=== PATIENT | male | born 1990 | race Caucasian/White ===

== ENCOUNTER 2023-08-04 21:58 | Emergency (ER) | payer OTHER, SELFPAY ==
[2023-08-04 22:06] VITALS: BP 179/126; PULSE 95; RESP 22; TEMP 36.6; O2SAT 95; BMI 40.7
--- NOTE | 2023-08-04 22:38 | ED_ITS ---
HPI - Back Pain/Injury General Chief Complaint: Back Pain/Injury Stated Complaint: BACK PAIN Time Seen by Provider: 08/04/23 22:31 History of Present Illness HPI Narrative: back pain. states past history of back pain. States he has a slipped disc . states he has treated in the past with exercise and Chiropractor. Developed pain 4 days ago. Hard to get out of bed. States once in his truck with ice on his back the pain eases up and feels better. He can step out of the truck and actual ly feel ok. Works as a welder apprentice gas. No weakness of his lower extremities. Pain right lower back . no recent injury Related Data Home Medications Medication Instructions Recorded Confirmed niacin 500 mg tablet 500 mg PO DAILY 08/04/23 08/04/23 Allergies Allergy/AdvReac Type Severity Reaction Status Date / Time No Known Drug Allergies Allergy Verified 08/04/23 22:12 Review of Systems ROS Status of ROS 10 or more systems reviewed and unremarkable except as noted in history and below [facility] Social History Smoking status: Current every day smoker Exam Constitutional Vital Signs, click to edit/add: Last Vital Signs Temp 98 F 08/04/23 22:06 Pulse 95 H 08/04/23 22:06 Resp 22 08/04/23 22:06 BP 180/100 H 08/04/23 22:55 Pulse Ox 95 08/04/23 22:06 O2 Del Method Room Air 08/04/23 22:06 Common normals: no apparent distress, average body habitus, oriented x3, no limitations, healthy appearing, alert and well nourished Other: no discomfort lying flat on his back. When he rolls onto his side he experiences spasmodic pain of his lower back Eye Common normals: EOMs intact bilaterally and conjunctivae normal Respiratory Common normals: normal respiratory effort, no retractions, no use of accessory muscles and clear to auscultation bilaterally Cardio Common normals: regular rate, regular rhythm, S1 normal heart sound and S2 normal heart sound GI Common normals: Normal to inspection, nondistended, normoactive bowel sounds present, soft to palpation and non-tender Back & Pelvis Other: right lumbar paravertebral muscle tenderness Extremity Common normals: normal to inspection and full ROM Neuro Common normals: oriented x3, CN's II-XII intact bilaterally, moves all extremities, no focal motor deficits and no sensory deficits noted Psych Appearance: grossly normal Course Vital Signs Vital signs: Vital Signs Temperature 98 F 08/04/23 22:06 Pulse Rate 95 H 08/04/23 22:06 Respiratory Rate 22 08/04/23 22:06 Blood Pressure 179/126 H 08/04/23 22:06 Pulse Oximetry 95 08/04/23 22:06 Oxygen Delivery Method Room Air 08/04/23 22:06 Temperature 98 F 08/04/23 22:06 Pulse Rate 95 H 08/04/23 22:06 Respiratory Rate 22 08/04/23 22:06 Blood Pressure 180/100 H 08/04/23 22:55 Pulse Oximetry 95 08/04/23 22:06 Oxygen Delivery Method Room Air 08/04/23 22:06 MDM - Back Pain/Injury MDM Narrative Medical decision making narrative: patient presents with lower back pain. similar pain in the past. Pain right lower lumbar musculature. Treated in the department with significant improvement in his pain. BP elevated. he is aware of this and doesn't want to treat it. States he will exercise. His RBS is also elevated and will need follow up. He does not have a PCP and he was provided with a name of the back tender insulation board PCP. He is discharged with a prescription for Norflex and also work note for today and tomorrow Lab Data Labs: Lab Results 08/04/23 Range/Units 22:50 WBC 7.3 (4.0-11.0) 10^3/uL RBC 5.01 (4.70-6.10) 10^6/uL Hgb 15.5 (14.0-18.0) g/dL Hct 44.7 (42.0-54.0) % MCV 89.2 (80.0-94.0) fL MCH 30.9 (25.9-34.0) pg MCHC 34.7 (29.9-35.2) g/dL RDW 12.0 (11.0-15.0) % Plt Count 203 (150-450) 10^3/uL MPV 10.6 (9.5-13.5) fL Neut % (Auto) 58.1 (43.0-75.0) % Lymph % (Auto) 26.9 (20.5-60.0) % [place] % (Auto) 10.3 (1.7-12.0) % Eos % (Auto) 3.6 (0.9-7.0) % Baso % (Auto) 0.7 (0.2-2.0) % Neut # (Auto) 4.2 (1.4-6.5) 10^3/uL Lymph # (Auto) 2.0 (1.2-3.8) 10^3/uL [place] # (Auto) 0.8 (0.3-0.8) 10^3/uL Eos # (Auto) 0.3 (0.0-0.7) 10^3/uL Baso # (Auto) 0.1 (0.0-0.1) 10^3/uL Abs Immat Gran (auto) 0.03 (0.00-0.03) 10^3/uL Imm/Tot Granulo (auto) 0.4 (0.0-0.5) % ESR 13 (<=15) mm/hr Sodium 138 (136-145) mmol/L Potassium 3.6 (3.5-5.1) mmol/L Chloride 102 (98-107) mmol/L Carbon Dioxide 28.2 (21.0-32.0) mmol/L Anion Gap 11.4 BUN 18.0 (7.0-18.0) mg/dL Creatinine 1.13 (0.70-1.30) mg/dL Est GFR ( Amer) >60 (>=60) Est GFR (Non-Af Amer) >60 (>=60) BUN/Creatinine Ratio 15.9 Glucose 175 H (74-106) mg/dL Calcium 8.7 (8.5-10.1) mg/dL C-Reactive Protein <1.0 (<=1.0) mg/dL Discharge Plan Discharge Chief Complaint: Back Pain/Injury Clinical Impression: Strain of lumbar region, Hyperglycemia, Hypertension Patient Disposition: Home, Self-Care Prescriptions / Home Meds: No Action niacin 500 mg tablet 500 mg PO DAILY Instructions: Hypertension (ED), Back Pain (ED), Diabetic Hyperglycemia (ED) Additional Instructions: follow up with your family doctor or with Dr Cardenas. Take Norflex twice daily as needed for back pain. Stand Alone Forms: Portal Instructions Referrals: Physician,Non-Staff, MD [Primary Care Provider] - 1 week
[2023-08-04 22:55] VITALS: BP 180/100
[2023-08-04 22:57] LABS: Basophils Absolute Auto 0.1 10^3/uL (0.0-0.1); Basophils Percent Auto 0.7 % (0.2-2.0); Eosinophils Absolute Auto 0.3 10^3/uL (0.0-0.7); Eosinophils Percent Auto 3.6 % (0.9-7.0); Hematocrit 44.7 % (42.0-54.0); Hemoglobin 15.5 g/dL (14.0-18.0); Immature Granulocytes Abs Auto 0.03 10^3/uL (0.00-0.03); Immature Granulocytes Pct Auto 0.4 % (0.0-0.5); Lymphocytes Percent Auto 26.9 % (20.5-60.0); Mean Corpuscular HGB Conc 34.7 g/dL (29.9-35.2); Mean Corpuscular Hemoglobin 30.9 pg (25.9-34.0); Mean Corpuscular Volume 89.2 fL (80.0-94.0); Mean Platelet Volume 10.6 fL (9.5-13.5); Monocytes Absolute Auto 0.8 10^3/uL (0.3-0.8); Monocytes Percent Auto 10.3 % (1.7-12.0); Neutrophils Absolute Auto 4.2 10^3/uL (1.4-6.5); Neutrophils Percent Auto 58.1 % (43.0-75.0); Platelet Count 203 10^3/uL (150-450); Red Blood Count 5.01 10^6/uL (4.70-6.10); White Blood Count 7.3 10^3/uL (4.0-11.0)
[2023-08-04 23:01] LABS: Erythrocyte Sedimentation Rate 13 mm/hr (<=15)
[2023-08-04 23:06] LABS: Anion Gap 11.4; BUN Creatinine Ratio 15.9; Calcium 8.7 mg/dL (8.5-10.1); Carbon Dioxide 28.2 mmol/L (21.0-32.0); Chloride 102 mmol/L (98-107); Estimated GFR (African America >60 (>=60); Estimated GFR (Non-African Ame >60 (>=60); Glucose 175 mg/dL (74-106); Potassium 3.6 mmol/L (3.5-5.1); Sodium 138 mmol/L (136-145)
[2023-08-04] MEDS: MAGNESIUM SULFATE IN WATER 2 GM/50 ML PREMIX IV (23:06)
[2023-08-04 23:07] LABS: C Reactive Protein <1.0 mg/dL (<=1.0)
[2023-08-04] MEDS: METHYLPREDNISOLONE SOD SUCC PF 125 MG/2 ML VIAL IVP (23:09)
[2023-08-04] MEDS: ORPHENADRINE 60 MG/ 2 ML VIAL IV (23:09)
== END 2023-08-05 00:25 | disposition home or self-care (01) ==
PROVIDERS: Emergency Provider Internal Medicine
DX: S39.012A Strain of muscle, fascia and tendon of lower back, initial encounter (principal); I10 Essential (primary) hypertension; X58.XXXA Exposure to other specified factors, initial encounter; R73.9 Hyperglycemia, unspecified; F17.210 Nicotine dependence, cigarettes, uncomplicated; Z79.899 Other long term (current) drug therapy
CPT/HCPCS: 36415; 80048; 85025; 85652; 86140; 96365; 96375; 99284; J2930

== ENCOUNTER 2023-08-07 15:23 | Outpatient (OUT) | payer SELFPAY ==
--- NOTE | 2023-08-07 15:58 | XR_ITS ---
[facility] [id number] Patient Name: JAMAL NICOLE MRN: [id number] date: 1990 Sex: M Assigned Patient Location: RAD Current Patient Location: RAD Accession/Order Number: [id number] Exam Date: 08/07/2023 15:45 Report Date: 08/07/2023 16:16 At the request of: MARIA DOLORES BROWN Procedure: XR thoracic spine 2V XR thoracic spine 2V, XR lumbar spine min 4V, 08/07/2023 3:45 PM EDT INDICATION: Low Back Pain COMPARISON: Prior x-ray dated 03/07/2020 There is a normal physiologic lumbar lordosis and thoracic kyphosis. Mild mid thoracic degenerative changes are noted. Mild degenerative changes at the level of L4-L5 and L5-S1 are noted. There is no acute fracture or dislocation. SI joints are unremarkable. There is nonspecific bowel gas. XR/XR thoracic spine 2V IMPRESSION: Degenerative changes. Electronically authenticated by: VICTORINO ARENAS Date: 08/07/2023 16:16
--- NOTE | 2023-08-07 15:58 | XR_ITS ---
[facility] [id number] Patient Name: JAMAL NICOLE MRN: [id number] date: 1990 Sex: M Assigned Patient Location: RAD Current Patient Location: [facility] Accession/Order Number: [id number] Exam Date: 08/07/2023 15:45 Report Date: 08/07/2023 16:16 At the request of: MARIA DOLORES BROWN Procedure: XR lumbar spine min 4V XR thoracic spine 2V, XR lumbar spine min 4V, 08/07/2023 3:45 PM EDT INDICATION: Low Back Pain COMPARISON: Prior x-ray dated 03/07/2020 There is a normal physiologic lumbar lordosis and thoracic kyphosis. Mild mid thoracic degenerative changes are noted. Mild degenerative changes at the level of L4-L5 and L5-S1 are noted. There is no acute fracture or dislocation. SI joints are unremarkable. There is nonspecific bowel gas. XR/XR lumbar spine min 4V IMPRESSION: Degenerative changes. Electronically authenticated by: VICTORINO ARENAS Date: 08/07/2023 16:16
== END 2023-08-07 15:24 | disposition home or self-care (01) ==
LOC: RAD 15:25
PROVIDERS: PCP Nurse Practitioner; Visit Provider Nurse Practitioner
DX: M54.50 Low back pain, unspecified (principal); M51.36 Other intervertebral disc degeneration, lumbar region; M51.34 Other intervertebral disc degeneration, thoracic region
CPT/HCPCS: 72070; 72110

== ENCOUNTER 2023-08-14 14:12 | Outpatient (RCR) | payer SELFPAY | END 2023-08-30 16:41 | disposition home or self-care (01) | LOC: PT 14:12 | PROVIDERS: PCP Nurse Practitioner; Visit Provider Nurse Practitioner | DX: M54.50 Low back pain, unspecified (principal); M54.9 Dorsalgia, unspecified | CPT/HCPCS: 97012; 97110; 97162 ==

== ENCOUNTER 2024-09-21 18:36 | Emergency (ER) | payer OTHER, SELFPAY ==
[2024-09-21 18:45] VITALS: BP 180/100; PULSE 86; TEMP 36.9; O2SAT 97; BMI 48.4
--- OUTSIDE RECORDS SUMMARY | 2024-09-21 18:53 | XMS_ITS | CCD ---
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 advised. Normal [facility] Chlam/GC/Trich,NAAon 023 C. trachomatis rRNA GRISELDA+probe Ql (Unsp spec) Negative Invalid Interpretation Code Negative [facility] Comment on above: Performed By: #### 1 [id number], [id number] ####[facility] [id number] [facility] [place] [place] [address] N. gonorrhoeae rRNA GRISELDA+probe Ql (Unsp spec) Negative Invalid Interpretation Code Negative [facility] Comment on above: Performed By: #### 1 [id number], [id number] ####[facility] [id number] [facility] [place] [address] T. vaginalis rRNA GRISELDA+probe Ql (Unsp spec) Negative Invalid Interpretation Code Negative [facility] Comment on above: Result Comment: Perf ormed at: =G [facility] [place] [address] [facility] [place], [place] [id number] MD Catherine Deshpande Performed By: #### 1 [id number], [id number] ####[facility] [id number] [facility] [place] [place] [address] Family Medicine Office/Clini c Noteon 06-06-2023 Family Medicine Office/Clinic Note HPI Staff Emanuel is a 33 year old male presenting with Blood in Semen Pt was under the influence of Alcohol and drank Febreeze 2 weeks ago states went down smooth and did have diarrhea. pt noticed blood in semen yesterday, denies pain with ejaculation but does have blood, intermittent burning with urination. Pt was testing in 02/2023 for STD's no concerns for STD hasn't had any sexual contact since last time was checked. History of Present Illness pt presents today with c/o blood in semen Review of Systems PHQ Score Initial Depression Screen Score: 0 ROS - Provider Constitutional: no fever, no chills, no sweats, no fatigue Respiratory: no shortness of breath, no cough, no orthopnea, no wheezing. Cardiovascular: no chest pain, no palpitations, no edema. Neurologic: no headache, no dizziness, no numbness, no weakness. Physical Exam Vitals & Measurements HR: 118(Peripheral) RR: 18 BP: 172/110 SpO2: 98% HT: 67 in HT: 170.2 cm WT: 115.4 kg WT: 253.88 lb BMI: 39.84 General: alert, no acute distress ENMT: oral mucosa moist, no pharyngeal erythema or exudate Cardiovascular: regular rate and rhythm, normal peripheral perfusion Respiratory: Lungs CTA, respirations non labored Extremities: no deformity, no trauma Neurological: oriented x 4, LOC appropriate for age, CN II-XII intact, motor strength equal & normal bilaterally, speech normal Assessment/Plan 1. Abnormal penile discharge, with blood (R36.9: Urethral discharge, unspecified) pt presents today c/o having blood in semen when ejaculating. pt denies pain with ejaculation, but does have some burning when he urinates. will collect urine in office and do U/A and will also test for std's. encouraged pt to stay well hydrated and decrease alcohol intake. will notify pt of results when they are in. pt denies having intercourse since November. So he does not think it is a STD. pt admits to drinking febreeze 2 weeks ago and he is concerned that is why he has blood in his semen. reassured pt that the two are probably not related. he did have some diarrhea. but otherwise no other ill effects from drinking febreeze. pt unable to provide urine sample after drink several cups of water. specimen cup was provided. he will drop urine off later Ordered: Chlam/GC/Trich,GRISELDA UA With Cult Reflex 2. Hypertension (I10: Essential (primary) hypertension) BP is elevated in office again today. pt states I am not taking BP meds. I don't like how they make me feel. educated pt on the importance of controlling BP. Discussed risks of heart attack and stroke. pt states he appreciates my concern but he will not take BP meds. Pt is currently a heavy smoker and drinker and understands his risks of cardiac event or blood clot. Ordered: Chlam/GC/Trich,GRISELDA UA With Cult Reflex 3. Refuses treatment (Z53.20: Procedure and treatment not carried out because of patient's decision for unspecified reasons) pt refuses to start BP medication. Ordered: Chlam/GC/Trich,GRISELDA UA With Cult Reflex 4. BMI 39.0-39.9,adult (Z68.39: Body mass index [BMI] 39.0-39.9, adult) BMI education complete Ordered: Chlam/GC/Trich,GRISELDA UA With Cult Reflex 5. Smoker (F17.200: Nicotine dependence, unspecified, uncomplicated) consider not smoking. not willing to try today Ordered: Chlam/GC/Trich,GRISELDA UA With Cult Reflex Follow-up No qualifying data available Problem List/Past Medical History Ongoing Abnormal penile discharge, with blood H/O: HTN (hypertension) Hypertension Refuses treatment Historical No qualifying data Procedure/Surgical History Arthroscopy of knee, Loss of teeth due to extraction. Medications niacin 500 mg oral tablet, 500 mg= 1 tab(s), Oral, Daily Allergies Suprax (Unknown) Social History Tobacco Current vaping or e-cigarette use Smokeless Tobacco Use:. Vaping, Ready to change: No. Household tobacco concerns: No., 06/06/2023 Family History Diabetes mellitus type 1: Father. Hypertension: Mother. Immunizations Vaccine Date Status Comments SARS-CoV-2 mRNA (tozinameran 5y-11y) vac - Not Given Postpone due to refusal Normal [facility] Comment on above: Result Comment: Elec tronically Signed By: Nancy Blevins\.clayton\Date and Time Signed: 06/06/23 12:37 EDT UA With Cult Reflexon 2022 Bacteria LM Ql (Urine sed) TRACE Normal Trace [facility] Comment on above: Performed By: #### 1 [id number], [id number] ####[facility] [id number] [place] [address] Bilirubin Ql (U) Negative Normal Negative [facility] Comment on above: Performed By: #### 1 [id number], [id number] ####[facility] [address] [place] [address] Clarity (U) CLEAR Normal Clear [facility] Comment on above: Performed By: #### 1 [id number], [id number] ####[facility] [address] [place] [address] Color (U) YELLOW Normal Yellow [facility] Comment on above: Performed By: #### 1 [id number], [id number] ####[address] [place] [address] Epithelial cells.squamous LM.HPF (Urine sed) [#/Area] 0-2 Normal 0-2 [facility] Comment on above: Performed By: #### 1 [id number], [id number] ####[address] [place] [address] Glucose Test strip (U) [Mass/Vol] Negative Normal Negative [facility] Comment on above: Performed By: #### 1 [id number], [id number] ####[address] [address] Hemoglobin Ql (U) Negative Normal Negative [facility] Comment on above: Performed By: #### 1 [id number], [id number] ####[address] [address] Ketones (U) [Mass/Vol] Negative Normal Negative [facility] Comment on above: Performed By: #### 1 [id number], [id number] ####[address] [address] [place].plasma/Lithi um.RBC (Bld) [Mass ratio] 0-3 Normal 0-3 [facility] Comment on above: Performed By: #### 1 [id number], [id number] ####[address] [place] [address] Nitrite Ql (U) Negative Normal Negative [facility] Comment on above: Performed By: #### 1 [id number], [id number] ####[address] [place] [address] pH (U) 6.0 [pH] Invalid Interpretation Code 5.0-9.0 [facility] Comment on above: Performed By: #### 1 [id number], [id number] ####[address] [place] [address] Protein (U) [Mass/Vol] Negative Normal Negative [facility] Comment on above: Performed By: #### 1 [id number], [id number] ####[address] [address] Specific gravity (U) [Rel density] <=1.005 Invalid Interpretation Code 1.005-1.030 [facility] Comment on above: Performed By: #### 1 [id number], [id number] ####[address] [address] Type of Urine collection method Random Urine Normal [facility] Comment on above: Performed By: #### 1 [id number], [id number] ####[address] [address] Urobilinogen Qn (U) 0.2 {Dariusz'U}/dL Normal 0.0-1.0 [facility] Comment on above: Performed By: #### 1 [id number], [id number] ####[address] [address] WBC Auto Ql (U) Negative Normal Negative [facility] Comment on above: Performed By: #### 1 [id number], [id number] ####[facility] [address] [place] [address] WBC LM.HPF (Urine sed) [#/Area] 0-5 Normal 0-5 [facility] Comment on above: Performed By: #### 1 [id number], [id number] ####[facility] [address] [place] [address] URINALYSISOrdered By: Lawrence crocker on 06-06-2023 Bacteria LM Ql (Urine sed) Trace /HPF Normal Trace/HPF [facility] UA Auto SS Bilirubin Ql (U) Negative (06/06/23 12:40 PM) Normal Negative [facility] UA Auto SS Clarity (U) Clear (06/06/23 12:40 PM) Normal Clear [facility] UA Auto SS Color (U) Yellow (8/18/23 12:40 PM) Normal Yellow [facility] UA Auto SS Epithelial cells.squamous LM.HPF (Urine sed) [#/Area] 0-2 /HPF Normal 0-2/HPF [facility] UA Auto SS Glucose Test strip (U) [Mass/Vol] Negative (06/06/23 12:40 PM) Normal Negative [facility] UA Auto SS Hemoglobin Ql (U) Negative (06/06/23 12:40 PM) Normal Negative [facility] UA Auto SS Ketones (U) [Mass/Vol] Negative (06/06/23 12:40 PM) Normal Negative [facility] UA Auto SS [place].plasma/Lithi um.RBC (Bld) [Mass ratio] 0-3 /HPF Normal 0-3/HPF [facility] UA Auto SS Nitrite Ql (U) Negative (06/06/23 12:40 PM) Normal Negative [facility] UA Auto SS pH (U) 6.0 *NA* (06/06/23 12:40 PM) Invalid Interpretation Code 5.0 - 9.0 [facility] UA Auto SS Protein (U) [Mass/Vol] Negative (06/06/23 12:40 PM) Normal Negative [facility] UA Auto SS Specific gravity (U) [Rel density] <=1.005 *NA* (06/06/23 12:40 PM) Invalid Interpretation Code 1.005 - 1.030 [facility] UA Auto SS UA Spec Desc Random Urine (06/06/23 12:40 PM) Normal [facility] UA Auto SS Urobilinogen Qn (U) 0.0102922 {Dariusz'U}/dL Normal 0.0 - 1.0 EU/dL [facility] UA Auto SS WBC Auto Ql (U) Negative (06/06/23 12:40 PM) Normal Negative [facility] UA Auto SS WBC LM.HPF (Urine sed) [#/Area] 0-5 /HPF Normal 0-5/HPF [facility] UA Auto SS COVID Quick Testingon 2020 Result Negative [facility] Other Operative Reporton 0 Operative Report MR#: [id number] [facility] Pt. Name: Emanuel Patel Room #: 0C Discharge Date: Birthdate: 1990 OPERATIVE REPORT DATE OF SURGERY: 04/04/2020 SURGEON: Cedrick Mendoza M.D. ASSISTANTS: 1. Fidencio Painting MD. 2. Ana Lainez MD. 3. Aiden Ardon MD. PREOPERATIVE DIAGNOSIS: Left medial meniscus tear. POSTOPERATIVE DIAGNOSES: 1. Left medial meniscus tear. 2. Left medial femoral condyle chondromalacia. PROCEDURE PERFORMED: 1. Left medial meniscus debridement. 2. Medial femoral condyle chondroplasty. 3. Fat pad debridement. ANESTHESIA: General. FLUIDS: Per anesthesia record. BLOOD LOSS: Minimal complications none. SPECIMENS: None. IMPLANTS: None. INDICATION: THE patient is a 30-year-old male who presented to our clinic with significant mechanical symptoms in his left knee. MRI demonstrated a likely meniscal tear in the aforementioned procedure to offer the patient after he failed extensive nonoperative management. Risks, benefits, and alternatives were discussed the patient elected to proceed. Informed consent was obtained. DESCRIPTION OF PROCEDURE: The patient was in the preoperative holding area. The operative site was marked by the attending physician. Anesthesia met the patient and brought him back to the operating room, positioned supine on the operating table. Anesthesia was induced. He was intubated. The nonsterile tourniquet was applied, but not used during the case. The extremity was prepped and draped in normal sterile fashion. Surgical time-out was performed to verify correct patient, procedure, site of surgery, and antibiotics had been given. We began by marking out our bony landmarks. We then established our lateral portal and introduced our scope. We first entered the suprapatellar compartment and noted there was no significant patellar wear and we then moved to the lateral recess. There were no free bodies visualized in the lateral recess. We then moved to the medial recess and once again found no significant bleeding. We then fell into the medial compartment and established our medial portal under direct visualization, first using a spinal needle guidance and then using an inverted scalpel under direct visualization to avoid meniscal injury. At this point, we introduced a probe and then began to finish the rest of our diagnostic arthroscopy. We visualized the medial meniscus, saw some irregularity along the body in the posterior horn. We probed the body, found the horizontal cleavage tear in this area. We also probed the posterior horn. There was some irregularity, but the horn was stable. We then moved to the intercondylar notch. The ACL was intact. We then moved to the lateral compartment, found the lateral meniscus was pristine with no cartilage injury. Again on the medial side, there was some cartilaginous wear of the medial femoral condyle, but only grade 1 chondromalacia. We then began by first performing our medial femoral condyle chondroplasty, which I slightly debrided the loose cartilage flaps back to stable borders. After this was performed, we then turned our attention to the meniscus. We first went to the posterior horn. We used our shaver and elected to debride the complex posterior root tear, but noted that the tear was stable. The meniscus could not be drawn into the joint after full debridement of the loose pieces. We then turned to the body. We debrided the horizontal cleavage piece and then used a meniscal biter to reshape the meniscus into a smooth similar shape. We then cleaned this up with the ArthroCare as well and then took our final pictures on the medial side, noted excellent improvement of the meniscal tears, back to stable borders with good meniscal contour. We then moved to the intercondylar notch. Some of the fat layer was debrided, but the ACL was intact and then we moved last into the suprapatellar compartment and debrided some of the fat pad to avoid any potential impingement in this area. Once this was debrided, we then used ArthroCare to control bleeding and concluded our arthroscopy. After taking a full round of pictures, the instruments were withdrawn. The knee fluid was extracted and then some local anesthetic was used on the skin incisions. We then sutured the wound with 3-0 Novafil, dressed it with Xeroform gauze, Webril, and a double Francis wrap. The patient was awakened from anesthesia, extubated, moved back to [facility], and taken to PACU in stable condition. PLAN: 1. The patient will be weightbearing as tolerated of the operative extremity. 2. DVT prophylaxis will be instituted. 3. He will go home today and return to Dr. Mendoza's clinic in 2 weeks' time for a recheck. Dr. Mendoza was present for all critical portions of procedure. All sponge and needle counts were correct at the end of the case. Electronically Signed by: Cedrick Mendoza M.D. 04/07/2020 05:02 P Cedrick Mendoza M.D. I was present for the serrano and critical portions and I was otherwise immediately available to assist. Date Dict: 04/04/2020/02:09 P/Fidencio Painting MD Date Trans: 04/05/2020 02:19 A/mmo [id number] Normal [facility] POC GLUCOSE LABon 04-04-2020 Glucose [Mass/Vol] 114 mg/dL High 70-100 [facility] Comment on above: Performed By: #### 8 [id number] #### [facility] [address] *SARS-CoV-2 COVID-19on 04-01 [id number] Not Detected Normal Not Detected [facility] Comment on above: Order Comment: The A ptima SARS-CoV-2 assay is a nucleic acid amplification test intended for the qualitative detection of RNA from SARS-CoV-2 isolated and purified from nasopharyngeal (BUFFET WAITER/WAITRESS), nasal and oropharyngeal (OP) swab specimens from patients with signs and symptoms of infection who are suspected of COVID-19. Results are for the identification of SARS-CoV-2 RNA. The SARS-CoV-2 RNA is generally detectable in nasopharyngeal and oropharyngeal swabs during the acute phase of infection. The Aptima SARS-CoV-2 Assay on the Phylogy and Phylogy Fusion system is intended for use by laboratory personnel specifically instructed and trained in the operation of the [place] and Phylogy Fusion system. The Aptima SARS-CoV-2 assay is only for use under the Food and Drug Administration Emergency Use Authorization. Testing is limited to laboratories certified under the Clinical Laboratory Improvement Amendments of 1988 (CLIA), 42 U.S.C. ???263a, to perform high complexity tests. Not Detected: Not detected does not preclude SARS-CoV-2 infection and should not be used as the sole basis for patient management decisions. Not detected results must be combined with clinical observations, patient history, and epidemiological information. Performed By: #### 3 [id number] #### [facility] [address] *MRSA/MSSA DNA NASALon 03-27 *MRSA/MSSA DNA NASAL Clinical Report: (D ) Specimen: NASAL SWAB Collected: 03/27/2020 10:39 Status: Final Last Updated: 03/27/2020 15:48 MSSA DNA (Final) Negative MRSA DNA (Final) Negative Normal [facility] Comment on above: Performed By: #### 3 1595 #### [facility] [address] [place] [address], [facility] APTTon 03-27-2020 aPTT Coag (Bld) [Time] 26.5 s Normal 25.0-35.0 [facility] Comment on above: Result Comment: ALL RESULTS MUST BE INTERPRETED WITH RESPECT TO BLOOD DRAWING ARTIFACT OR DILUTION ERROR OF ANTICOAGULANT AT THE TIME OF SAMPLING. THE APTT SHOULD NOT BE USED TO MONITOR UNFRACTIONATED HEPARIN THERAPY, THIS LABORATORY NO LONGER HAS AN ESTABLISHED THERAPEUTIC RANGE BASED ON THE APTT. IT IS RECOMMENDED THAT THE UFH - HEPARIN ASSAY (ANTI-XA ACTIVITY) BE USED FOR THIS PURPOSE. Performed By: #### 5 [id number], [id number] #### [facility] [address] [place] [address], [facility] BASIC METABOLIC PANELon Calcium [Mass/Vol] 9.0 mg/dL Normal 8.6-10.3 [facility] Comment on above: Performed By: #### 0 0071 #### [facility] [address] [place] [place] [address], [facility] Chloride [Moles/Vol] 102 mmol/L Normal 98-107 [facility] Comment on above: Performed By: #### 0 0071 #### [facility] [address] [address], [facility] CO2 [Moles/Vol] 26 mmol/L Normal 21-31 [facility] Comment on above: Performed By: #### 0 0071 #### [facility] [address] [place] [id number], [facility] Creatinine [Mass/Vol] 0.74 mg/dL Normal 0.70-1.30 [facility] Comment on above: Performed By: #### 0 0071 #### [facility] [address] [place] [address], [place] GFR/1.73 sq M predicted among blacks MDRD (S/P/Bld) [Vol rate/Area] mL/min/{1.73_m2} Normal >60 [facility] Comment on above: Performed By: #### 0 0071 #### [facility] [address] [place] [address], [place] GFR/1.73 sq M predicted among non-blacks MDRD (S/P/Bld) [Vol rate/Area] mL/min/{1.73_m2} Normal >60 [facility] Comment on above: Performed By: #### 0 0071 #### [facility] [address] [place] [address], [facility] Glucose [Mass/Vol] 134 mg/dL High 70-100 [facility] Comment on above: Performed By: #### 0 0071 #### [facility] [address] [place] [address], [facility] Potassium [Moles/Vol] 3.7 mmol/L Normal 3.5-5.1 [facility] Comment on above: Performed By: #### 0 0071 #### [facility] [address] [place] [address], [place] Sodium [Moles/Vol] 135 mmol/L Low 136-145 [facility] Comment on above: Performed By: #### 0 0071 #### [facility] [address] [place] [address], [place] Urea nitrogen [Mass/Vol] 16 mg/dL Normal 7-25 [facility] Comment on above: Performed By: #### 0 0071 #### [facility] [address] CBC W/DIFFon 03-27-2020 ABS BASOPHILS 0.0 10*3/uL Normal 0.0-0.2 [facility] Comment on above: Performed By: #### 5 0103 #### [facility] [address] ABS IMM GRANS 0.0 10*3/uL Normal 0.0-0.2 [facility] Comment on above: Performed By: #### 5 0103 #### [facility] [address] ABS NEUTROPHILS 2.6 10*3/uL Normal 1.6-7.6 [facility] Comment on above: Performed By: #### 5 0103 #### [facility] [address] Basophils/100 WBC (Bld) 0.6 % Normal 0.0-1.0 [facility] Comment on above: Performed By: #### 5 0103 #### [facility] [address] [place] [address], [facility] Eosinophils (Bld) [#/Vol] 0.3 10*3/uL Normal 0.0-0.5 [facility] Comment on above: Performed By: #### 5 0103 #### [facility] [address] [place] [address], [facility] Eosinophils/100 WBC (Bld) 5.7 % Normal 0.0-6.0 [facility] Comment on above: Performed By: #### 5 0103 #### [facility] [address] Erythrocyte distribution width (RBC) [Ratio] 12.3 % Normal 11.5-15.0 [facility] Comment on above: Performed By: #### 5 0103 #### [facility] [address] [place] [address], [facility] Hematocrit (Bld) [Volume fraction] 45.9 % Normal 39.0-50.0 [facility] Comment on above: Performed By: #### 5 0103 #### [facility] [address] [place] [address], [facility] Hemoglobin (Bld) [Mass/Vol] 15.9 g/dL Normal 13.0-17.0 [facility] Comment on above: Performed By: #### 5 0103 #### [facility] [address] [place] [address], [facility] IMMATURE GRANS 0.4 % Normal 0.0-1.0 [facility] Comment on above: Performed By: #### 5 0103 #### [facility] [address] [facility]. [address] Lymphocytes (Bld) [#/Vol] 1.4 10*3/uL Normal 1.2-4.0 [facility] Comment on above: Performed By: #### 5 0103 #### [facility] [facility] [address] [place] [address], [facility] Lymphocytes/100 WBC (Bld) 28.3 % Normal 20.0-45.0 [facility] Comment on above: Performed By: #### 5 [id number] #### [facility] [address] [place] [address], [facility] MCH (RBC) [Entitic mass] 30.1 pg Normal 27.0-33.0 [facility] Comment on above: Performed By: #### 5 0103 #### [facility] [address] [place] [address], [facility] MCHC (RBC) [Mass/Vol] 34.6 g/dL Normal 32.0-35.0 [facility] Comment on above: Performed By: #### 5 0103 #### [facility] [address] [place] [address], [facility] MCV (RBC) [Entitic vol] 86.8 fL Normal 82.0-98.0 [facility] Comment on above: Performed By: #### 5 0103 #### [facility] [address] [place] [address], [facility] Monocytes (Bld) [#/Vol] 0.7 10*3/uL Normal 0.1-1.0 [facility] Comment on above: Performed By: #### 5 0103 #### [facility] [address] [place] [address], [facility] MONOS 12.8 % High 5.0-12.0 [facility] Comment on above: Performed By: #### 5 102 #### [facility] [address] [place] [address], [facility] Neutrophils/100 WBC (Bld) 52.2 % Normal 40.0-72.0 [facility] Comment on above: Performed By: #### 102 #### [facility] [address] [facility] [place] [address], [facility] Nucleated RBC/100 WBC (Bld) [Ratio] 0 % Normal 0-0 [facility] Comment on above: Performed By: #### 5 3 #### [facility] [address] [place] [address], [facility] PLAT CNT 230 10*3/uL Normal 150-400 [facility] Comment on above: Performed By: #### 5 3 #### [facility] [address] [place] [id number], [facility] RBC (Bld) [#/Vol] 5.29 10*6/uL Normal 4.20-5.70 [facility] Comment on above: Performed By: #### 3 #### [facility] [address] [place] [id number], [place] WBC (Bld) [#/Vol] 5.06 10*3/uL Normal 4.00-10.60 [facility] Comment on above: Performed By: #### 5 0103 #### [facility] [address] [place] [address], [facility] PROTHROMBIN TIMEon 0 INR Coag (PPP) [Relative time] 0.90 {INR} Low 0.91-1.16 [facility] Comment on above: Result Comment: ACCC P RECOMMENDED INR FOR WARFARIN THERAPY ------- ------- CONDITION INR PROPHYLAXIS OF VENOUS THROMBOSIS 2-3 (HIGH-RISK SURGERY) TREATMENT OF VENOUS THROMBOSIS 2-3 TREATMENT OF PULMONARY EMBOLISM 2-3 PREVENTION OF SYSTEMIC EMBOLISM: 2-3 ACUTE MYOCARDIAL INFARCTION TISSUE HEART VALVES VALVULAR HEART DISEASE ATRIAL FIBRILLATION RECURRENT SYSTEMIC EMBOLISM MECHANICAL HEART VALVE 2.5-3.5 FROM: ORAL ANTICOAGULANTS. MECHANISM OF ACTION, CLINICAL EFFECTIVENESS, AND OPTIMAL THERAPEUTIC RANGE. CHEST 1995;108:231S-246S. Performed By: #### 5 [id number], [id number] #### [facility] [address] [place] [address], [facility] PT Coag (PPP) [Time] 12.1 s Low 12.3-14.8 [facility] Comment on above: Result Comment: ALL RESULTS MUST BE INTERPRETED WITH RESPECT TO BLOOD DRAWING ARTIFACT OR DILUTION ERROR OF ANTICOAGULANT AT THE TIME OF SAMPLING. Performed By: #### 5 [id number], [id number] #### [facility] [address] [place] [address], [facility] OUTSIDE IMAGES FOR CONSULTAT IONon 03-16-2020 OUTSIDE IMAGES FOR CONSULTATION [facility] Department of Radiology [address] [place] [address] Patient Name: EMANUEL PATEL : 1990 Sex: M Age: Race: NA Pt. Location: OUTP Patient Status: D Ordered Date: 03/16/2020 3:25:00 PM Completed Date: 03/16/2020 03:26 PM Requesting Provider: CEDRICK MENDOZA Attending Provider: CEDRICK MENDOZA Report Copy To: Signs & Symptoms: Left Knee Pain History: MRI Of Left Knee Images are from [facility] Taken on 10/26/19 Requesting physician Cedrick Mendoza Comments: Exam: OUTSIDE IMAGES FOR CONSULTATION OUTSIDE IMAGES FOR CONSULTATION 03/16/2020 3:26 PM OUTSIDE STUDY: MRI of the left knee TECHNIQUE: Outside MRI images of the left knee obtained from [facility] dated October 26, 2019. Image review with formal consultation was requested by Dr. Mendoza. FINDINGS :Multiplanar MRI examination just are submitted for interpretation from outside institution in the form of sagittal T2, proton density, T1, coronal proton density, axial T2 and coronal T2, T1 and inversion recovery sequence as well as sagittal T2 fast spin-echo sequences The medial, lateral collateral ligaments, ACL and PCL appear intact. There is small suprapatellar joint effusion seen. There is normal marrow signal intensity. The quadriceps tendon and patellar tendon appear intact. No acute bony pathology is appreciated. The articular cartilage appears intact. Patellar retinaculum appears intact on both sides. There is truncation of the anterior part of the medial meniscus raising possibility of possible radial tear but no adjacent marrow edema is appreciated. This is likely remote in nature IMPRESSION: Possible small tear of the radial-type in the anterior horn of the medial meniscus. Otherwise, unremarkable MRI examination of the knee apart from small suprapatellar effusion Please note: Our interpretation of studies performed at an outside institution is limited by factors, which may include the absence of technical specifics of the image, undisclosed clinical information and the unavailability of the original interpretation. Specialist at the institution that performed the study may have access to information not available to us that could make a difference in this interpretation. Electronically signed: Otilio Evangelista. Transcribed by: [email or web address], User Resident: Electronically Signed by: OTILIO EVANGELISTA @ 03/22/2020 11:28 AM Normal [facility] XR LSPINE 2_3 VIEWSon 2019 XR LSPINE 2_3 VIEWS EXAM: XR L-SPINE 2-3 VIEWS HISTORY: 30 years old Male with Traumatic injury. PRIOR: None available at time of dictation. FINDINGS: There is no evidence for fracture or dislocation. Narrowing of the intervertebral disc space at the level of L5 and S1 posteriorly is suggested. No definite significant vertebral body height loss is appreciated. The transverse processes are intact within the limitations of mild overlapping of structures. No definite focal soft tissue abnormalities are identified. No definite radiopaque foreign bodies are identified. IMPRESSION: No acute fracture or dislocation. Electronically authenticated by: TESS SHAIKH Date: 2020-03-08 01:59 Normal [facility] XR TSPINE 2 VIEWSon 03-08-20 20 XR TSPINE 2 VIEWS EXAM: XR T-SPINE 2 VIEWS HISTORY: 30 years old Male with Traumatic injury. PRIOR: None available at time of dictation. FINDINGS: There is no evidence for fracture or dislocation. The most superior thoracic spine is obscured secondary to overlapping of structures. Minimal endplate degenerative change in the lower thoracic spine. The pedicles are intact. Alignment is unremarkable. No definite focal soft tissue abnormalities are identified. No definite radiopaque foreign bodies are identified. IMPRESSION: No acute displaced fracture or dislocation. Electronically authenticated by: TESS SHAIKH Date: 2020-03-08 02:09 Normal [facility] XR KNEE LT 4V OR >on 019 XR KNEE LT 4V OR > Patient: EMANUEL PATEL Exam Date: 09/21/2019 : 1990 Gender:M Ordering : DR LIVE KNUTSON Admission #: [id number] Family : DR AMANDA HOGUE . Order #: [id number] CLICK HERE TO VIEW EXAM RADIOLOGY REPORT PROCEDURE: RADIOGRAPH KNEE LEFT MIN 4 VIEWS COMPARISON: KNEE LT 4V OR >, 12/28/2008. INDICATIONS: Acute left knee pain after injury FINDINGS: BONES: No fracture, acute abnormality, or significant arthropathy. SOFT TISSUES: No visible soft tissue swelling or radiopaque foreign body. EFFUSION: None visible. OTHER: Negative. CONCLUSION: 1. No acute bone abnormality or significant degenerative changes. Dictated by: David Palma M.D. on 09/21/2019 at 22:25 Approved by: David Palma M.D. on 09/21/2019 at 22:26 Normal [facility] Vital Signs Date Time Vital Sign Value Performing Clinician Facility 05-19-2024 14:05-0400 Body height 170.18 cm [facility] 05-19-2024 14:05-0400 Body mass index (BMI) [Ratio] 44.1 kg/m2 [facility] 05-19-2024 14:05-0400 Body temperature 99.1 [degF] [facility] 05-19-2024 14:05-0400 Body weight 128 kg [facility] 05-19-2024 14:05-0400 Diastolic blood pressure 112 mm[Hg] [facility] 05-19-2024 14:05-0400 Heart rate 92 /min [facility] 05-19-2024 14:05-0400 Respiratory rate 18 /min [facility] 05-19-2024 14:05-0400 SaO2% (BldA) [Mass fraction] 98 % [facility] 05-19-2024 14:05-0400 Systolic blood pressure 161 mm[Hg] [facility] 05-17-2024 15:35-0400 Body height 170.18 cm [facility] 05-17-2024 15:35-0400 Body mass index (BMI) [Ratio] 44.1 kg/m2 [facility] 05-17-2024 15:35-0400 Body temperature 98.4 [degF] [facility] 05-17-2024 15:35-0400 Body weight 128.02 kg [facility] 05-17-2024 15:35-0400 Heart rate 88 /min [facility] 05-17-2024 15:35-0400 Respiratory rate 18 /min [facility] 05-17-2024 15:35-0400 SaO2% (BldA) [Mass fraction] 98 % [facility] 04-24-2022 14:40-0400 Body height 170.18 cm Cassie Peoplesmond Other [email or web address] [facility] [employer] Other 04-24-2022 14:40-0400 Body mass index (BMI) [Ratio] 42.75 kg/m2 Cassie Peoplesmond Other [facility] Other 04-24-2022 14:40-0400 Body temperature 98.5 [degF] Cassie Peoplesmond Other [facility] Other 04-24-2022 14:40-0400 Body weight 123.83 kg Cassie Peoplesmond Other [facility] Other 04-24-2022 14:40-0400 Diastolic blood pressure 84 mm[Hg] Cassie Lashell Other [facility] Other 04-24-2022 14:40-0400 Respiratory rate 18 /min Cassie Peoplesmond Other [facility] Other 04-24-2022 14:40-0400 SaO2% (BldA) [Mass fraction] 97 % Cassie Peoplesmond Other [facility] Other 04-24-2022 14:40-0400 Systolic blood pressure 135 mm[Hg] Cassie Lobo Other [facility] Other 10-04-2021 14:45-0500 Body height 170.18 cm Mahnaz Arce Other [facility] Other 10-04-2021 14:45-0500 Body mass index (BMI) [Ratio] 45.42 kg/m2 Mahnaz Arce Other [facility] Other 10-04-2021 14:45-0500 Body temperature 97.7 [degF] Mahnaz Arce Other [facility] Other 10-04-2021 14:45-0500 Body weight 131.54 kg Mahnaz Arce Other [facility] Other 10-04-2021 14:45-0500 Respiratory rate 18 /min Mahnaz Arce Other [facility] Other 10-04-2021 14:45-0500 SaO2% (BldA) [Mass fraction] 97 % Mahnaz Arce Other [facility] Other Encounters Encounter Date Encounter Type Care Provider Facility Start: 05-20-2024 End: 05-20-2024 ambulatory Nancy Wilson Facility:[facility] [place] [facility] Start: 05-19-2024 End: 05-19-2024 ambulatory [facility] Work Phone: Start: 05-19-2024 End: 05-19-2024 Patient encounter procedure [facility] [place] Work Phone: Start: 05-17-2024 End: 05-17-2024 ambulatory [facility] Work Phone: Start: 05-17-2024 End: 05-17-2024 Patient encounter procedure [facility] [place] Work Phone: Start: 02-20-2024 End: 02-20-2024 Lab Drop off Nancy L Steve [facility] Start: 02-20-2024 End: 02-20-2024 ambulatory Nancy L Steve Facility:[facility] Start: 08-06-2023 End: 08-06-2023 ambulatory Nancy L Steve Facility:[facility] [place] [facility] Start: 06-06-2023 End: 06-06-2023 ambulatory Nancy L Steve Facility:[facility] Start: 06-06-2023 End: 06-06-2023 Lab Drop off Nancy L Steve [facility] Start: 06-06-2023 End: 06-06-2023 ambulatory Nancy L Steve Facility:[facility] [place] [facility] Start: 02-26-2023 End: 02-26-2023 Lab Drop off Nancy L Steve [facility] Start: 04-24-2022 End: 04-24-2022 ambulatory Cassie Lobo Other [email or web address] [facility] [employer] Other Start: 04-24-2022 Office outpatient visit 15 minutes Cassie Lobo [facility] Start: 10-04-2021 End: 10-04-2021 ambulatory Mahnaz Arce Other [facility] Other Start: 10-04-2021 Office outpatient visit 15 minutes Mahnazmonik Arce [facility] Start: 04-04-2020 End: 04-05-2020 Patient encounter procedure CEDRICK FREITASHEIM Facility:[facility] Start: 03-07-2020 End: 03-08-2020 Patient encounter procedure KYAW BULL Facility:[facility] Start: 09-21-2019 End: 09-21-2019 Patient encounter procedure LIVE KNUTSON Facility:[facility] Procedures Date Procedure Procedure Detail Performing Clinician Start: 04-04-2020 ANESTH KNEE JOINT SURGERY CASSIE CARLSON Start: 04-04-2020 KNEE ARTHROSCOPY/SURGERY CEDRICK ZENAHEIM Arthroscopy of knee Nancy west Comment on above: 2019 Loss of teeth due to extraction (disorder) Nancy Wilson Comment on above: 2 extracted Refusal of treatment by patient Refuses treatment Nancy Wilson Plan of Treatment Date Care Activity Detail Author Patient Education Low Back Pain (DC) [facility] Work Phone: Immunizations Immunization Date Immunization Notes Care Provider Fa cility NEGATED: Highlighted row has not occurred!02-26-2023 SARS-CoV-2 mRNA (tozinameran 5y-11y) vaccine Nancy Wilson [facility] Payers Date Payer Category Payer Private Health Insurance [id number] 2023 Unknown 1990 Unknown [id number] 1990 Unknown [id number] 93 1990 Unknown [id number] 47 1990 Unknown [id number] 27 1990 Unknown [id number] [id number] 27 1990 Unknown [id number] [id number] 27 1990 Unknown [id number] [id number] 27 1990 Unknown [id number] [id number] 27 1990 Unknown [id number] [id number] 27 1958 Self-pay 1958 Unknown [id number] Private Health Insurance [id number] Unknown Unknown [id number] Unknown [facility] [id number] Social History Date Type Detail Facility Unknown if ever smoked [facility] Other Sex Assigned At [facility] Tobacco Current vaping o r e-cigarette use Smokeless Tobacco Use:. Vaping [facility] Tobacco smoking status No Smoking Status Entered [facility] Start: 05-17-2024 Tobacco smoking status NHIS Never smoked tobacco (finding) [facility] Start: 1990 Sex Assigned At Male F [facility] Clinical Notes 04-24-2022 to 06-06-2023 Note Date & Type Note Facility 06-06-2023 Evaluation + Plan note Diagnostic Tests PendingChlam/GC/Trich,GRISELDA 06/06/23 [facility] 02-26-2023 Evaluation + Plan note Diagnostic Tests PendingRPR with Conf Rfx 02/26/23Chlam/GC/Trich,GRISELDA 02/26/23 [facility] 04-24-2022 Evaluation note Encounter Date Diagnosis Assessment Notes Apr, Contact dermatitis, unspecified contact dermatitis type, unspecified trigger (ICD-10 - L25.9) Drink plenty fluids, get plenty of rest. Take the prednisone as prescribed until gone. You may take Benadryl as needed for itching. Apply calamine lotion to the rash for comfort. Follow-up with your family physician if no improvement in 2 to 3 days. Apr, Other Contact dermatitis home care material was printed [facility] Other Evaluation noteNort Tamr Other Evaluation note* Diagnosis Onset Date Resolution Status Low back strain acute [facility] Work Phone: Evaluation note* Diagnosis Onset Date Resolution Status Low back strain acute Low back strain acute [facility] Work Phone: History general Narrative - ReportedNort Tamr Other Hishhll general Narrative - Reported* Type Description Date Medical History hypertension Surgical History knee surgery 2019 Hospitalization History see above [facility] Other Hospital course Narrative No data available for this section [facility] No data available for this section [facility] No data available for this section [facility] Summary Purpose Family History No Family History Records Found Relationship Condition Age at Onset Recorded Date/T maxime father Diabetes mellitus Unknown Advance Directives No Advanced Directives Records Found Advance Directive Response Recorded Date/ Time Advance Directives No May 17 3:27pm Chief Complaint and Reason for Visit Chief Complaint lower back pain Reason for Visit Low back strain Chief Complaint lower back pain lower back pain Reason for Visit Low back strain Low back strain Additional Source Comments (unrecognized sect ion and content) No Status Records FoundNo Status Records FoundNo Status Records Found INFORMATION SOURCE (unrecogn ized section and content) DATE CREATED AUTHOR 03/09/2020 [facility] DATE CREATED AUTHOR AUTHOR'S ORGANIZ ATION 04/13/2020 [facility] DATE CREATED AUTHOR AUTHOR'S ORGANIZ ATION 05/22/2024 [facility] REASON FOR VISIT (unrecogniz ed section and content) RASH Patient Care team informatio n (unrecognized section and content) Team Status: Active Member Role Status Dates Amanda Hogue MD Primary Care Provider Active Team Status: Inactive Member Role Status Dates Amanda Hogue MD Primary Care Provider Active S tart: May 17, 2024 End: May 17, 2024 Giulia Fried APRN Attending Provider Active Start: May 17, 2024 End: May 17, 2024 Team Status: Inactive Member Role Status Dates Amanda Hogue MD Primary Care Provider Active S tart: May 19, 2024 End: May 19, 2024 Nicolasa Dodd APRN Attending Provider Active S tart: May 19, 2024 End: May 19, 2024 Goals (unrecognized section and content) Goals may be documented in a n alternate section FOR RECORDS PERTAINING TO PATIENTS WHO ARE OR HAVE BEEN ENROLLED IN A CHEMICAL DEPENDENCY/SUBSTANCEABUSE PROGRAM, SOME INFORMATION MAY BE OMITTED. This clinical summary was aggregated from multiple sources. Caution should be exercised in using it in the provision of clinical care. This summary normalizes information from multiple sources, and as a consequence, information in this document may materially change the coding, format and clinical context of patient data. In addition, data may be omitted in some cases. CLINICAL DECISIONS SHOULD BE BASED ON THE PRIMARY CLINICAL RECORDS. [facility] provides no warranty or guarantee of the accuracy or completeness of information in this document.
--- NOTE | 2024-09-21 18:57 | CT_ITS ---
The [address] [address] Patient Name: JAMAL NICOLE MRN: [id number] date: 1990 Sex: M Assigned Patient Location: ER Current Patient Location: ER Accession/Order Number: [id number] Exam Date: 09/21/2024 19:12 Report Date: 09/21/2024 19:40 At the request of: ANDRZEJ BOLAÑOS Procedure: CT abdomen pelvis wo con EXAM: CT scan of the abdomen and pelvis without contrast. Dose reduction technique used: Automated exposure control and/or adjustment of the mA and/or kV according to patient size and/or use of iterative reconstruction technique. REASON FOR EXAM: Hematuria COMPARISON: None FINDINGS: Possible rectal wall thickening. Small fat-containing periumbilical hernia. Small fat-containing left inguinal hernia. L5-S1 degenerative disc changes. Diffuse hepatic steatosis. Retroaortic left renal vein. No renal, ureteral or bladder calculi. No hydronephrosis. Normal appendix. No free fluid in the abdomen or pelvis. No free intraperitoneal air. No dilated or thickened loops of small bowel or colon. Liver, pancreas, spleen, bilateral kidneys, and bilateral adrenal glands are otherwise unremarkable within the limitations of noncontrast CT. No lymphadenopathy in the abdomen or pelvis. Remainder unremarkable. CT/CT abdomen pelvis wo con IMPRESSION: 1. Possible rectal wall thickening, correlate clinically for any evidence of proctitis. 2. Otherwise, no acute abnormalities in the abdomen or pelvis. 3. Diffuse hepatic steatosis. Electronically authenticated by: SHANICE CALLE Date: 09/21/2024 19:40
--- NOTE | 2024-09-21 18:58 | ED.GENADUL1 ---
HPI HPI - General Adult General Chief complaint: Urogenital-Male Stated complaint: BLOOD IN URINE Time Seen by Provider: 09/21/24 18:45 Source: patient Mode of arrival: walk-in History of Present Illness HPI narrative: Patient is a 34-year-old male who presents to the emergency department for the evaluation of hematuria that began today. He reports minimal discomfort in the right abdomen with no significant flank pain or new back pain. No fevers or vomiting. No medications taken prior to arrival. He is able to pass urine without difficulty. Related Data Home Medications ?Medication ?Instructions ?Recorded ?Confirmed caffeine 100 mg tablet 100 mg PO DAILY 09/21/24 09/21/24 magnesium 200 mg tablet 200 mg PO DAILY 09/21/24 09/21/24 vit D3 50 mcg-vitamin K1 500 cap PO 09/21/24 mcg-MK4 1,500 mcg-MK7 180 mcg capsule (K-Right) Previous Rx's ?Medication ?Instructions ?Recorded ciprofloxacin HCl 500 mg tablet 500 mg PO BID 5 days #10 tabs 09/21/24 (Cipro) Allergies Allergy/AdvReac Type Severity Reaction Status Date / Time No Known Drug Allergies Allergy Verified 09/21/24 18:41 Opioid HPI Opioid Management Most Recent Opioid Data: Last Pain Scale 8 08/04/23 22:20 08/04/23 Review of Systems ROS Constitutional Denies: fever or chills Ears, nose, mouth, and throat Denies: throat pain Respiratory Denies: shortness of breath Gastrointestinal Denies: nausea or vomiting Musculoskeletal Denies: back pain or neck pain Integumentary/Breast Denies: rash Neurological Denies: numbness in extremities or weakness in extremities Hematologic/Lymphatic Denies: easy bruising or easy bleeding PFSH PFSH Social History Smoking status: Current every day smoker Little interest or pleasure in doing things: not at all Feeling down, depressed, or hopeless: not at all Exam Narrative Exam Narrative: Gen.: Awake, alert, in no distress Head: Normocephalic, atraumatic ENT: Moist mucous membranes Respiratory: No respiratory distress Abdomen: Abdomen is soft, nontender. No guarding or rebound. No flank tenderness Extremities: Moves extremities equally Psych: Normal mood and affect Neuro: No focal neuro deficit Skin: Warm, dry, intact Constitutional Vital Signs, click to edit/add: Last Vital Signs Temp 98.4 F 09/21/24 18:45 Pulse 86 09/21/24 18:45 Resp 16 09/21/24 18:45 BP 180/100 H 09/21/24 18:45 Pulse Ox 97 09/21/24 18:45 O2 Del Method Room Air 09/21/24 18:45 Course Vital Signs Vital signs: Vital Signs Temperature 98.4 F 09/21/24 18:45 Pulse Rate 86 09/21/24 18:45 Respiratory Rate 16 09/21/24 18:45 Blood Pressure 180/100 H 09/21/24 18:45 Pulse Oximetry 97 09/21/24 18:45 Oxygen Delivery Method Room Air 09/21/24 18:45 Temperature 98.4 F 09/21/24 18:45 Pulse Rate 86 09/21/24 18:45 Respiratory Rate 16 09/21/24 18:45 Blood Pressure 180/100 H 09/21/24 18:45 Pulse Oximetry 97 09/21/24 18:45 Oxygen Delivery Method Room Air 09/21/24 18:45 Medical Decision Making MDM Narrative Medical decision making narrative: Patient declined pain medication, he was sent for CT of the abdomen and pelvis without contrast which the radiologist does not see any acute abnormalities other than possible mild rectal wall thickening. Patient does not have any GI complaints, rectal bleeding or diarrhea. I do not feel this is relevant to his presentation tonight. Urine specimen shows hematuria although the patient is able to urinate without difficulty and has no clotting. CT does not show any kidney stones or other pathology. He will need to follow-up with urology for possible cystoscopy. Return to the ER if symptoms change or worsen. Patient given ciprofloxacin due to gross hematuria in case his symptoms do represent an early cystitis. SUPERVISED APC VISIT, PHYSICIAN ATTESTATION: Based on the medical record the care appears appropriate. ? Medical Records Medical records reviewed: Yes I reviewed the patient's medical records Lab Data Lab results reviewed: Yes I reviewed the patient's lab results Labs: Lab Results 09/21/24 09/21/24 Range/Units 19:04 20:06 WBC 7.3 (4.0-11.0) 10^3/uL RBC 5.38 (4.70-6.10) 10^6/uL Hgb 16.3 (14.0-18.0) g/dL Hct 46.7 (42.0-54.0) % MCV 86.8 (80.0-94.0) fL MCH 30.3 (25.9-34.0) pg MCHC 34.9 (29.9-35.2) g/dL RDW 12.0 (11.0-15.0) % Plt Count 233 (150-450) 10^3/uL MPV 10.2 (9.5-13.5) fL Neut % (Auto) 53.9 (43.0-75.0) % Lymph % (Auto) 27.9 (20.5-60.0) % [place] % (Auto) 10.7 (1.7-12.0) % Eos % (Auto) 6.6 (0.9-7.0) % Baso % (Auto) 0.8 (0.2-2.0) % Neut # (Auto) 3.9 (1.4-6.5) 10^3/uL Lymph # (Auto) 2.0 (1.2-3.8) 10^3/uL [place] # (Auto) 0.8 (0.3-0.8) 10^3/uL Eos # (Auto) 0.5 (0.0-0.7) 10^3/uL Baso # (Auto) 0.1 (0.0-0.1) 10^3/uL Abs Immat Gran (auto) 0.01 (0.00-0.03) 10^3/uL Imm/Tot Granulo (auto) 0.1 (0.0-0.5) % PT 10.5 (9.0-11.6) sec INR 0.99 Sodium 139 (136-145) mmol/L Potassium 3.4 L (3.5-5.1) mmol/L Chloride 101 (98-107) mmol/L Carbon Dioxide 27.3 (21.0-32.0) mmol/L Anion Gap 14.1 BUN 15.0 (7.0-18.0) mg/dL Creatinine 1.05 (0.70-1.30) mg/dL Est GFR ( Amer) >60 (>=60 mL/min/1.73m^2) Est GFR (Non-Af Amer) >60 (>=60 mL/min/1.73m^2) BUN/Creatinine Ratio 14.3 Glucose 109 H (74-106) mg/dL Lactate 1.1 (0.4-2.0) mmol/L Calcium 9.2 (8.5-10.1) mg/dL Total Bilirubin 0.7 (0.2-1.0) mg/dL AST 29 (15-37) U/L ALT 67 H (16-63) U/L Alkaline Phosphatase 142 H (46-116) U/L Total Protein 7.6 (6.4-8.2) g/dL Albumin 3.8 (3.4-5.0) g/dL Globulin 3.8 g/dL Albumin/Globulin Ratio 1.0 Urine Color Lt. yellow (YELLOW) Urine Clarity Clear (CLEAR) Urine pH 6.5 (5.0-9.0) Ur Specific [place] 1.020 (1.005-1.025) Urine Protein 30 A (NEG/TRACE) mg/dL Urine Glucose (UA) Negative (NEGATIVE) mg/dL Urine Ketones Negative (NEGATIVE) mg/dL Urine Occult Blood Large A (NEGATIVE) Urine Nitrite Negative (NEGATIVE) Urine Bilirubin Negative (NEGATIVE) Urine Urobilinogen 0.2 (0.2-1.0) EU/dL Ur Leukocyte Esterase Negative (NEGATIVE) Urine RBC 20-50 A (0-2) #/HPF Urine WBC None seen (NONE SEEN) #/HPF Ur Squamous Epith Cells None seen (NONE/RARE) #/LPF Urine Crystals None seen (None Seen) #/HPF Urine Bacteria None seen (NONE SEEN) #/HPF Urine Casts None seen (NONE SEEN) #/LPF Urine Mucus None seen (NONE SEEN) Ur Culture Indicated? No Imaging Data CT scan - abdomen: Attestation: I have reviewed the pertinent imaging results. Radiologist's impression: ITS Impressions Abdomen/Pelvis CT 09/21/24 18:57 IMPRESSION: 1. Possible rectal wall thickening, correlate clinically for any evidence of proctitis. 2. Otherwise, no acute abnormalities in the abdomen or pelvis. 3. Diffuse hepatic steatosis. Electronically authenticated by: SHANICE CALLE Date: 09/21/2024 19:40 Discharge Plan Discharge Chief Complaint: Urogenital-Male Clinical Impression: Hematuria Patient Disposition: Home, Self-Care Time of Disposition Decision: 20:34 Condition: Good Prescriptions / Home Meds: New ciprofloxacin HCl [Cipro] 500 mg tablet 500 mg PO BID 5 Days Qty: 10 0RF No Action magnesium 200 mg tablet 200 mg PO DAILY Patient Comments: uncertain of correct dose. K-Right 50-500-1,500 mcg capsule PO caffeine 100 mg tablet 100 mg PO DAILY Print Language: Tamazight Instructions: Hematuria (ED) Referrals: MARIA DOLORES BROWN [Primary Care Provider] - 1 week Avery Buitrago MD [Physician] - As soon as possible Discharge Date/Time: 09/21/24 20:49
[2024-09-21 19:10] LABS: Basophils Absolute Auto 0.1 10^3/uL (0.0-0.1); Basophils Percent Auto 0.8 % (0.2-2.0); Eosinophils Absolute Auto 0.5 10^3/uL (0.0-0.7); Eosinophils Percent Auto 6.6 % (0.9-7.0); Hematocrit 46.7 % (42.0-54.0); Hemoglobin 16.3 g/dL (14.0-18.0); Immature Granulocytes Abs Auto 0.01 10^3/uL (0.00-0.03); Immature Granulocytes Pct Auto 0.1 % (0.0-0.5); Lymphocytes Percent Auto 27.9 % (20.5-60.0); Mean Corpuscular HGB Conc 34.9 g/dL (29.9-35.2); Mean Corpuscular Hemoglobin 30.3 pg (25.9-34.0); Mean Corpuscular Volume 86.8 fL (80.0-94.0); Mean Platelet Volume 10.2 fL (9.5-13.5); Monocytes Absolute Auto 0.8 10^3/uL (0.3-0.8); Monocytes Percent Auto 10.7 % (1.7-12.0); Neutrophils Absolute Auto 3.9 10^3/uL (1.4-6.5); Neutrophils Percent Auto 53.9 % (43.0-75.0); Platelet Count 233 10^3/uL (150-450); Red Blood Count 5.38 10^6/uL (4.70-6.10); White Blood Count 7.3 10^3/uL (4.0-11.0)
--- NOTE | 2024-09-21 19:11 | PC.NURSE ---
pt states right flank ache that has been going on for a couple months. started having blood in urine today
[2024-09-21 19:24] LABS: INR 0.99; Prothrombin Time 10.5 sec (9.0-11.6)
[2024-09-21 19:30] LABS: Lactate/Lactic Acid 1.1 mmol/L (0.4-2.0)
[2024-09-21] MEDS: 0.9 % SODIUM CHLORIDE 500 ML IV (19:32)
[2024-09-21 19:36] LABS: Alanine Aminotransferase 67 U/L (16-63); Albumin Level 3.8 g/dL (3.4-5.0); Alkaline Phosphatase 142 U/L (46-116); Anion Gap 14.1; Aspartate Amino Transferase 29 U/L (15-37); BUN Creatinine Ratio 14.3; Bilirubin Total 0.7 mg/dL (0.2-1.0); Calcium 9.2 mg/dL (8.5-10.1); Carbon Dioxide 27.3 mmol/L (21.0-32.0); Chloride 101 mmol/L (98-107); Estimated GFR (African America >60 (>=60 mL/min/1.73m^2); Estimated GFR (Non-African Ame >60 (>=60 mL/min/1.73m^2); Globulin 3.8 g/dL; Glucose 109 mg/dL (74-106); Potassium 3.4 mmol/L (3.5-5.1); Sodium 139 mmol/L (136-145); Total Protein 7.6 g/dL (6.4-8.2)
[2024-09-21 20:12] LABS: Bilirubin Urine NEGATIVE (NEGATIVE); Blood Urine LARGE (NEGATIVE); Clarity Urine CLEAR (CLEAR); Color Urine LT. YELLOW (YELLOW); Glucose Urine UA NEGATIVE (NEGATIVE); Ketones Urine NEGATIVE (NEGATIVE); Leukocyte Esterase Urine NEGATIVE (NEGATIVE); Nitrite Urine NEGATIVE (NEGATIVE); Protein Urine 30 mg/dL (NEG/TRACE); Urobilinogen Urine 0.2 EU/dL (0.2-1.0); pH Urine 6.5 (5.0-9.0)
[2024-09-21 20:16] LABS: Urine Microscopic Indicated YES
[2024-09-21 20:20] LABS: Bacteria Urine NONE SEEN #/HPF (NONE SEEN); Cast Seen? NONE SEEN #/LPF (NONE SEEN); Crystals Seen? None Seen #/HPF (None Seen); Mucus Urine NONE SEEN (NONE SEEN); RBC Urine 20-50 #/HPF (0-2); Squamous Epithelial Cell Urine NONE SEEN #/LPF (NONE/RARE); Urine Culture Indicated NO; WBC Urine NONE SEEN #/HPF (NONE SEEN)
[2024-09-21] MEDS: CIPROFLOXACIN HCL 500 MG TABLET PO (20:46)
== END 2024-09-21 20:49 | disposition home or self-care (01) ==
PROVIDERS: Physician Assistant; Emergency Provider Emergency Medicine; PCP Nurse Practitioner
DX: R31.9 Hematuria, unspecified (principal); F17.200 Nicotine dependence, unspecified, uncomplicated
CPT/HCPCS: 36415; 74176; 80053; 81001; 83605; 85025; 85610; 99285

== ENCOUNTER 2025-09-05 12:22 | Observation (INO) | payer OTHER, SELFPAY ==
[2025-09-05] VITALS (31 sets, daily range): BP systolic 150–218; BP diastolic 96–151; PULSE 68–98; TEMP 36.6–37.1; O2SAT 94–97; BMI 45.4; BMI 46.2
--- NOTE | 2025-09-05 12:37 | ECG_ITS ---
The [facility] Test Date: 2025-09-05 Pat Name: JAMAL NICOLE Department: Room: - Gender: Male Hemodialysis Technician: : 1990 Requested By: [id number] Order Number: [id number] Reading MD: GIANA AMEZCUA M.D. Measurements Intervals Curtis Rate: 79 P: 51 NJ: 136 QRS: 104 QRSD: 108 T: 12 QT: 388 QTc: 423 Interpretive Statements 1100 Sinus rhythm 4068 Nonspecific Twave abnormality 7100 Abnormal right axis deviation Abnormal ECG No previous ECG available for comparison Electronically Signed On 09-05-2025 19:01:21 EST by GIANA AMEZCUA M.D.
--- NOTE | 2025-09-05 12:45 | ED.DIZZY1 ---
HPI - Dizziness General Chief Complaint: Dizziness Stated Complaint: NUBIA IS OFF DIZZINESS Time Seen by Provider: 09/05/25 12:32 Source: patient Mode of arrival: Wheelchair Limitations: no limitations History of Present Illness HPI Narrative: The patient is a 35-year-old male presenting to the ER with a last known well at of more than 23 hours ago, the patient woke up yesterday at 10 AM with double vision and vertigo sensation, patient mentioned that he is not able to ambulate because of that although he does not have any specific upper or lower extremity weakness but he mentioned that his symptoms are severe and he was not able to walk in his room with no assistance The patient does have a history of hypertension but he has not been taking medication because he did not want the side effect of the blood pressure medication The patient denies any headache nausea vomiting, he does not have any double vision at the moment The patient denies any other concerns Related Data Home Medications ?Medication ?Instructions ?Recorded ?Confirmed caffeine 100 mg tablet 100 mg PO DAILY 09/21/24 09/21/24 magnesium 200 mg tablet 200 mg PO DAILY 09/21/24 09/21/24 vit D3 50 mcg-vitamin K1 500 cap PO 09/21/24 mcg-MK4 1,500 mcg-MK7 180 mcg capsule (K-Right) Previous Rx's ?Medication ?Instructions ?Recorded ciprofloxacin HCl 500 mg tablet 500 mg PO BID 5 days #10 tabs 09/21/24 (Cipro) Allergies Allergy/AdvReac Type Severity Reaction Status Date / Time No Known Drug Allergies Allergy Verified 09/21/24 18:41 Review of Systems ROS Status of ROS 10 or more systems reviewed and unremarkable except as noted in history and below PFSH PFS Social History Smoking status: Current every day smoker Little interest or pleasure in doing things: not at all Feeling down, depressed, or hopeless: not at all Exam Narrative Exam Narrative: Nurses notes and vital signs reviewed and patient is not hypoxic. General: Well-appearing and in no apparent distress. Skin: Warm, dry, no pallor noted. No rash. Head: Normocephalic, atraumatic. Neck: Supple, non-tender. Eye: Was noted that the patient does not have any lateral nystagmus but he had vertical nystagmus Cardiovascular: Regular Rate and Rhythm without murmur, gallop or rub. Respiratory: No accessory muscle use or respiratory distress. Lungs are clear to auscultation, no wheezing, rales or rhonchi Chest Wall: no tenderness Back: No midline thoracic or lumbar vertebral tenderness. No CVA tenderness Musculoskeletal: normal ROM, no calf or popliteal tenderness, no lower extremity edema/swelling GI: Abdomen is soft, non-distended. Normal bowel sounds. No masses appreciated. No tenderness to palpation. No rebound, guarding, or rigidity noted. Neurological: A&O x4. No cranial nerve dysfunction observedMoves all extremities. Sensation intact. Psychiatric: Cooperative and interactive. Normal mood and affect. Constitutional Vital Signs, click to edit/add: Last Vital Signs Temp 97.8 F 09/05/25 12:27 Pulse 86 09/05/25 13:51 Resp 22 H 09/05/25 13:51 BP 191/123 H 09/05/25 13:30 Pulse Ox 97 09/05/25 12:36 O2 Del Method Room Air 09/05/25 12:27 Course Vital Signs Vital signs: Vital Signs Temperature 97.8 F 09/05/25 12:27 Pulse Rate 83 09/05/25 12:27 Respiratory Rate 18 09/05/25 12:27 Blood Pressure 195/115 H 09/05/25 12:27 Pulse Oximetry 97 09/05/25 12:27 Oxygen Delivery Method Room Air 09/05/25 12:27 Temperature 97.8 F 09/05/25 12:27 Pulse Rate 86 09/05/25 13:51 Respiratory Rate 22 H 09/05/25 13:51 Blood Pressure 191/123 H 09/05/25 13:30 Pulse Oximetry 97 09/05/25 12:36 Oxygen Delivery Method Room Air 09/05/25 12:27 MDM - Dizziness MDM Narrative Medical decision making narrative: The patient EKG showing sinus rhythm with a heart rate [address] elevation some nonspecific T changes The patient presentation was highly concerning for central vertigo especially with his blood pressure being above 212 systolic upon arrival more than 123 diastolic, in addition to the double vision that he had yesterday and the fact that he had vertical nystagmus CT head showed no acute pathology The patient case was discussed with teleneurology for stroke possibility and Dr. Claus turk. Recommended the patient just started on aspirin 324 mg. Keeping the blood pressure elevated for now and no Plavix And the CT angio of the neck was obtained and the neurologist reviewed it mentioned that the patient will need to be admitted for MRI with and without contrast with the comment coronal DWI The patient case discussed with and he agreed with above-mentioned plan Lab Data Labs: Lab Results 09/05/25 Range/Units 12:55 WBC 4.7 (4.0-11.0) 10^3/uL RBC 5.37 (4.70-6.10) 10^6/uL Hgb 16.2 (14.0-18.0) g/dL Hct 46.0 (42.0-54.0) % MCV 85.7 (80.0-94.0) fL MCH 30.2 (25.9-34.0) pg MCHC 35.2 (29.9-35.2) g/dL RDW 11.9 (11.0-15.0) % Plt Count 219 (150-450) 10^3/uL MPV 10.7 (9.5-13.5) fL Neut % (Auto) 52.0 (43.0-75.0) % Lymph % (Auto) 30.0 (20.5-60.0) % [place] % (Auto) 14.2 H (1.7-12.0) % Eos % (Auto) 3.2 (0.9-7.0) % Baso % (Auto) 0.4 (0.2-2.0) % Neut # (Auto) 2.5 (1.4-6.5) 10^3/uL Lymph # (Auto) 1.4 (1.2-3.8) 10^3/uL [place] # (Auto) 0.7 (0.3-0.8) 10^3/uL Eos # (Auto) 0.2 (0.0-0.7) 10^3/uL Baso # (Auto) 0.0 (0.0-0.1) 10^3/uL Abs Immat Gran (auto) 0.01 (0.00-0.03) 10^3/uL Imm/Tot Granulo (auto) 0.2 (0.0-0.5) % Sodium 137 (136-145) mmol/L Potassium 3.9 (3.5-5.1) mmol/L Chloride 102 (98-107) mmol/L Carbon Dioxide 29.8 (21.0-32.0) mmol/L Anion Gap 9.1 BUN 10.0 (7.0-18.0) mg/dL Creatinine 0.72 (0.70-1.30) mg/dL Est GFR ( Amer) >60 (>=60 mL/min/1.73m^2) Est GFR (Non-Af Amer) >60 (>=60 mL/min/1.73m^2) BUN/Creatinine Ratio 13.9 Glucose 191 H (74-106) mg/dL Calcium 8.5 (8.5-10.1) mg/dL Total Bilirubin 0.5 (0.2-1.0) mg/dL AST 24 (15-37) U/L ALT 77 H (16-63) U/L Alkaline Phosphatase 139 H (46-116) U/L Troponin I High Sens 11.7 (4.0-76.1) pg/mL Total Protein 7.2 (6.4-8.2) g/dL Albumin 3.7 (3.4-5.0) g/dL Globulin 3.5 g/dL Albumin/Globulin Ratio 1.1 Discharge Plan Discharge Chief Complaint: Dizziness Clinical Impression: Vertigo, central, Hypertensive emergency, Stroke-like symptom Prescriptions / Home Meds: No Action magnesium 200 mg tablet 200 mg PO DAILY Patient Comments: uncertain of correct dose. K-Right 50-500-1,500 mcg capsule PO caffeine 100 mg tablet 100 mg PO DAILY ciprofloxacin HCl [Cipro] 500 mg tablet 500 mg PO BID 5 Days Qty: 10 0RF Print Language: Mohawk Referrals: MARIA DOLORES BROWN [Primary Care Provider, PRINTED CIRCUIT DESIGNER] - 1 week
--- NOTE | 2025-09-05 12:47 | CT_ITS ---
The [address] [address] Patient Name: JAMAL NICOLE MRN: [id number] date: 1990 Sex: M Assigned Patient Location: ER Current Patient Location: ER Accession/Order Number: [id number] Exam Date: 09/05/2025 12:45 Report Date: 09/05/2025 12:59 At the request of: MAREK MARROQUIN MD Procedure: CT stroke head/brain wo con CT stroke head/brain wo con 09/05/2025 12:47 PM SIGNS AND SYMPTOMS: ^dizziness with htn emergency TECHNIQUE:Multi-detector CT axial slices of the brain were obtained without IV contrast. CT was performed with one or more of the following dose reduction techniques: Automated exposure control, adjustment of the mA and/or kV according to patient size, or use of iterative reconstruction technique. COMPARISON: None. FINDINGS: There is no shift of the midline structures, acute intracranial bleeding, mass effects, or evidence of acute ischemia. Atherosclerotic changes are noted in the V4 segments of the vertebral arteries and intracranial segments of the internal carotid arteries. The ventricular system is normal in size. The brainstem and the cerebellum are unremarkable. The visualized intraorbital contents, the visualized paranasal sinuses, and the infratemporal soft tissues show no acute abnormality. The osseous structures in the skull base and the calvarium show no abnormality. CT/CT stroke head/brain wo con IMPRESSION: No acute intracranial pathology. Impression dictated by: Simon Dickinson M.D. 09/05/2025 12:59 PM Dictation Location: [place] [address] Electronically authenticated by: [id number] Y Date: 09/05/2025 12:59
--- OUTSIDE RECORDS SUMMARY | 2025-09-05 13:06 | XMS_ITS | CCD ---
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 Results: Date Result Name Value Ref Range 02/20/2024 12:31 PSA Scrn Tot. 0.5 ng/mL (0.1 - 3.5) Patient informed and voiced understanding.[facility] Ambulatory Visit Summaryon 70-32-0439Ltgmpqthgs Visit Summary EMANUEL PATEL :1990 Visit Date:02/20/2024 [...] Pharmacy Information [facility]: [address] [place], [place] [id number] [phone] Allergies Suprax (Unknown) Problems Ongoing - Any [...] you for choosing us for your care. [facility] HospitalCHEMISTRYOrdered By: Joni Goldman on 29-65-7073Obgrhlxk specific Ag [Mass/Vol]0.5 ng/mLNormal0.1 - 3.5 ng/mLRemisol ChemComment on above:Interpretive Data: The concentration of PSA determined by different manufacturers can vary due to differences in assay methods and reagent specificity. Values obtained from different assay methods cannot be used interchangeably. The methodology used for this result was chemiluminescence using [employer] Access Hybritech PSA reagent.Family Medicine Office/Clinic Noteon 40-56-4113Dgjqcl Medicine Office/Clinic NoteHPI Staff Patient presents for acute visit. Respiratory [...] checked for UTI and STD's when he hadthis in the past. pt refuses to be treated for hypertension. but is asking about a PET scan to makesure he doesn't have cancer. discussed that you can't just order a t PET scan. there is a process for that. Ordered: azithromycin, = 1 packet(s), Oral, As Directed, as directed on package labeling, X 5 day(s), # 6 tab(s), Refills(s) 0, Pharmacy: [facility], 170.2, cm, 02/20/24 11:57:00 EDT, Height/Length Dosing, 121.1, kg, 02/20/24 11:57:00 EDT, Weight Dosing methylPREDNISolone, = 1 packet(s), Oral, As Directed, as directed on package labeling, X 6 day(s), # 21 tab(s), Refills(s) 0, Pharmacy: [facility], 170.2, cm, 02/20/24 11:57:00 EDT, Height/Length Dosing, 121.1, kg, 02/20/24 11:57:00 EDT, Weight Dosing Lab Specimen Collect [id number] PSA Screen, Total 2. Bilateral otitis media (H66.93: Otitis media, unspecified, bilateral) MAURICE TM and canals red both full of fluid Ordered: azithromycin, = 1 packet(s), Oral, As Directed, as directed on package labeling, X 5 day(s), # 6 tab(s), Refills(s) 0, Pharmacy: [facility], 170.2, cm, 02/20/24 11:57:00 EDT, Height/Length Dosing, 121.1, kg, 02/20/24 11:57:00 EDT, Weight Dosing methylPREDNISolone, = 1 packet(s), Oral, As Directed, as directed on package labeling, X 6 day(s), # 21 tab(s), Refills(s) 0, Pharmacy: [facility], 170.2, cm, 02/20/24 11:57:00 EDT, Height/Length Dosing, 121.1, kg, 02/20/24 11:57:00 EDT, Weight Dosing Lab Specimen Collect 39066 3. Cough (R05.9: Cough, unspecified) pt coughing [...] 11:57:00 EDT, Weight Dosing Lab Specimen Collect 98502 4. BMI 40.0-44.9, adult (Z68.41: Body mass [...] - Not Given Postpone due to refusal [facility] HospitalComment on above:Result Comment: Electronically Signed By: Nancy Blevins.clayton\Date and Time Signed: 02/20/24 12:53 EDTPSA Screen, Totalon 13-10-5026Xqjdrype specific Ag [Mass/Vol]0.5 ng/mLNormal0.1-3.5 [facility] AdministrationComment on above:Result Comment: The concentration of PSA determined by different manufacturers can vary due to differences in assay methods and reagent specificity. Values obtained from different assay methods cannot be used interchangeably. The methodology used for this result was chemiluminescence using [employer]'s [place] Hybritech PSA reagent.Performed By: #### [id number] ####[facility] [address] [place], [place] [address]Dlheemhp Letteron 93-66-8206Cyljlzyc Letter February 20, 2024 EMANUEL PATEL [address] [place] [id number] : 1990 To Whom It May Concern, Please excuse above patient from work. Date of Illness: From: 02/20/2024 To: 02/20/2024 May Return to Work On: 02/23/2024 Sincerely, GIO Carias [address] [address] TpfcvqEfttjyVeterans Health AdministrationURINALYSISOrdered By: Lawrence Damon on 60-72-3137Tfyfnxln LM Ql (Urine sed)Trace /HPFNormalTrace/HPFFT UA Auto SSBilirubin Ql (U)Negative (06/06/23 12:40 PM)NormalNegativeFT UA Auto SSClarity (U)Clear (06/06/23 12:40 PM)NormalClearFTM UA Auto SSColor (U)Yellow (06/06/23 12:40 PM)NormalYellowFT UA Auto SSEpithelial cells.squamous LM.HPF (Urine sed) [#/Area]0-2 /HPFNormal0-2/HPFOK [facility] UA Auto SSGlucose Test strip (U) [Mass/Vol]Negative (06/06/23 12:40 PM)NormalNegativeOK [facility] UA Auto SSHemoglobin Ql (U)Negative (06/06/23 12:40 PM)NormalNegativeOK [facility] [place] UA Auto SSKetones (U) [Mass/Vol]Negative (06/06/23 12:40 PM)NormalNegativeOK [facility] UA Auto SSLithium.plasma/[place].RBC (Bld) [Mass ratio]0-3 /HPFNormal0-3/HPFOK [facility] UA Auto SSNitrite Ql (U)Negative (06/06/23 12:40 PM)NormalNegativeOK [facility] UA Auto SSpH (U)6.0 *NA* (06/06/23 12:40 PM)Invalid Interpretation Code5.0 - 9.0OK [facility] UA Auto SSProtein (U) [Mass/Vol]Negative (06/06/23 12:40 PM)NormalNegativeOK [facility] UA Auto SSSpecific gravity (U) [Rel density]<=1.005 *NA* (06/06/23 12:40 PM)Invalid Interpretation Code1.005 - 1.030OK [facility] UA Auto SSUA Spec DescRandom Urine (06/06/23 12:40 PM)NormalOK [facility] UA Auto SSUrobilinogen Qn (U)0.7743343 {Dariusz'U}/dLNormal0.0 - 1.0 EU/dLOK [facility] UA Auto SSWBC Auto Ql (U)Negative (06/06/23 12:40 PM)NormalNegativeOK [facility] UA Auto SSWBC LM.HPF (Urine sed) [#/Area]0- 5 /HPFNormal0-5/HPFOK [facility] UA Auto SSCOVID Quick Testingon 90-91-1156AlpvawDtopwugi [employer] Other Operative Reporton 71-14-8614Bletnbveu ReportMR#: [id number] S [facility] Pt. Name: Emanuel Patel Room #: 0C Discharge Date: Birthdate: 1990 OPERATIVE REPORT DATE OF SURGERY: 04/04/2020 SURGEON: Kristie Mendoza M.D. ASSISTANTS: 1. Fidencio Painting MD. [...] awakened from anesthesia, extubated, moved back to stretcher, and taken to PACU in stable condition. [...] end of the case. Electronically Signed by: Kristie Mendoza M.D. 04/07/2020 05:02 P Kristie Mendoza M.D. I was present for the serrano and critical portions and I was otherwise immediately available to assist. Date Dict: 04/04/2020/02:09 Fermin/Fidencio Painting MD Date Trans: 04/05/2020 02:19 Camilo/erick DN_JN:[id number] [facility] GLUCOSE LAB on 31-04-2254Iivcrfc [Mass/Vol]114 mg/iLQdfp14-078Fef [facility] HospitalComment on above:Performed By: #### [id number] #### [facility] [address]*SARS-CoV-2 COVID-19on 45-47-3816KAKM-COVID-19Not Detected NormalNot DetectedThe [facility] HospitalComment on above:Order Comment: The Aptima SARS-CoV-2 assay is a nucleic acid amplification test intended for the qualitative detection of RNA from SARS-CoV-2 isolated and purified from nasopharyngeal (SAWMILL TALLY CLERK), nasal and oropharyngeal (OP) swab specimens from patients with signs and symptoms of infection who are suspected of COVID-19. Results are for the identification of SARS-CoV-2 RNA. The SARS-CoV-2 RNA is generally detectable in nasopharyngeal and oropharyngeal swabs during the acute phase of infection. The Aptima SARS-CoV-2 Assay on the [employer] Fusion system is intended for use by laboratory personnel specifically instructed and trained in the operation of the [employer] Fusion system. The Aptima SARS-CoV-2 assay is [...] with clinical observations, patient history, and epidemiological information.Performed By: #### [id number] #### [facility] [address]*MRSA/MSSA DNA NASALon 03-27-2020*MRSA/MSSA DNA NASAL Clinical Report: (D) Specimen: NASAL SWAB Collected: 03/27/2020 10:39 Status: Final Last Updated: 03/27/2020 15:48 MSSA DNA (Final) Negative MRSA DNA (Final) NegativeNoAdena Fayette Medical CenterComment on above:Performed By: #### [id number] #### [facility] [address] [facility] [place] [address], USAAPTTon 66-05-8124qFYY Coag (Bld) [Time]26.5 sNormal 25.0-35.0The [facility] HospitalComment on above:Result Comment: ALL RESULTS MUST BE INTERPRETED WITH RESPECT TO BLOOD DRAWING ARTIFACT OR DILUTION ERROR OF ANTICOAGULANT AT THE TIME OF SAMPLING. THE APTT SHOULD NOT BE USED TO MONITOR UNFRACTIONATED HEPARIN THERAPY, THIS LABORATORY NO LONGER HAS AN ESTABLISHED THERAPEUTIC RANGE BASED ON THE APTT. IT IS RECOMMENDED THAT THE UFH - HEPARIN ASSAY (ANTI-XA ACTIVITY) BE USED FOR THIS PURPOSE.Performed By: #### [id number], [id number] #### [facility] [address] [facility] [place] [address], USABASIC METABOLIC PANELon 22-36-3592Snufqoo [Mass/Vol]9.0 mg/dLNormal8.6-10.3The [facility] HospitalComment on above: Performed By: #### 06000 #### [facility] [address] [facility] [place] [address], USAChloride [Moles/Vol]102 mmol/VJklubh01-864Vqs [facility] HospitalComment on above:Performed By: #### 53056 #### [facility] [address] [facility] [place] [address], USACO2 [Moles/Vol]26 mmol/AYdyhoq00-35Awd [facility] HospitalComment on above:Performed By: #### [id number] #### [facility] [address] [place] [address], USACreatinine [Mass/Vol]0.74 mg/dLNormal0.70-1.30The [facility] HospitalComment on above:Performed By: #### 16146 #### [facility] [address] [place] [address], USAGFR/1.73 sq M predicted among blacks MDRD (S/P/Bld) [Vol rate/Area]mL/min/{1.73_m2}Normal>60The [facility] Comment on above:Performed By: #### 52771 #### [facility] [address] [place] [address], USAGFR/1.73 sq M predicted among non-blacks MDRD (S/P/Bld) [Vol rate/Area]mL/min/{1.73_m2}Normal>60The [facility] Comment on above:Performed By: #### 16735 #### [facility] [address] [place] [address], USAGlucose [Mass/Vol]134 mg/gAZfnq64-487Lex [facility] HospitalComment on above:Performed By: #### 67417 #### [facility] [address] [place] [address], USAPotassium [Moles/Vol]3.7 mmol/LNormal3.5-5.1The [facility] HospitalComment on above:Performed By: #### 74528 #### [facility] [address] [place] [address], USASodium [Moles/Vol]135 mmol/XRyn504-551Agm [facility] HospitalComment on above:Performed By: #### 48432 #### [facility] [address] [place] [address], USAUrea nitrogen [Mass/Vol]16 mg/dLNormal7-25The [facility] HospitalComment on above:Performed By: #### 55575 #### [facility] [address] [place] [address], USACBC W/DIFFon 00-47-5857HKF BASOPHILS0.0 10*3/uLNormal 0.0-0.2The [facility] HospitalComment on above:Performed By: #### 34091 #### [facility] [address] [facility] [place] [address], USAABS IMM GRANS0.0 10*3/uLNormal0.0-0.2The [facility] HospitalComment on above:Performed By: #### 06570 #### [facility] [address] [facility] [place] [address], [facility] HOSPITALABS NEUTROPHILS2.6 10*3/uLNormal1.6-7.6The [facility] HospitalComment on above:Performed By: #### 86333 #### [facility] [address] [facility] [place] [address], [facility] HOSPITALBasophils/100 WBC (Bld)0.6 %Normal0.0-1.0The [facility] HospitalComment on above:Performed By: #### 51772 #### [facility] [address] [facility] [place] [address], [facility] HOSPITALEosinophils (Bld) [#/Vol]0.3 10*3/uLNormal0.0-0.5The [facility] HospitalComment on above:Performed By: #### 36901 #### [facility] [address] [facility] [place] [address], USAEosinophils/100 WBC (Bld)5.7 %Normal0.0-6.0The [facility] HospitalComment on above:Performed By: #### 79920 #### [facility] [address] [facility] [place] [address], USAErythrocyte distribution width (RBC) [Ratio]12.3 %Normal 11.5-15.0The [facility] HospitalComment on above:Performed By: #### 07736 #### [facility] [address] [facility] [place] [address], USAHematocrit (Bld) [Volume fraction]45.9 %Gdsfqv96.0-50.0The [facility] HospitalComment on above:Performed By: #### 63945 #### [facility] [address] [facility] [place] [address], USAHemoglobin (Bld) [Mass/Vol]15.9 g/kTQkxzrb56.0-17.0The [facility] HospitalComment on above:Performed By: #### 46073 #### [facility] [address] [facility] [place] [address], USAIMMATURE GRANS0.4 %Normal0.0-1.0The [facility] HospitalComment on above:Performed By: #### 96929 #### [facility] [address] [facility] [place] [address], USALymphocytes (Bld) [#/Vol]1.4 10*3/uLNormal1.2-4.0The [facility] HospitalComment on above:Performed By: #### 94516 #### [facility] [address] [facility] [place] [address], USALymphocytes/100 WBC (Bld)28.3 %Pjikdq76.0-45.0The [facility] HospitalComment on above:Performed By: #### [id number] #### [facility] [address] [facility] [place] [address], USAMCH (RBC) [Entitic mass]30.1 ewCsafxp08.0-33.0The [facility] HospitalComment on above:Performed By: #### 64243 #### [facility] [address] [facility] [place] [address], USAMCHC (RBC) [Mass/Vol]34.6 g/vQHsevaw37.0-35.0The [facility] HospitalComment on above:Performed By: #### 98235 #### [facility] [address] [place] [address], [facility] HOSPITALMCV (RBC) [Entitic vol]86.8 jMSaepdf11.0-98.0The [facility] HospitalComment on above:Performed By: #### 71610 #### [facility] [address] [facility] [place] [address], USAMonocytes (Bld) [#/Vol]0.7 10*3/uLNormal0.1-1.0The [facility] HospitalComment on above:Performed By: #### 57090 #### [facility] [address] [place] [address], RATSMBVC54.8 %High5.0-12.0The [facility] HospitalComment on above:Performed By: #### 51586 #### [facility] [address] [facility] [place] [address], USANeutrophils/100 WBC (Bld)52.2 %Mhnjaz96.0-72.0The [facility] HospitalComment on above:Performed By: #### 88976 #### [facility] [address] [place] [address], USANucleated RBC/100 WBC (Bld) [Ratio]0 %Normal0-0The [facility] HospitalComment on above:Performed By: #### 72978 #### [facility] [address] [facility] [place] [address], USAPLAT WMX880 10*3/hEBcedgv061-446Bah [facility] HospitalComment on above:Performed By: #### 50419 #### [facility] [address] [facility] [place] [address], USARBC (Bld) [#/Vol]5.29 10*6/uLNormal4.20-5.70The [facility] HospitalComment on above:Performed By: #### 73465 #### [facility] [address] [place] [address], USAWBC (Bld) [#/Vol]5.06 10*3/uLNormal4.00-10.60The [facility] HospitalComment on above:Performed By: #### 63837 #### [facility] [address] [facility] [place] [address], USAPROTHROMBIN TIMEon 67-42-8505YUV Coag (PPP) [Relative time] 0.90 {INR}Low0.91-1.16The [facility] HospitalComment on above: Result Comment: ACCCP RECOMMENDED INR FOR WARFARIN THERAPY ------- CONDITION INR PROPHYLAXIS OF VENOUS THROMBOSIS 2-3 (HIGH-RISK SURGERY) TREATMENT OF VENOUS THROMBOSIS 2-3 TREATMENT OF PULMONARY EMBOLISM 2-3 PREVENTION OF SYSTEMIC EMBOLISM: 2-3 ACUTE MYOCARDIAL INFARCTION TISSUE HEART VALVES VALVULAR HEART DISEASE ATRIAL FIBRILLATION RECURRENT SYSTEMIC EMBOLISM MECHANICAL HEART VALVE 2.5-3.5 FROM: ORAL ANTICOAGULANTS. MECHANISM OF ACTION, CLINICAL EFFECTIVENESS, AND OPTIMAL THERAPEUTIC RANGE. CHEST 1995;108:231S-246S.Performed By: #### 04246, 63488 #### [facility] [address] [facility] [place] [address], USAPT Coag (PPP) [Time]12.1 sLow12.3-14.8The [facility] HospitalComment on above:Result Comment: ALL RESULTS MUST BE INTERPRETED WITH RESPECT TO BLOOD DRAWING ARTIFACT OR DILUTION ERROR OF ANTICOAGULANT AT THE TIME OF SAMPLING.Performed By: #### 43942, 80597 #### [facility] [address] [place] [address], [facility] HOSPITALOUTSIDE IMAGES FOR CONSULTATIONon 58-63-8126LMMSHPM IMAGES FOR CONSULTATIONBethesda North Hospital Department of Radiology [address] [place] [id number] Patient Name: EMANUEL PATEL : 1990 Sex: M Age: Race: NA Pt. Location: OUTP Patient Status: D Ordered Date: 03/16/2020 3:25:00 PM Completed Date: 03/16/2020 03:26 PM Requesting Provider: KRISTIE MENDOZA Attending Provider: KRISTIE MENDOZA Report Copy To: Signs & Symptoms: Left Knee Pain History: MRI Of Left Knee Images are from [facility] Taken on 10/26/19 Requesting physician Kristie Mendoza Comments: Exam: OUTSIDE IMAGES FOR CONSULTATION OUTSIDE IMAGES FOR CONSULTATION 03/16/2020 3:26 PM OUTSIDE STUDY: MRI of the left knee TECHNIQUE: Outside MRI images of the left knee obtained from [facility] dated October 26, 2019. Image review [...] interpretation. Electronically signed: Otilio Evangelista. Transcribed by: [id number], User Resident: Electronically Signed by: OTILIO EVANGELISTA @ 03/22/2020 11:28 AMNMemorial Health System Selby [facility] HospitalXR LSPINE 2_3 VIEWSon 99-09-9540QH LSPINE 2_3 VIEWSEXAM: XR L-SPINE 2-3 VIEWS HISTORY: 30 years [...] Electronically authenticated by: TESS SHAIKH Date: 2020-03-08 01:59[facility]XR TSPINE 2 VIEWSon 86-64-3823ZH TSPINE 2 VIEWSEXAM: XR T-SPINE 2 VIEWS HISTORY: 30 years [...] Electronically authenticated by: TESS SHAIKH Date: 2020-03-08 02:09[facility] RehabilitationXR KNEE LT 4V OR >on 97-74-0625MH KNEE LT 4V OR >Patient: EMANUEL PATEL Exam Date: 09/21/2019 : 1990 Gender:M Ordering : DR LIVE KNUTSON Admission #: [id number] Family : DR MICHAEL HOGUE . Order #: [id number] CLICK HERE TO VIEW EXAM RADIOLOGY REPORT [...] abnormality or significant degenerative changes. Dictated by: Moe Palma M.D. on 09/21/2019 at 22:25 Approved by: Moe Palma M.D. on 09/21/2019 at 22:26[facility] Vital Signs Date TimeVital SignValuePerforming FkeuauridYbnmzlfv98-62-6595 16:13-0400Body grejvx635.18 cmMichael Hogue MD Work Phone: [phone]07-14-2025 16:13-0400 Body mass index (BMI) [Ratio]47.7 kg/m2Michael Hogue MD Work Phone: [phone]07-14-2025 16:13-0400 Body lmsluyfnltp99 [degF]Michael Hogue MD Work Phone: [phone]07-14-2025 16:13-0400 Body aanmpx509.34 kgMichael Hogue MD Work Phone: [phone]07-14-2025 16:13-0400 Diastolic blood jqitesos221 mm[Hg]Michael Hogue MD Work Phone: [phone]07-14-2025 16:13-0400 Heart rate88 /minMichael Hogue MD Work Phone: [phone]07-14-2025 16:13-0400 Respiratory rate18 /Hugo Hogue MD Work Phone: [phone] [place], [place] 9522807-14-2025 16:13-0400 SaO2% (BldA) [Mass fraction]95 %Michael Hogue MD Work Phone: [phone] [place], [place] 9522807-14-2025 16:13-0400 Systolic blood lhaquqsz016 mm[Hg]Michael Hogue MD Work Phone: [phone] [place], [place] 9522806-03-2025 12:16-0400 Diastolic blood ajwlevej715 mm[Hg]Michael Hogue MD Work Phone: [phone] [place], [place] 9522806-03-2025 12:16-0400 Systolic blood suykaeeg283 mm[Hg]Michael Hogue MD Work Phone: [phone] [place], [place] 9522806-03-2025 11:59-0400 Body ujpcix678.18 cmMer[facility]06-03-2025 11:59-0400Body mass index (BMI) [Ratio]47.7 kg/n3SrozxwfbhMercy Health Fairfield Hospital06-03-2025 11:59-0400Body khzdxxtjzal22.3 [degF][facility]06-03-2025 11:59-0400Body .34 kgMercy Health Fair[facility] Hospital06-03-2025 11:59-0400Diastolic blood twtbrynl275 mm[Hg][facility] 03-22-2025 11:59-0400Heart rate87 /[facility] 03-22-2025 11:59-0400Respiratory rate16 /[facility] 03-22-2025 11:59-2405JjS0% (BldA) [Mass fraction]97 %[facility]06-03-2025 11:59-0400Systolic blood mm[Hg][facility]12-12-2024 13:37-0500Blood Pressure LocationJEADVANCED CARE [facility]12-12-2024 13:37-0500Diastolic blood rqoldvyh466 mm[Hg]GILDA TURNER [facility]12-12-2024 13:37-0500Heart rate86 /minJENNIFER JOHNNY [facility]12-12-2024 13:37-0500Systolic blood cuesrbac879 mm[Hg]GILDA TURNER [facility]07-31-2024 14:05-0400Body aevyth186.18 cmMercy Health [facility] Hospital07-31-2024 14:05-0400Body mass index (BMI) [Ratio]44.1 kg/w1SojmivufuMercy Health Fairfield Hospital07-31-2024 14:05-0400Body lhgxiexmvlc00.1 [degF][facility]07-31-2024 14:05-0400Body juyfdp352 kgMercy Health Fairfield Hospital07-31-2024 14:05-0400Diastolic blood cftaelry702 mm[Hg][facility]07-31-2024 14:05-0400Heart rate92 /[facility]07-31-2024 14:05-0400Respiratory rate18 /[facility]07-31-2024 14:05-9300ZpE8% (BldA) [Mass fraction]98 %[facility]07-31-2024 14:05-0400Systolic blood zreecgnc288 mm[Hg] [facility]07-29-2024 15:35-0400Body laecox327.18 cm [facility]07-29-2024 15:35-0400Body mass index (BMI) [Ratio]44.1 kg/q7LdtagqmkfMer[facility]07-29-2024 15:35-0400Body ajnvsirjend19.4 [degF][facility]07-29-2024 15:35-0400Body .02 [facility]2024 15:35-0400Heart rate 88 /[facility]07-29-2024 15:35-0400Respiratory rate18 /[facility]07-29-2024 15:35-7642WvI8% (BldA) [Mass fraction]98 %[facility]07-06-2022 14:40-0400Body height 170.18 cmPjuanjo Lobo Other [employer] Other 07-06-2022 14:40-0400Body mass index (BMI) [Ratio] 42.75 kg/c0Kppewznitish Lobo Other [employer] Other 07-06-2022 14:40-0400Body qwqgukxdqvl77.5 [degF]Cassie Lashell Other [employer] Other 07-06-2022 14:40-0400Body vvcyjr808.83 kgCassie Lobo Other [employer] Other 07-06-2022 14:40-0400Diastolic blood alxqufuq05 mm[Hg] Cassie Lashell Other [employer] Other 07-06-2022 14:40-0400Respiratory rate18 /Buzz Lobo Other [employer] Other 07-06-2022 14:40-7564ZjB5% (BldA) [Mass fraction]97 % Cassie Lashell Other [employer] Other 07-06-2022 14:40-0400Systolic blood reemdovp963 mm[Hg] Cassie Lobo Other [employer] Other 12-16-2021 14:45-0500Body pjaeuu314.18 cmSuzma Arce Other [employer] Other 12-16-2021 14:45-0500Body mass index (BMI) [Ratio] 45.42 kg/f3Otsgoawer Claude Other [employer] Other 12-16-2021 14:45-0500Body esjcrbbvpoa97.7 [degF] Mahnaz Claude Other [employer] Other 12-16-2021 14:45-0500Body yhbsti539.54 kgStmolina Claude Other [employer] Other 12-16-2021 14:45-0500Respiratory rate18 /minSuzma Claude Other [employer] Other 12-16-2021 14:45-6872ZyX7% (BldA) [Mass fraction]97 % Mahnaz Claude Other [employer] Other Encounters Encounter DateEncounter TypeCare ProviderFacilityStart: 05-02-2025 End: 37-23-6777oszpuihqdcQkl E Knight MD Work Phone: [facility] Work Phone: Start: 05-02-2025 End: 35-16-6216Hqnjzfz encounter procedureAmanbaldemar Johnson TEST DEVELOPMENT ENGINEER-[facility] [place] Work Phone: Start: 03-22-2025 End: 89-23-8912caloftrnamXryuayrhtK[facility] Work Phone: Start: 03-22-2025 End: 68-95-1227Hwcczti encounter procedureNov[facility] [place] Work Phone: Start: 10-07-2024 End: 20-52-7580xfjftctexvZcah L SchwabFacility:FT FM BellevueStart: 10-05-2024 End: 60-95-4445ghpzswgnobKftwyao R WATERSFacility:FTMCStart: 10-05-2024 End: 34-30-5063Bkswaas encounter procedurePatrick R SELLERS [facility] Start: 09-30-2024 End: 97-03-1458wkcuoifbmxPQDXOEYE E PERRYFacility:FTMCStart: 09-30-2024 End: 68-06-4794Iad Drop offJENNIFER E JOHNNY [facility] Start: 09-30-2024 End: 24-14-3543wcsukiuvbwWJEOTGGL E PERRYFacility:EU evueStart: 09-30-2024 End: 77-52-2616Rzccooy encounter procedureJENNIFER E JOHNNY [facility] start: 29-10-0991vfgegziwfnExvs SchwabFacility:EU [place]kyStart: 05-20-2024 End: 49-66-4023rflgmctxmvNvyj L SchwabFacility:FT FM BellevueStart: 05-19-2024 End: 00-56-6992vjwxibfsffIpgbwgzqsK[facility]tering Health [facility] Work Phone: Start: 05-19-2024 End: 05-45-9861Mjajqko encounter procedureNov[facility] [place] Work Phone: Start: 05-17-2024 End: 02-71-7105emmciwtjbsVxyjhdbksKettering Health [place] Work Phone: Start: 05-17-2024 End: 49-35-8505Qvgwyco encounter procedureNov[facility] [place] Work Phone: Start: 02-20-2024 End: 57-34-5941Oim Drop offJodi L Steve [facility] Start: 02-20-2024 End: 45-22-0328xyludrdkliQwnt L SchwabFacility:FTMCStart: 06-06-2023 End: 69-53-2779Mky Drop offJodi L Steve [facility] Start: 02-26-2023 End: 29-50-0798Gai Drop offJodi L Steve [facility] Start: 04-24-2022 End: 26-90-2930dxisgxjkpjXsoszr Lashell Other [employer] Other Start: 35-72-1661Kubpzr outpatient visit 15 minutes Cassie LoboFPG [facility] ClydeStart: 10-04-2021 End: 05-42-8443xshiglqmtuJjjnpglvq Breault Other [employer] Other Start: 26-29-5996Wixpdr outpatient visit 15 minutes Mahnaz ArceFPG [facility] ClydeStart: 04-04-2020 End: 14-50-1556Tmxeisd encounter procedureNABIL EBRAHEIMFacility:UTMCStart: 03-07-2020 End: 14-51-7950Esnsycc encounter procedureCHRISTOPHER FRIDRICHFacility:Z5Mhpto: 09-21-2019 End: 71-21-1314Qlhfbpd encounter procedureJOHN PARENTEFacility:H1 Procedures DateProcedureProcedure DetailPerforming ClinicianStart: 80-04-2463XJDFJS KNEE JOINT SURGERYSHEINSTEIN MEDICAL C[facility] BHATTStart: 65-15-5738HAPA ARTHROSCOPY/SURGERYNABIL RICKYRAHEIM Arthroscopy of kneeNancy Wilson Comment on above:2019Loss of teeth due to extraction (disorder)Nancy Wilson Comment on above:2 extractedRefusal of treatment by patientRefuses treatmentNancy Wilson Plan of Treatment DateCare ActivityDetailAuthorPatient EducationLow Back Pain (DC)[facility] Work Phone: [facility] Immunizations Immunization DateImmunizationNotesCare ProviderFacilityNEGATED: Highlighted row has not occurred![phone]-CoV-2 mRNA (tozinameran 5y-11y) vaccineNancy Wilson [phone]-EibnlAultman Hospital DatePayer CategoryPayerPolicy [id number] Health [id number] 2..1.353241.3.57[id number] 2..1.331801.3.57[id number] 2..1.798357.3.57[id number] 2..1.129331.3.57[id number] 2..1.574304.3.57[id number] 2..1.248675.3.57[id number] 2..1.115407.3.57[id number] 2.0.1.745969.3.57[id number] 2.840.1.404598.3.57[id number] 2..1.068654.3.579.2.82809-98-8575Evne-[id number] Private Health [id number] 2..1.938514.19UnknownUnknown [id number] 2..1.199028.19UnknownDEFALLEGHENY VALLEY HOSPITAL [facility] [id number] Social History DateTypeDetailFacilityUnknown if ever smokedNomercy hospital st. [facility]l Other Sex Assigned At [facility] TobaccoCurrent vaping or e-cigarette use Smokeless Tobacco Use:. VapingEast [place] Regional HospitalTobacco smoking statusNo Smoking Status [facility]24 End: 78-14-8479Nlzoapm smoking status NHISNever smoked tobacco (finding) [facility]tart: 60-66-5839Clj Assigned At [facility]Tobacco smoking statusEx-smoker (finding) [facility] BellevueStart: 19-89-8831Wnb Male (finding)[facility] Hospitaltart: 39-72-3045Qobxjox smoking status NHISUnknown if ever smokedMercy Health [facility] Functional Status ZvypSgoqextzjrKktvdyYylrvgvr72-91-2124Zpcvgdszub StatusN/AFisher [facility] CampusNxtrqx33-35-9397Mbwzojfemi StatusN/AExec[facility] Diomedes Clinical Notes 04-24-2022 to 03-22-2025 Note Date & InanCkjqMnujqpsm43-86-0590 Evaluation note* Diagnosis Onset Date Resolution Status Admit Date High blood pressure noneactiveJune 2024 11:56amContact dermatitisnoneactiveJune 2024 11:56am [facility] Work Phone: [phone] 771-539812-17-2024 Hospital Discharge instructions Patient Education 10/05/2024 14:14:15 EU - Cystoscopy Discharge Instructions (CUSTOM) Cystoscopy Voiding after the procedure: there may be some pain, burning, urgency, frequency and blood tinged urine following the procedure. These symptoms usually resolve within 2-5 days. Drink the amount of fluid it takes to keep the urine pink to yellow or clear in color. Drinking enough water and fluids will help to ease any discomfort after your procedure. If you are having problems that seem out of the ordinary, please call. If unable to contact your physician and you feel it is an emergency, go to the nearest emergency room or call 911 Diet you may resume your normal diet. Activity you may resume your normal activities Call if you have a fever over 100 degrees. Follow Up Care 09/30/2024 15:39:46 With:Avery SELLERS Address: [address] [place], [place] [id number]- Business (1) When: Unknown Comments:Call for followup appointment [facility] [phone] NotePatient Education Custom Cystoscopy ??? Voiding after the procedure: there may be some pain, burning, urgency, frequency and blood tinged urine following the procedure. These symptoms usually resolve within 2-5 days. Drink the amount of fluid it takes to keep the urine pink to yellow or clear in color. Drinking enough water and fluids will help to ease any discomfort after your procedure. ??? If you are having problems that seem out of the ordinary, please call. ??? If unable to contact your physician and you feel it is an emergency, go to the nearest emergency room or call 911 ??? Diet ??? you may resume your normal diet. ??? Activity ??? you may resume your normal activities ??? Call if you have a fever over 100 degrees.[facility] 09-30-2024 Hospital Discharge instructions Patient Education 09/30/2024 13:57:41 Hematuria, Adult Hematuria, Adult Hematuria is blood in the urine. Blood may be visible in the urine, or it may be identified with a test. This condition can be caused by infections of the bladder, urethra, kidney, or prostate. Otherpossible causes include: Kidney stones. Cancer of the urinary tract. Too much calcium in the urine. Conditions that are passed from parent to child (inherited conditions). Exercise that requires a lot of energy. Infections can usually be treated with medicine, and a kidney stone usually will pass through your urine. If neither of these is the cause of your hematuria, more tests may be needed to identify the cause of your symptoms. It is very important to tell your health care provider about any blood in your urine, even if it ispainless or the blood stops without treatment. Blood in the urine, when it happens and then stops and then happens again, can be a symptom of a very serious condition, including cancer. There is no pain in the initial stages of many urinary cancers. Follow these instructions at home: Medicines Take bzrk-sxy-mssdhrn and prescription medicines only as told by your health care provider. If you were prescribed an antibiotic medicine, take it as told by your health care provider. Do notstop taking the antibiotic even if you start to feel better. Eating and drinking Drink enough fluid to keep your urine pale yellow. It is recommended that you drink 3 4 quarts (2.83.8 L) a day. If you have been diagnosed with an infection, drinking cranberry juice in addition tolarge amounts of water is recommended. Avoid caffeine, tea, and carbonated beverages. These tend to irritate the bladder. Avoid alcohol because it may irritate the prostate (in males). General instructions If you have been diagnosed with a kidney stone, follow your health care provider's instructions about straining your urine to catch the stone. Empty your bladder often. Avoid holding urine for long periods of time. If you are female: ?After a bowel movement, wipe from front to back and use each piece of toilet paper only once. ?Empty your bladder before and after sex. Pay attention to any changes in your symptoms. Tell your health care provider about any changes or any new symptoms. It is up to you to get the results of any tests. Ask your health care provider, or the department that is doing the test, when your results will be ready. Keep all follow-up visits. This is important. Contact a health care provider if: You develop back pain. You have a fever or chills. You have nausea or vomiting. Your symptoms do not improve after 3 days. Your symptoms get worse. Get help right away if: You develop severe vomiting and are unable to take medicine without vomiting. You develop severe pain in your back or abdomen even though you are taking medicine. You pass a large amount of blood in your urine. You pass blood clots in your urine. You feel very weak or like you might faint. You faint. Summary Hematuria is blood in the urine. It has many possible causes. It is very important that you tell your health care provider about any blood in your urine, even ifit is painless or the blood stops without treatment. Take jvco-psw-kofhhne and prescription medicines only as told by your health care provider. Drink enough fluid to keep your urine pale yellow. This information is not intended to replace advice given to you by your health care provider. Make sure you discuss any questions you have with your health care provider. Document Revised: 06/06/2021 Document Reviewed: 06/06/2021 [employer] Patient Education 2023 [employer] Payment. Follow Up Care 09/22/2024 13:37:34 With:JOHNNY VENTURA, GILDA Whiteside, URL Address: [address] [place] [address]. [place] [address] When: Unknown [facility] 12-12-2024 NotePatient Education Urology Hematuria, Adult Hematuria is blood in the urine. Blood may be visible in the urine, or it may be identified with a test. This condition can be caused by infections of the bladder, urethra, kidney, or prostate. Otherpossible causes include: ??? Kidney stones. ??? Cancer of the urinary tract. ??? Too much calcium in the urine. ??? Conditions that are passed from parent to child (inherited conditions). ??? Exercise that requires a lot of energy. Infections can usually be treated with medicine, and a kidney stone usually will pass through your urine. If neither of these is the cause of your hematuria, more tests may be needed to identify the cause of your symptoms. It is very important to tell your health care provider about any blood in your urine, even if it ispainless or the blood stops without treatment. Blood in the urine, when it happens and then stops and then happens again, can be a symptom of a very serious condition, including cancer. There is no pain in the initial stages of many urinary cancers. Follow these instructions at home: Medicines ??? Take eliz-skw-hdmkvcd and prescription medicines only as told by your health care provider. ??? If you were prescribed an antibiotic medicine, take it as told by your health care provider. Donot stop taking the antibiotic even if you start to feel better. Eating and drinking ??? Drink enough fluid to keep your urine pale yellow. It is recommended that you drink 3?4 quarts (2.8?3.8 L) a day. If you have been diagnosed with an infection, drinking cranberry juice in addition to large amounts of water is recommended. ??? Avoid caffeine, tea, and carbonated beverages. These tend to irritate the bladder. ??? Avoid alcohol because it may irritate the prostate (in males). General instructions ??? If you have been diagnosed with a kidney stone, follow your health care provider's instructionsabout straining your urine to catch the stone. ??? Empty your bladder often. Avoid holding urine for long periods of time. ??? If you are female: ? After a bowel movement, wipe from front to back and use each piece of toilet paper only once. ? Empty your bladder before and after sex. ??? Pay attention to any changes in your symptoms. Tell your health care provider about any changesor any new symptoms. ??? It is up to you to get the results of any tests. Ask your health care provider, or the department that is doing the test, when your results will be ready. ??? Keep all follow-up visits. This is important. Contact a health care provider if: ??? You develop back pain. ??? You have a fever or chills. ??? You have nausea or vomiting. ??? Your symptoms do not improve after 3 days. ??? Your symptoms get worse. Get help right away if: ??? You develop severe vomiting and are unable to take medicine without vomiting. ??? You develop severe pain in your back or abdomen even though you are taking medicine. ??? You pass a large amount of blood in your urine. ??? You pass blood clots in your urine. ??? You feel very weak or like you might faint. ??? You faint. Summary ??? Hematuria is blood in the urine. It has many possible causes. ??? It is very important that you tell your health care provider about any blood in your urine, even if it is painless or the blood stops without treatment. ??? Take jvmc-gyo-mriqfpb and prescription medicines only as told by your health care provider. ??? Drink enough fluid to keep your urine pale yellow. This information is not intended to replace advice given to you by your health care provider. Make sure you discuss any questions you have with your health care provider. Document Revised: 06/06/2021 Document Reviewed: 06/06/2021 [employer] Patient Education ? 2023 [employer] Payment.[facility] 06-06-2023 Evaluation + Plan note Diagnostic Tests Pending * Chlam/GC/Trich,GRISELDA 06/06/23 [facility]05-10-2023 Evaluation + Plan note Diagnostic Tests Pending * RPR with Conf Rfx 02/26/23 * Chlam/GC/Trich,GRISELDA 02/26/23 [facility]07-06-2022 Evaluation note* Encounter Date Diagnosis Assessment Notes Treatment Notes Treatment Clinical Notes Apr, Contact dermatitis, unspecified contact dermatitis type, unspecified trigger (ICD-10 - L25.9) Drink plenty fluids, get plenty of rest. Take the prednisone as prescribed until gone. You may takeBenadryl as needed for itching. Apply calamine lotion to the rash for comfort. Follow-up with your family physician if no improvement in 2 to 3 days. Apr,therContact dermatitis home care material was printed [employer] Other Evaluation + Plan note Future Appointments Appointment Date:10/04/2024 01:00:00 PM Scheduled Provider: Location:[facility] Appointment Type:Urology CALL PAT Appointment Date:10/05/2024 02:15:00 PM Scheduled Provider: Location:[facility] Appointment Type:Urology FT Appointment Date:10/07/2024 10:40:00 AM Scheduled Provider:Nancy Blevins Location:[facility] Appointment Type: ER/Hospital Follow Up Diagnostic Tests Pending * Urine Cytology ([facility]) 09/30/24 [facility] evaluation + Plan note Future Appointments Appointment Date:10/04/2024 01:00:00 PM Scheduled Provider: Location:[facility] Appointment Type:Urology CALL PAT FT Appointment Date:10/05/2024 02:15:00 PM Scheduled Provider: Location:[facility] Appointment Type:Urology FT Appointment Date:10/07/2024 10:40:00 AM Scheduled Provider:Nancy Blevins Location:[facility] Appointment Type: ER/Hospital Follow Up [facility] evaluation + Plan note Future Appointments Appointment Date:10/07/2024 10:40:00 AM Scheduled Provider:Nancy Blevins Location:[facility] Appointment Type: ER/Hospital Follow Up [facility] evaluation noteNort Hudl Other Evaluation note* Diagnosis Onset Date Resolution Status Low back strain acute [facility] Work Phone: Evaluation note* Diagnosis Onset Date Resolution Status Low back strain acuteLow back strainacute [facility] Work Phone: Evaluaszec noteNo assessment information available [facility] Work Phone: History general Narrative - ReportedN[facility]cy hospital [facility] Other Hislzfw general Narrative - Reported* Type Description Date Medical History hypertension Surgical Historyknee pgunreu5023Kthsucqbpjyovpw Historysee above [place] [facility] Other Hospital course Narrative No data available for this section [facility] Dis[facility] instructions No data available for this section [facility] [place] [facility] HospitalProgress note No data available for this section [facility] [place] [facility] HospitalReason for referral (narrative)No reason for referral information availableKing'S Daughters [facility] [place] Work Phone: Summary Purpose Family History Relationship Condition Age at Onset Recorded Date/T maxime father Diabetes mellitus Unknown Advance Directives Advance Directive Response Recorded Date/ Time Advance Directives No May 17 3:27pm Chief Complaint and Reason for Visit Chief Complaint lower back pain Reason for Visit Low back strain Chief Complaint lower back pain lower back painReason for VisitLow back strain Low back strain Chief Complaint Admit Date Poss allergic reaction, rash March 22 11:56am Chief Complaint Admit Date Poss allergic reaction, rash March 22 11:56am Left inner thigh poss bug bite April 4:11pm Reason for Visit Admit Date High blood pressure March 22, 2025 11:56 am Contact dermatitis March 22, 2025 11:56 am Additional Source Comments (unrecognized sect ion and content) No Status Records FoundNo Status Records FoundNo Status Records FoundNo Status Records Found INFORMATION SOURCE (unrecogn ized section and content) DATE CREATED AUTHOR 03/09/2020 [facility] DATE CREATED AUTHOR AUTHOR'S ORGANIZ ATION 04/13/2020 [facility] DATE CREATED AUTHOR AUTHOR'S ORGANIZ ATION 10/10/2024 [facility] DATE CREATED AUTHOR AUTHOR'S ORGANIZ ATION 11/23/2024 [facility] REASON FOR VISIT (unrecogniz ed section and content) RASH Patient Care team informatio n (unrecognized section and content) Team Status: Active Member Role Status Dates Michael Hogue MD Primary Care Provider Active Team Status: Inactive Member Role Status Dates Michael Hogue MD Primary Care Provider Active S tart: May 17, 2024 End: May 17, 2024Noa Upton ProviderActiveStart: May 17, 2024 End: May 17, 2024 Team Status: Inactive Member Role Status Dates Michael Hogue MD Primary Care Provider Active S tart: May 19, 2024 End: May 19anurag Dodd LIZETTShayan ProviderActiveStart: May 19, 2024 End: May 19, 2024 Team Status: Inactive Member Role Status Dates Michael Hogue MD Primary Care Provider Active S tart: March 22, 2025 End: March 22Noa Grossman ProviderActiveStart: March 22, 2025 End: March 22, 2025 Team Status: Inactive Member Role Status Dates Michael Hogue MD Primary Care Provider Active S tart: May 02, 2025 End: May 02Noa Whitley ProviderActiveStart: May 02, 2025 End: May 02, 2025 Goals (unrecognized section and content) Goals may [...] BE BASED ON THE PRIMARY CLINICAL RECORDS. [employer] provides no warranty or guarantee of the accuracy or completeness of information in this document.
[2025-09-05 13:07] LABS: Hematocrit 46.0 % (42.0-54.0); Hemoglobin 16.2 g/dL (14.0-18.0); Immature Granulocytes Abs Auto 0.01 10^3/uL (0.00-0.03); Immature Granulocytes Pct Auto 0.2 % (0.0-0.5); Lymphocytes Absolute Auto 1.4 10^3/uL (1.2-3.8); Mean Corpuscular HGB Conc 35.2 g/dL (29.9-35.2); Mean Corpuscular Hemoglobin 30.2 pg (25.9-34.0); Mean Corpuscular Volume 85.7 fL (80.0-94.0); Platelet Count 219 10^3/uL (150-450); Red Blood Count 5.37 10^6/uL (4.70-6.10); White Blood Count 4.7 10^3/uL (4.0-11.0)
[2025-09-05 13:24] LABS: Alanine Aminotransferase 77 U/L (16-63); Albumin Globulin Ratio 1.1; Albumin Level 3.7 g/dL (3.4-5.0); Alkaline Phosphatase 139 U/L (46-116); Anion Gap 9.1; Aspartate Amino Transferase 24 U/L (15-37); Blood Urea Nitrogen 10.0 mg/dL (7.0-18.0); Calcium 8.5 mg/dL (8.5-10.1); Carbon Dioxide 29.8 mmol/L (21.0-32.0); Chloride 102 mmol/L (98-107); Estimated GFR (African America >60 (>=60 mL/min/1.73m^2); Estimated GFR (Non-African Ame >60 (>=60 mL/min/1.73m^2); Globulin 3.5 g/dL; Glucose 191 mg/dL (74-106); Potassium 3.9 mmol/L (3.5-5.1); Sodium 137 mmol/L (136-145); Total Protein 7.2 g/dL (6.4-8.2)
--- NOTE | 2025-09-05 13:47 | CT_ITS ---
The [address] [address] Patient Name: JAMAL NICOLE MRN: [id number] date: 1990 Sex: M Assigned Patient Location: ER Current Patient Location: ER Accession/Order Number: [id number] Exam Date: 09/05/2025 13:41 Report Date: 09/05/2025 14:57 At the request of: MAREK MARROQUIN MD Procedure: CT angio neck CT angio head, CT angio neck 09/05/2025 1:47 PM SIGNS AND SYMPTOMS: stroke like, dizziness and imbalance with falls CONTRAST: 100 mL of intravenous Omnipaque 350 TECHNIQUE: Multi-detector CT angiography axial slices of the head and neck were obtained during intravenous administration of IV contrast material. Sagittal, coronal, and 3-D reconstructions were performed and viewed on a separate workstation. CT was performed with one or more of the following dose reduction techniques: Automated exposure control, adjustment of the mA and/or kV according to patient size, or use of iterative reconstruction technique. Stenoses were measured using the NASCET criteria. COMPARISON: None. FINDINGS: CTA HEAD: The superior cerebellar arteries, posterior inferior cerebellar arteries, and the basilar artery are within normal limits. The posterior cerebral arteries are unremarkable. The intracranial segments of the internal carotid arteries are within normal limits. There are normal anterior and middle cerebral arteries. Anterior communicating artery is patent. Posterior communicating arteries are present. The deep venous system and dural venous systems appear to be patent. No bony abnormalities are appreciated. CTA NECK: There is a normal three-vessel arch. The subclavian arteries are within normal limits. The vertebral arteries arise from the subclavian arteries and are normal in course and caliber up to the skull base. The common and internal carotid arteries are within normal limits. Visualized lung parenchyma is clear. No acute bony abnormalities are identified. The paraspinous soft tissues are within normal limits. CT/CT angio neck IMPRESSION: No evidence of focal stenosis, aneurysmal dilatation, dissection or occlusion. Impression dictated by: Simon Dickinson M.D. 09/05/2025 2:57 PM Dictation Location: [place] [address] Electronically authenticated by: [id number] Y Date: 09/05/2025 14:57
--- NOTE | 2025-09-05 13:47 | CT_ITS ---
The [address] [address] Patient Name: JAMAL NICOLE MRN: [id number] date: 1990 Sex: M Assigned Patient Location: ER Current Patient Location: ER Accession/Order Number: [id number] Exam Date: 09/05/2025 13:41 Report Date: 09/05/2025 14:57 At the request of: MAREK MARROQUIN MD Procedure: CT angio neck CT angio head, CT angio neck 09/05/2025 1:47 PM SIGNS AND SYMPTOMS: stroke like, dizziness and imbalance with falls CONTRAST: 100 mL of intravenous Omnipaque 350 TECHNIQUE: Multi-detector CT angiography axial slices of the head and neck were obtained during intravenous administration of IV contrast material. Sagittal, coronal, and 3-D reconstructions were performed and viewed on a separate workstation. CT was performed with one or more of the following dose reduction techniques: Automated exposure control, adjustment of the mA and/or kV according to patient size, or use of iterative reconstruction technique. Stenoses were measured using the NASCET criteria. COMPARISON: None. FINDINGS: CTA HEAD: The superior cerebellar arteries, posterior inferior cerebellar arteries, and the basilar artery are within normal limits. The posterior cerebral arteries are unremarkable. The intracranial segments of the internal carotid arteries are within normal limits. There are normal anterior and middle cerebral arteries. Anterior communicating artery is patent. Posterior communicating arteries are present. The deep venous system and dural venous systems appear to be patent. No bony abnormalities are appreciated. CTA NECK: There is a normal three-vessel arch. The subclavian arteries are within normal limits. The vertebral arteries arise from the subclavian arteries and are normal in course and caliber up to the skull base. The common and internal carotid arteries are within normal limits. Visualized lung parenchyma is clear. No acute bony abnormalities are identified. The paraspinous soft tissues are within normal limits. CT/CT angio head IMPRESSION: No evidence of focal stenosis, aneurysmal dilatation, dissection or occlusion. Impression dictated by: Simon Dickinson M.D. 09/05/2025 2:57 PM Dictation Location: [place] [address] Electronically authenticated by: [id number] Y Date: 09/05/2025 14:57
[2025-09-05] MEDS: ASPIRIN 81 MG TAB.CHEW 324 MG PO (13:52)
--- OUTSIDE RECORDS SUMMARY | 2025-09-05 15:54 | XMS_ITS | CCD ---
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 above:Performed By: #### 26893 #### [facility] [address] [facility] [place] [address], USAHemoglobin (Bld) [Mass/Vol]15.9 g/kLDjsxys08.0-17.0The [facility] MiamisburgComment on above:Performed By: #### 36413 #### [facility] [address] [facility] [place] [address], USAIMMATURE GRANS0.4 %Normal0.0-1.0The [facility] MiamisburgComment on above:Performed By: #### 71666 #### [facility] [address] [facility] [place] [address], USALymphocytes (Bld) [#/Vol]1.4 10*3/uLNormal1.2-4.0The [facility]amisburgComment on above:Performed By: #### 87308 #### [facility] [address] [place] [address], USALymphocytes/100 WBC (Bld)28.3 %Tpvwzk68.0-45.0The [facility] MiamisburgComment on above:Performed By: #### 24470 #### [facility] [address] [facility] [place] [address], USAMCH (RBC) [Entitic mass]30.1 cgJnqkck85.0-33.0The [facility] MiamisburgComment on above:Performed By: #### 31169 #### [facility] [address] [facility] [place] [address], USAMCHC (RBC) [Mass/Vol]34.6 g/bHJdvhnh67.0-35.0The [facility]burgComment on above:Performed By: #### 18834 #### [facility] [address] [place] [address], [facility] MEDICAL CENTERMCV (RBC) [Entitic vol]86.8 aZLihxtq31.0-98.0The [facility] MiamisburgComment on above:Performed By: #### 73296 #### [facility] [address] [address], USAMonocytes (Bld) [#/Vol]0.7 10*3/uLNormal0.1-1.0The [facility]amisburgComment on above:Performed By: #### 14823 #### [facility] [address] [place] [address], LGAMUWAX08.8 %High5.0-12.0The [facility] MiamisburgComment on above:Performed By: #### 83499 #### [facility] [address] [place] [address], USANeutrophils/100 WBC (Bld)52.2 %Srdrzg33.0-72.0The [facility]amisburgComment on above:Performed By: #### 39413 #### [facility] [address] [place] [address], USANucleated RBC/100 WBC (Bld) [Ratio]0 %Normal0-0The [facility]amisburgComment on above:Performed By: #### 62909 #### [facility] [address] [place] [address], USAPLAT PSA766 10*3/rWJkhgxu901-113Fow [facility]amisburgComment on above:Performed By: #### 49606 #### [facility] [address] [place] [address], USARBC (Bld) [#/Vol]5.29 10*6/uLNormal4.20-5.70The [facility] MiamisburgComment on above:Performed By: #### 47629 #### [facility] [address] [place] [address], USAWBC (Bld) [#/Vol]5.06 10*3/uLNormal4.00-10.60The [facility]amisburgComment on above:Performed By: #### 47993 #### [facility] [address] [address] [place] [address], USAPROTHROMBIN TIMEon 29-91-9759PBO Coag (PPP) [Relative time] 0.90 {INR}Low0.91-1.16The [facility] MiamisburgComment on above: Result Comment: ACCCP RECOMMENDED INR [...] OPTIMAL THERAPEUTIC RANGE. CHEST 1995;108:231S-246S.Performed By: #### 10394, [id number] #### [facility] [address] [facility] [place] [address], USAPT Coag (PPP) [Time]12.1 sLow12.3-14.8The [facility] MiamisburgComment on above:Result Comment: ALL RESULTS MUST BE INTERPRETED WITH RESPECT TO BLOOD DRAWING ARTIFACT OR DILUTION ERROR OF ANTICOAGULANT AT THE TIME OF SAMPLING.Performed By: #### 26910, 64702 #### [facility] [address] [place] [address], [facility] MEDICAL CENTEROUTSIDE IMAGES FOR CONSULTATIONon 60-51-0239LMFVMCQ IMAGES FOR CONSULTATIONKettering Health [facility]amisburg Department of Radiology [address] [place] [id number] Patient Name: EMANUEL PATEL : 1990 Sex: M Age: Race: NA Pt. Location: OUTP Patient Status: D Ordered Date: 03/16/2020 3:25:00 PM Completed Date: 03/16/2020 03:26 PM Requesting Provider: KRISTIE MENDOZA Attending Provider: KRISTIE MENDOZA Report Copy To: Signs & Symptoms: Left Knee Pain History: MRI Of Left Knee Images are from [facility] Taken on 10/26/19 Requesting physician Kristie Mendoza Comments: Exam: OUTSIDE IMAGES FOR CONSULTATION OUTSIDE IMAGES FOR CONSULTATION 03/16/2020 3:26 PM OUTSIDE STUDY: MRI of the left knee TECHNIQUE: Outside MRI images of the left knee obtained from [facility] diagnostic imaging dated October 26, 2019. Image [...] interpretation. Electronically signed: Otilio Evangelista. Transcribed by: [email or web address], User Resident: Electronically Signed by: OTILIO EVANGELISTA @ 03/22/2020 11:28 AMNUniversity Hospitals Cleveland Medical CenterXR LSPINE 2_3 VIEWSon 79-02-8911LK LSPINE 2_3 VIEWSEXAM: XR L-SPINE 2-3 VIEWS [...] Electronically authenticated by: TESS SHAIKH Date: 2020-03-08 01:59[facility] TSPINE 2 VIEWSon 53-17-9750ZH TSPINE 2 VIEWSEXAM: XR T-SPINE 2 VIEWS [...] Electronically authenticated by: TESS SHAIKH Date: 2020-03-08 02:09[facility] HealthcareXR KNEE LT 4V OR >on 37-30-9573HH KNEE LT 4V OR >Patient: EMANUEL PATEL Exam Date: 09/21/2019 : 1990 Gender:M Ordering : DR LIVE KNUTSON Admission #: [id number] Family : DR MICHAEL HOGUE . Order #: [id number] CLICK HERE TO VIEW EXAM RADIOLOGY REPORT [...] by: Moe Palma M.D. on 09/21/2019 at 22:26[facility] Vital Signs Date TimeVital SignValuePerforming IqqabgmugFjeyrtse47-51-4048 16:13-0400Body llnatu573.18 cmMichael Hogue MD Work Phone: [phone])[address]07-14-2025 16:13-0400 Body mass index (BMI) [Ratio]47.7 kg/m2Michael Hogue MD Work Phone: [phone]07-14-2025 16:13-0400 Body tnhqotdtpcc30 [degF]Michael Hogue MD Work Phone: [phone]07-14-2025 16:13-0400 Body xlirea412.34 kgMichael Hogue MD Work Phone: [phone])[address]07-14-2025 16:13-0400 Diastolic blood wwybiiyx889 mm[Hg]Michael Hogue MD Work Phone: [phone])[address]07-14-2025 16:13-0400 Heart rate88 /minMichael Hogue MD Work Phone: 1(838)[address]07-14-2025 16:13-0400 Respiratory rate18 /Hugo Hogue MD Work Phone: [phone])[address] [place], [place] 0233807-14-2025 16:13-0400 SaO2% (BldA) [Mass fraction]95 %Michael Hogue MD Work Phone: [phone])[address] [place], [place] 0233807-14-2025 16:13-0400 Systolic blood uxfzlxel888 mm[Hg]Michael Hogue MD Work Phone: [phone])[address] [place], [place] 0233806-03-2025 12:16-0400 Diastolic blood qhegytjz505 mm[Hg]Michael Hogue MD Work Phone: 1(670)[address] [place], [place] 0233806-03-2025 12:16-0400 Systolic blood fpjjznhu467 mm[Hg]Michael Hogue MD Work Phone: [phone])[address] [place], [place] 0233806-03-2025 11:59-0400 Body wisxeq393.18 [facility] 11:59-0400Body mass index (BMI) [Ratio]47.7 kg/t4QirwyissjOhio State [facility] Hospital06-03-2025 11:59-0400Body kigdovmjtje67.3 [degF][facility]06-03-2025 11:59-0400Body jyggjl818.34 kgOhio [facility]06-03-2025 11:59-0400Diastolic blood jdwbmosu007 mm[Hg][facility] 03-22-2025 11:59-0400Heart rate87 /[facility] 03-22-2025 11:59-0400Respiratory rate16 /[facility] 03-22-2025 11:59-6844BcD5% (BldA) [Mass fraction]97 %[facility]06-03-2025 11:59-0400Systolic blood ybkrpgwl939 mm[Hg][facility]12-12-2024 13:37-0500Blood [facility]12-12-2024 13:37-0500Diastolic blood wuiozfvr187 mm[Hg]GILDA TURNER [facility]12-12-2024 13:37-0500Heart rate86 /minJENNIFER JOHNNY [facility]12-12-2024 13:37-0500Systolic blood ergykoph052 mm[Hg]GILDA TURNER [facility]07-31-2024 14:05-0400Body yijzxj240.18 cmOhio [facility] Hospital07-31-2024 14:05-0400Body mass index (BMI) [Ratio]44.1 kg/e3ZghpzibcuOhio State East Hospital07-31-2024 14:05-0400Body qpawcrzegby27.1 [degF][facility]07-31-2024 14:05-0400Body ftqunt934 kgOhio [facility] Hospital07-31-2024 14:05-0400Diastolic blood mm[Hg][facility]07-31-2024 14:05-0400Heart rate92 /[facility]07-31-2024 14:05-0400Respiratory rate18 /[facility]07-31-2024 14:05-0467WnV0% (BldA) [Mass fraction]98 %[facility]07-31-2024 14:05-0400Systolic blood aeqoprzw818 mm[Hg] [facility]07-29-2024 15:35-0400Body ihkqsz051.18 cm [facility]07-29-2024 15:35-0400Body mass index (BMI) [Ratio]44.1 kg/r4FngvvpyoaOhio State East Hospital07-29-2024 15:35-0400Body olgugglerby44.4 [degF][facility]07-29-2024 15:35-0400Body axchis314.02 kgOhio State [facility] Hospital07-29-2024 15:35-0400Heart rate 88 /[facility]07-29-2024 15:35-0400Respiratory rate18 /[facility]07-29-2024 15:35-3148IkZ8% (BldA) [Mass fraction]98 %[facility]07-06-2022 14:40-0400Body height 170.18 cmPjuanjo Lobo Other [employer] Other 07-06-2022 14:40-0400Body mass index (BMI) [Ratio] 42.75 kg/i9Mblmdsnitish Lobo Other [employer] Other 07-06-2022 14:40-0400Body razjuurwiak70.5 [degF]Cassie Lashell Other [employer] Other 07-06-2022 14:40-0400Body klyhvd805.83 kgCassie Lobo Other [employer] Other 07-06-2022 14:40-0400Diastolic blood owaqygna68 mm[Hg] Cassie Lashell Other [employer] Other 07-06-2022 14:40-0400Respiratory rate18 /Buzz Lobo Other [employer] Other 07-06-2022 14:40-2604ZnB8% (BldA) [Mass fraction]97 % Cassie Lashell Other [employer] Other 07-06-2022 14:40-0400Systolic blood mm[Hg] Cassie Lobo Other nort [employer] Other 12-16-2021 14:45-0500Body ubtzeu471.18 cmSuzma Arce Other [employer] Other 12-16-2021 14:45-0500Body mass index (BMI) [Ratio] 45.42 kg/w0Horttpvye Claude Other [employer] Other 12-16-2021 14:45-0500Body qlqzezarobz98.7 [degF] Mahnaz Claude Other [employer] Other 12-16-2021 14:45-0500Body .54 kgStmolina Claude Other [employer] Other 12-16-2021 14:45-0500Respiratory rate18 /minSuzma Claude Other [employer] Other 12-16-2021 14:45-2120LxD4% (BldA) [Mass fraction]97 % Mahnaz Claude Other [employer] Other Encounters Encounter DateEncounter TypeCare ProviderFacilityStart: 05-02-2025 End: 67-45-9180zmxmmoqvorQvg E Knight MD Work Phone: [facility] Work Phone: Start: 05-02-2025 End: 89-17-7537Yisisvh encounter procedureAmanbaldemar Johnson [facility] Work Phone: Start: 03-22-2025 End: 04-79-9464sgnygfzsehNnezotnxnLima [facility] Hospital Work Phone: Start: 03-22-2025 End: 95-30-7230Qfettbo encounter procedureAt[facility] Work Phone: Start: 10-07-2024 End: 31-54-4186owllxlycyiLgko L SchwabFacility:FT [facility] BellevueStart: 10-05-2024 End: 56-23-5037lsdkfboyjaIhhibsl R WATERSFacility:FTMCStart: 10-05-2024 End: 58-51-6566Dgzthnf encounter procedurePatrick R SELLERS [facility] Start: 09-30-2024 End: 74-59-5886ogzfxqyrdcQYMVYHXK E PERRYFacility:FTMCStart: 09-30-2024 End: 43-66-2093Efe Drop offJENNIFER E JOHNNY [facility] Start: 09-30-2024 End: 35-42-4503zjxigxtrzhDEAOYKMT E PERRYFacility:EU evueStart: 09-30-2024 End: 53-45-7433Lhmcphs encounter procedureJENNIFER E JOHNNY [facility] start: 07-74-8836mnzkjbbfdrYrup SchwabFacility:EU [place]uskyStart: 05-20-2024 End: 48-42-8452pwjpfzyjjnJoxe L SchwabFacility:[facility] BellevueStart: 05-19-2024 End: 39-35-4603yygmwnwqwgDqhfvtvhsLima Memorial Hospital Work Phone: Start: 05-19-2024 End: 57-46-9503Ysynknm encounter procedureAt[facility] Work Phone: Start: 05-17-2024 End: 76-30-6344whlpvqprqgBqnxtbucjLima Memorial Hospital Work Phone: Start: 05-17-2024 End: 74-32-6104Hcgzolu encounter procedureAt[facility] Work Phone: Start: 02-20-2024 End: 87-89-5450Wiz Drop offJodi L Steve [facility] Start: 02-20-2024 End: 60-98-5906jjrijwknjySwwn L SchwabFacility:FTMCStart: 06-06-2023 End: 86-30-2287Ita Drop offJodi L Steve [facility] Start: 02-26-2023 End: 65-58-1248Ykn Drop offJodi L Steve [facility] Start: 04-24-2022 End: 44-47-0712hflhdixzbjZrmkwn Lashell Other [employer] Other Start: 61-68-6051Fdxmqn outpatient visit 15 minutes Cassie LoboFPG Urgent Care ClydeStart: 10-04-2021 End: 01-79-1246zvaoxjnhrdModmyvzam Breault Other [employer] Other Start: 49-87-1027Ngzrxl outpatient visit 15 minutes Mahnaz ArceFPG Urgent Care ClydeStart: 04-04-2020 End: 29-42-2113Axspnsr encounter procedureNABIL EBRAHEIMFacility:UTMCStart: 03-07-2020 End: 57-11-2198Pgpqqsg encounter procedureCHRISTOPHER FRIDRICHFacility:X5Xhkss: 09-21-2019 End: 55-30-2609Keaipfp encounter procedureJOHN PARENTEFacility:H1 Procedures DateProcedureProcedure DetailPerforming ClinicianStart: 70-98-0295EKESQW KNEE JOINT SURGERYSHBUCKTAIL MED[facility] BHATTStart: 70-78-4014JTFB ARTHROSCOPY/SURGERYNABIL RICKYRAHEIM Arthroscopy of kneeNancy Wilson Comment on above:2019Loss of teeth due to extraction (disorder)Nancy Wilson Comment on above:2 extractedRefusal of treatment by patientRefuses treatmentNancy Wilson Plan of Treatment DateCare ActivityDetailAuthorPatient EducationLow Back Pain (DC)[facility] Work Phone: [facility] Immunizations Immunization DateImmunizationNotesCare ProviderFacilityNEGATED: Highlighted row has not occurred!01-10-4226RVMV-CoV-2 mRNA (tozinameran 5y-11y) vaccineNancy Wilson [phone]-MzmasRiverside Methodist Hospital DatePayer CategoryPayerPolicy [id number] Health [id number] 2..1.642646.3.57[id number] 2..1.077656.3.57[id number] 2..1.922291.3.57[id number] 2..1.098409.3.579.[id number] 2..1.801470.3.57[id number] 2..1.981479.3.579.2.97283-21-3201Akwiemm02532409 2..1.897773.3.579.[id number] 2.0.1.882053.3.579.[id number] 2.840.1.007167.3.579.2.[id number] 2..1.322450.3.579.2.31796-54-1883Sijq-[id number] Private Health [id number] 2..1.302655.19UnknownUnknown 5l77h5x6-6orn-69qd-[id number] 2..1.482807.19UnknownDEFHAVEN BE[facility] [id number] Social History DateTypeDetailFacilityUnknown if ever smokedNosaint john's [facility] Pay[employer] Other Sex Assigned At [facility] TobaccoCurrent vaping or e-cigarette use Smokeless Tobacco Use:. VapingAshtabula County Medical CenterTobacco smoking statusNo Smoking Status [facility]: 05-17-2024 End: 86-89-1087Llufath smoking status NHISNever smoked tobacco (finding) [facility]: 86-55-2468Idb Assigned At [facility] CenterTobacco smoking statusEx-smoker (finding) [facility] BellevueStart: 77-54-5964Bkp Male (finding)[facility] Hospitaltart: 75-02-6971Iwhqhqh smoking status NHISUnknown if ever smokedOhio [facility] Hospital Functional Status JpfhCnxcvfqgtgUcrtfdUvjhgiwi32-15-5347Ztgdbzlfpn StatusN/AFisher [facility] Medical CenterZwdaoa88-75-5218Qwcpfgdixi StatusN/AExec[facility] Di[facility]es Clinical Notes 04-24-2022 to 03-22-2025 Note Date & QdabEwsdVnftapep66-45-3145 Evaluation note* Diagnosis Onset Date Resolution Status Admit Date High blood pressure noneactiveJune 2024 11:56amContact dermatitisnoneactiveJune 2024 11:56am [facility] Work Phone: [phone] Hospital Discharge instructions Patient Education 10/05/2024 14:14:15 [...] Up Care 09/30/2024 15:39:46 With:Avery SELLERS Address: [address] [place], [place] [address]- Business (1) When: Unknown Comments:Call for followup appointment [facility] [phone] NotePatient Education Custom Cystoscopy ??? Voiding after [...] if you have a fever over 100 degrees.[facility] 09-30-2024 Hospital Discharge instructions Patient Education 09/30/2024 [...] Follow these instructions at home: Medicines Take fehs-oyd-mkuaorf and prescription medicines only as told by [...] or the blood stops without treatment. Take omlu-cyn-ozhjaqq and prescription medicines only as told by your health care provider. Drink enough fluid to keep your urine pale yellow. This information is not intended to replace advice given to you by your health care provider. Make sure you discuss any questions you have with your health care provider. Document Revised: 06/06/2021 Document Reviewed: 06/06/2021 Immunity Project Patient Education 2023 [employer]. Follow Up Care 09/22/2024 13:37:34 With:JOHNNY VENTURA, GILDA Whiteside, URL Address: [address] [place] [address]. [place] [address] When: Unknown [facility] 12-12-2024 NotePatient Education Urology Hematuria, Adult Hematuria [...] these instructions at home: Medicines ??? Take txka-eyi-dqbgtxn and prescription medicines only as told by [...] the blood stops without treatment. ??? Take njct-rjx-jefoups and prescription medicines only as told by your health care provider. ??? Drink enough fluid to keep your urine pale yellow. This information is not intended to replace advice given to you by your health care provider. Make sure you discuss any questions you have with your health care provider. Document Revised: 06/06/2021 Document Reviewed: 06/06/2021 Immunity Project Patient Education ? 2023 [employer].[facility] 06-06-2023 Evaluation + Plan note Diagnostic Tests Pending * Chlam/GC/Trich,GRISELDA 06/06/23 [facility]05-10-2023 Evaluation + Plan note Diagnostic Tests Pending * RPR with Conf Rfx 02/26/23 * Chlam/GC/Trich,GRISELDA 02/26/23 [facility]07-06-2022 Evaluation note* Encounter Date Diagnosis Assessment Notes [...] Apr,therContact dermatitis home care material was printed [employer] Other Evaluation + Plan note Future Appointments Appointment Date:10/04/2024 01:00:00 PM Scheduled Provider: Location:[facility] Appointment Type:Urology CALL PAT Appointment Date:10/05/2024 02:15:00 PM Scheduled Provider: Location:[facility] Appointment Type:Urology FT Appointment Date:10/07/2024 10:40:00 AM Scheduled Provider:Nancy Blevins Location:[facility] Appointment Type: ER/Hospital Follow Up Diagnostic Tests Pending * Urine Cytology ([facility]) 09/30/24 [facility] evaluation + Plan note Future Appointments Appointment Date:10/04/2024 01:00:00 PM Scheduled Provider: Location:[facility] Appointment Type:Urology CALL PAT FT Appointment Date:10/05/2024 02:15:00 PM Scheduled Provider: Location:[facility] Appointment Type:Urology FT Appointment Date:10/07/2024 10:40:00 AM Scheduled Provider:Nancy Blevins Location:[facility] Appointment Type: ER/Hospital Follow Up [facility] evaluation + Plan note Future Appointments Appointment Date:10/07/2024 10:40:00 AM Scheduled Provider:Nancy Blevins Location:[facility] Appointment Type: ER/Hospital Follow Up [facility] evaluation noteNort Pay-[employer] Other Evaluation note* Diagnosis Onset Date Resolution Status Low back strain acute [facility] Work Phone: Evaluation note* Diagnosis Onset Date Resolution Status Low back strain acuteLow back strainacute [facility] Work Phone: Evaluosuun noteNo assessment information available [facility] Work Phone: History general Narrative - ReportedNosaint john's [facility] [employer] Other Hisyjdi general Narrative - Reported* Type Description Date Medical History hypertension Surgical Historyknee qllfnmp8841Qqmsnzvzurlvsph Historysee above [place] [employer] Other Hospital course Narrative No data available for this section [facility] Dis[facility] No data available for this section [facility] CenterProgress note No data available for this section [facility] CenterReason for referral (narrative)No reason for referral information availableSelect [facility] Work Phone: Summary Purpose Family History Relationship [...] section and content) DATE CREATED AUTHOR 03/09/2020 [facility] DATE CREATED AUTHOR AUTHOR'S ORGANIZ ATION 04/13/2020 [facility] DATE CREATED AUTHOR AUTHOR'S ORGANIZ ATION 10/10/2024 [facility] DATE CREATED AUTHOR AUTHOR'S ORGANIZ ATION 11/23/2024 [facility] REASON FOR VISIT (unrecogniz ed section and [...] BE BASED ON THE PRIMARY CLINICAL RECORDS. [employer] provides no warranty or guarantee of the accuracy or completeness of information in this document.
[2025-09-05] MEDS: AMLODIPINE BESYLATE 5 MG TABLET 2.5 MG PO (17:57)
[2025-09-05] MEDS: ATORVASTATIN CALCIUM 40 MG TABLET PO (21:13)
[2025-09-05 21:47] LABS: Glucose Urine UA >=1000 mg/dL (NEGATIVE)
[2025-09-05 21:59] LABS: Cannabinoid Screen Urine POSITIVE (NEGATIVE); Methamphetamines Screen Urine NEGATIVE (NEGATIVE); Tricyclic Antidepressant Urine NEGATIVE (NEGATIVE)
[2025-09-05 22:03] LABS: Cast Seen? NONE SEEN #/LPF (NONE SEEN); Crystals Seen? None Seen #/HPF (None Seen); Urine Culture Indicated NO
[2025-09-06] VITALS (15 sets, daily range): BP systolic 128–163; BP diastolic 82–123; PULSE 55–100; TEMP 36.4–36.8; O2SAT 93–96
--- NOTE | 2025-09-06 | MR_ITS ---
The [address] [address] Patient Name: JAMAL NICOLE MRN: [id number] date: 1990 Sex: M Assigned Patient Location: [place] Current Patient Location: [place] Accession/Order Number: [id number] Exam Date: 09/06/2025 11:15 Report Date: 09/06/2025 13:30 At the request of: HAJA GARIBAY MD Procedure: MR head/brain wo/w con MRI of the brain with and without IV contrast. Reason for exam: Acute weakness, dizziness. COMPARISON: Stroke workup 09/05/2025 TECHNIQUE: Multisequence, multiplanar imaging of the brain was performed before and after the use of IV contrast. Next FINDINGS: No evidence of restriction diffusion is an diffusion-weighted imaging. No abnormal white matter signal is seen on the T2 and T2 FLAIR images. Posterior fossa appears unremarkable. Intraorbital contents appear unremarkable. No significant paranasal sinus disease. Postcontrast images demonstrate no abnormal enhancement. MR/MR head/brain wo/w con IMPRESSION: No acute process. Impression dictated by: Artis Jay Jr., D.O. 09/06/2025 1:30 PM Dictation Location: [place] [address] Electronically authenticated by: [id number] Y Date: 09/06/2025 13:30
[2025-09-06 05:34] LABS: Hematocrit 45.3 % (42.0-54.0); Hemoglobin 15.9 g/dL (14.0-18.0); Immature Granulocytes Abs Auto 0.02 10^3/uL (0.00-0.03); Immature Granulocytes Pct Auto 0.4 % (0.0-0.5); Lymphocytes Absolute Auto 1.7 10^3/uL (1.2-3.8); Mean Corpuscular HGB Conc 35.1 g/dL (29.9-35.2); Mean Corpuscular Hemoglobin 30.1 pg (25.9-34.0); Mean Corpuscular Volume 85.6 fL (80.0-94.0); Platelet Count 227 10^3/uL (150-450); Red Blood Count 5.29 10^6/uL (4.70-6.10); White Blood Count 5.5 10^3/uL (4.0-11.0)
[2025-09-06 05:54] LABS: Alanine Aminotransferase 76 U/L (16-63); Albumin Globulin Ratio 0.9; Albumin Level 3.4 g/dL (3.4-5.0); Alkaline Phosphatase 131 U/L (46-116); Anion Gap 10.6; Aspartate Amino Transferase 24 U/L (15-37); Blood Urea Nitrogen 12.0 mg/dL (7.0-18.0); Calcium 9.0 mg/dL (8.5-10.1); Carbon Dioxide 28.3 mmol/L (21.0-32.0); Chloride 103 mmol/L (98-107); Estimated GFR (African America >60 (>=60 mL/min/1.73m^2); Estimated GFR (Non-African Ame >60 (>=60 mL/min/1.73m^2); Globulin 3.6 g/dL; Glucose 219 mg/dL (74-106); Potassium 3.9 mmol/L (3.5-5.1); Sodium 138 mmol/L (136-145); Total Protein 7.0 g/dL (6.4-8.2)
[2025-09-06 06:05] LABS: Cholesterol 212 mg/dL (<=200); HDL Cholesterol 33 mg/dL (40-60); Triglycerides 134 mg/dL (<=150); VLDL CHOLESTEROL 26.8 mg/dL
--- NOTE | 2025-09-06 08:40 | CM.NOTE ---
Rounds made with Dr. Landry, discussed plan of care with pt. Pt will have MRI today and treatment for HTN. Pt also will have cardiac echo. PT and OT will evaluate pt for discharge planning. Pt denies dizziness this am. Teleneuro will also consult for further recommendations.
[2025-09-06] MEDS: ASPIRIN 81 MG TABLET.DR PO (09:09)
[2025-09-06] MEDS: AMLODIPINE BESYLATE 5 MG TABLET 2.5 MG PO (09:09)
--- OUTSIDE RECORDS SUMMARY | 2025-09-06 09:17 | XMS_ITS | CCD ---
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 [place] [place] [address], USAHematocrit (Bld) [Volume fraction]45.9 %Jqajfj78.0-50.0The [facility] Hospital - ColumbusComment on above:Performed By: #### [id number] #### [facility] [address] [facility] [place] [address], USAHemoglobin (Bld) [Mass/Vol]15.9 g/eATgppvt25.0-17.0The [facility] - ColumbusComment on above:Performed By: #### 12186 #### [facility] [address] [facility] [place] [place] [address], USAIMMATURE GRANS0.4 %Normal0.0-1.0The [facility] Hospital - ColumbusComment on above:Performed By: #### 60883 #### [facility] [address] [facility] [place] [place] [address], USALymphocytes (Bld) [#/Vol]1.4 10*3/uLNormal1.2-4.0The [facility] - ColumbusComment on above:Performed By: #### 01245 #### [facility] [address] [facility] [place] [place] [address], USALymphocytes/100 WBC (Bld)28.3 %Ktcbhk35.0-45.0The [facility] Hospital - ColumbusComment on above:Performed By: #### 43700 #### [facility] [address] [facility] [place] [place] [address], USAMCH (RBC) [Entitic mass]30.1 tsKagfaz54.0-33.0The [facility] Hospital - ColumbusComment on above:Performed By: #### 75325 #### [facility] [address] [facility] [place] [place] [address], USAMCHC (RBC) [Mass/Vol]34.6 g/oRIueeym49.0-35.0The [facility] Hospital - ColumbusComment on above:Performed By: #### [id number] #### [facility] [address] [place] [address], [facility] CANCER CENTERMCV (RBC) [Entitic vol]86.8 jCTybhsm57.0-98.0The [facility] Hospital - ColumbusComment on above:Performed By: #### 97428 #### [facility] [address] [facility] [place] [address], USAMonocytes (Bld) [#/Vol]0.7 10*3/uLNormal0.1-1.0The [facility] Hospital - ColumbusComment on above:Performed By: #### 56636 #### [facility] [address] [place] [address], QZTGZMKH97.8 %High5.0-12.0The [facility] Hospital - ColumbusComment on above:Performed By: #### 15136 #### [facility] [address] [facility] [place] [address], USANeutrophils/100 WBC (Bld)52.2 %Bzzfif37.0-72.0The [facility] Hospital - ColumbusComment on above:Performed By: #### 51402 #### [facility] [address] [facility] [place] [address], USANucleated RBC/100 WBC (Bld) [Ratio]0 %Normal0-0The [facility] Hospital - ColumbusComment on above:Performed By: #### [id number] #### [facility] [address] [facility] [place] [place] [address], USAPLAT UXS641 10*3/lIBaxqnm469-429Umg [facility] Hospital - ColumbusComment on above:Performed By: #### 25878 #### [facility] [address] [facility] [place] [place] [address], USARBC (Bld) [#/Vol]5.29 10*6/uLNormal4.20-5.70The [facility] Hospital - ColumbusComment on above:Performed By: #### 86402 #### [facility] [address] [place] [address], USAWBC (Bld) [#/Vol]5.06 10*3/uLNormal4.00-10.60The [facility] Hospital - ColumbusComment on above:Performed By: #### 61355 #### [facility] [address] [place] [address], USAPROTHROMBIN TIMEon 28-54-1224NTD Coag (PPP) [Relative time] 0.90 {INR}Low0.91-1.16The [facility] Hospital - ColumbusComment on above: Result Comment: ACCCP RECOMMENDED INR [...] OPTIMAL THERAPEUTIC RANGE. CHEST 1995;108:231S-246S.Performed By: #### 83044, 47142 #### [facility] [address] [place] [address], USAPT Coag (PPP) [Time]12.1 sLow12.3-14.8The [facility] Hospital - ColumbusComment on above:Result Comment: ALL RESULTS MUST BE INTERPRETED WITH RESPECT TO BLOOD DRAWING ARTIFACT OR DILUTION ERROR OF ANTICOAGULANT AT THE TIME OF SAMPLING.Performed By: #### 17099, 56129 #### [facility] [address] [place] [address], [facility] CANCER CENTEROUTSIDE IMAGES FOR CONSULTATIONon 14-31-5992EZGTJYB IMAGES FOR CONSULTATIONSelect Medical Specialty Hospital - [facility] Department of Radiology [address] [place] [id number] Patient Name: EMANUEL PATEL : 1990 Sex: M Age: Race: NA Pt. Location: OUTP Patient Status: D Ordered Date: 03/16/2020 3:25:00 PM Completed Date: 03/16/2020 03:26 PM Requesting Provider: KRISTIE MENODZA Attending Provider: KRISTIE MENDOZA Report Copy To: Signs & Symptoms: Left Knee Pain History: MRI Of Left Knee Images are from [facility] Taken on 10/26/19 Requesting physician Kristie Mendoza Comments: Exam: OUTSIDE IMAGES FOR CONSULTATION OUTSIDE IMAGES FOR CONSULTATION 03/16/2020 3:26 PM OUTSIDE STUDY: MRI of the left knee TECHNIQUE: Outside MRI images of the left knee obtained from [facility] dated October 26, 2019. Image [...] interpretation. Electronically signed: Otilio Evangelista. Transcribed by: [email or web address], User Resident: Electronically Signed by: OTILIO EVANGELISTA @ 03/22/2020 11:28 AMNOhioHealth Doctors HospitalXR LSPINE 2_3 VIEWSon 22-55-0775DD LSPINE 2_3 VIEWSEXAM: XR L-SPINE 2-3 VIEWS [...] Electronically authenticated by: TESS SHAIKH Date: 2020-03-08 01:59[facility] TSPINE 2 VIEWSon 57-08-1355WW TSPINE 2 VIEWSEXAM: XR T-SPINE 2 VIEWS [...] Electronically authenticated by: TESS SHAIKH Date: 2020-03-08 02:09[facility] HospitalXR KNEE LT 4V OR >on 87-67-4989WE KNEE LT 4V OR >Patient: EMANUEL PATEL Exam Date: 09/21/2019 : 1990 Gender:M Ordering : DR LIVE KNUTSON Admission #: [id number] Family : DR MICHAEL HOGUE . Order #: [id number] CLICK HERE TO VIEW EXAM RADIOLOGY REPORT [...] by: Moe Palma M.D. on 09/21/2019 at 22:26[facility] Vital Signs Date TimeVital SignValuePerforming WzqtyojicSadzeror51-05-2744 16:13-0400Body zsocdr461.18 cmMichael Hogue MD Work Phone: [phone])[address]07-14-2025 16:13-0400 Body mass index (BMI) [Ratio]47.7 kg/m2Michael Hogue MD Work Phone: [phone]07-14-2025 16:13-0400 Body bdqtwojcrvg61 [degF]Michael Hogue MD Work Phone: [phone])[address]07-14-2025 16:13-0400 Body bjiigj106.34 kgMichael Hogue MD Work Phone: [phone])[address]07-14-2025 16:13-0400 Diastolic blood jzszimzl061 mm[Hg]Michael Hogue MD Work Phone: [phone])[address]07-14-2025 16:13-0400 Heart rate88 /minMichael Hogue MD Work Phone: 1(390)[address]07-14-2025 16:13-0400 Respiratory rate18 /Hugo Hogue MD Work Phone: [phone])[address] [place], [place] 2824407-14-2025 16:13-0400 SaO2% (BldA) [Mass fraction]95 %Michael Hogue MD Work Phone: [phone])[address] [place], [place] 2824407-14-2025 16:13-0400 Systolic blood hkqdbpne335 mm[Hg]Michael Hogue MD Work Phone: 1(959)[address] [place], [place] 2824406-03-2025 12:16-0400 Diastolic blood eonukaly724 mm[Hg]Michael Hogue MD Work Phone: 1(563)[address] [place], [place] 2824406-03-2025 12:16-0400 Systolic blood gbiaboyy604 mm[Hg]Michael Hogue MD Work Phone: 1(678)[address] [place], [place] 2824406-03-2025 11:59-0400 Body uxxbzp227.18 [facility]06[facility]20[facility] 11:59-0400Body mass index (BMI) [Ratio]47.7 kg/v7OkvugdojoGreene Memorial Hospital06-03-2025 11:59-0400Body bzjermukqiu50.3 [degF][facility]06-03-2025 11:59-0400Body xsyxdb468.34 kgGreene Memorial Hospital06-03-2025 11:59-0400Diastolic blood sorikdqr833 mm[Hg][facility] 03-22-2025 11:59-0400Heart rate87 /[facility] 03-22-2025 11:59-0400Respiratory rate16 /[facility] 03-22-2025 11:59-9946HxW1% (BldA) [Mass fraction]97 %[facility]06-03-2025 11:59-0400Systolic blood vyaproqy402 mm[Hg][facility]12-12-2024 13:37-0500Blood Pressure LocationJEUN[facility]12-12-2024 13:37-0500Diastolic blood mzenuprm439 mm[Hg]GILDA TURNER [facility]12-12-2024 13:37-0500Heart rate86 /minJENNIFER JOHNNY [facility]12-12-2024 13:37-0500Systolic blood mm[Hg]GILDA TURNER [facility]07-31-2024 14:05-0400Body tkwxel553.18 cmGreene Memorial Hospital07-31-2024 14:05-0400Body mass index (BMI) [Ratio]44.1 kg/c8AqnggfwniGreene Memorial Hospital07-31-2024 14:05-0400Body uhuhivtdccv67.1 [degF][facility]07-31-2024 14:05-0400Body vsxjeh365 kgGreene Memorial Hospital07-31-2024 14:05-0400Diastolic blood zjqzpeld978 mm[Hg][facility]07-31-2024 14:05-0400Heart rate92 /[facility]07-31-2024 14:05-0400Respiratory rate18 /[facility]07-31-2024 14:05-4142JwE1% (BldA) [Mass fraction]98 %[facility]07-31-2024 14:05-0400Systolic blood azuwrclt581 mm[Hg] [facility]07-29-2024 15:35-0400Body ppvwte049.18 cm [facility]07-29-2024 15:35-0400Body mass index (BMI) [Ratio]44.1 kg/h5MhafhzzauGreene Memorial Hospital07-29-2024 15:35-0400Body ejjvpoawngo85.4 [degF][facility]07-29-2024 15:35-0400Body uplmbh694.02 kgGreene Memorial Hospital07-29-2024 15:35-0400Heart rate 88 /[facility]07-29-2024 15:35-0400Respiratory rate18 /[facility]07-29-2024 15:35-7165QvR1% (BldA) [Mass fraction]98 %[facility]07-06-2022 14:40-0400Body height 170.18 cmPjuanjo Lobo Other [employer] Other 07-06-2022 14:40-0400Body mass index (BMI) [Ratio] 42.75 kg/v6Xvbngdnitish Lobo Other [employer] Other 07-06-2022 14:40-0400Body iydgfpkrfsr22.5 [degF]Cassie Lashell Other [employer] Other 07-06-2022 14:40-0400Body bahovo844.83 kgCassie Lobo Other [employer] Other 07-06-2022 14:40-0400Diastolic blood eisqdlnz76 mm[Hg] Cassie Lashell Other [employer] Other 07-06-2022 14:40-0400Respiratory rate18 /Buzz Lobo Other [employer] Other 07-06-2022 14:40-4401TpV9% (BldA) [Mass fraction]97 % Cassie Lashell Other [employer] Other 07-06-2022 14:40-0400Systolic blood dgniuwvl522 mm[Hg] Cassie Lobo Other nort [employer] Other 12-16-2021 14:45-0500Body xekpqn636.18 cmSuzma Arce Other [employer] Other 12-16-2021 14:45-0500Body mass index (BMI) [Ratio] 45.42 kg/l6Oxuwuhtkn Claude Other [employer] Other 12-16-2021 14:45-0500Body mljsjauyocl42.7 [degF] Mahnaz Claude Other [employer] Other 12-16-2021 14:45-0500Body .54 kgStmolina Claude Other [employer] Other 12-16-2021 14:45-0500Respiratory rate18 /minSuzma Claude Other [employer] Other 12-16-2021 14:45-9250HpD5% (BldA) [Mass fraction]97 % Mahnaz Claude Other [employer] Other Encounters Encounter DateEncounter TypeCare ProviderFacilityStart: 05-02-2025 End: 96-59-0787wixrwukfbqUdl E Knight MD Work Phone: [facility] Work Phone: Start: 05-02-2025 End: 37-64-4919Jinmthr encounter procedureAmanbaldemar Johnson [employer]-[facility] Work Phone: Start: 03-22-2025 End: 40-26-3565vfiythjzklDurjyikpbKettering Health [facility] Work Phone: Start: 03-22-2025 End: 87-41-7943Ujotngn encounter procedureCounts Include [address] [facility] Work Phone: Start: 10-07-2024 End: 21-72-0937oshtbsyljiVbds L SchwabFacility:FT [facility] BellevueStart: 10-05-2024 End: 22-95-3112ipgwklplkjPzytajo R WATERSFacility:FTMCStart: 10-05-2024 End: 11-48-3757Ibspsac encounter procedurePatrick R SELLERS [facility] Start: 09-30-2024 End: 21-09-7583sskxsyuhvfGODRRLRY E PERRYFacility:FTMCStart: 09-30-2024 End: 87-63-9374Lyq Drop offJENNIFER E JOHNNY [facility] Start: 09-30-2024 End: 31-44-4352yuengkbbrvXZAMFMQN E PERRYFacility:EU evueStart: 09-30-2024 End: 49-15-2504Nxpgrki encounter procedureJENNIFER E JOHNNY [facility] start: 37-49-7491nulnsjulduZuvm SchwabFacility:EU [place]kyStart: 05-20-2024 End: 20-65-0721ffgkmupvrnHfid L SchwabFacility:FT [facility] BellevueStart: 05-19-2024 End: 25-21-0605agakuicadqJuwqlshhfKettering Health [facility] Work Phone: Start: 05-19-2024 End: 21-52-7795Yucmecx encounter procedureCounts Include 234 [facility] Work Phone: Start: 05-17-2024 End: 26-18-0478gqppckxvzjQnglvncjkKettering Health [facility] Work Phone: Start: 05-17-2024 End: 97-32-7338Ztsggci encounter procedureCounts Include 234 [facility] Work Phone: Start: 02-20-2024 End: 50-65-1064Cmh Drop offJodi L Steve [facility] Start: 02-20-2024 End: 77-66-8091eoritztyuhIpmh L SchwabFacility:FTMCStart: 06-06-2023 End: 18-36-5436Ace Drop offJodi L Steve [facility] Start: 02-26-2023 End: 35-59-8443Wjo Drop offJodi L Steve [facility] Start: 04-24-2022 End: 79-44-6766juqacxslnyTzwiny Lashell Other [employer] Other Start: 00-19-6335Dvfeqk outpatient visit 15 minutes Cassie LoboFPG Urgent Care ClydeStart: 10-04-2021 End: 25-47-7603ocjydqayqwUbhhogifd Breault Other [employer] Other Start: 57-23-9274Nxnkah outpatient visit 15 minutes Mahnaz ArceFPG [facility]gent Care ClydeStart: 04-04-2020 End: 07-26-6710Hdydhwz encounter procedureNABIL EBRAHEIMFacility:UTMCStart: 03-07-2020 End: 48-89-9397Oexxush encounter procedureCHRISTOPHER FRIDRICHFacility:F1Mmqdu: 09-21-2019 End: 17-21-8975Izmdwrt encounter procedureJOHN PARENTEFacility:H1 Procedures DateProcedureProcedure DetailPerforming ClinicianStart: 79-95-4324KVYSZM KNEE JOINT SURGERYSHLIFECARE [facility] BHATTStart: 58-57-2175HPXC ARTHROSCOPY/SURGERYNABIL RICKYRAHEIM Arthroscopy of kneeNancy Wilson Comment on above:2019Loss of teeth due to extraction (disorder)Nancy Wilson Comment on above:2 extractedRefusal of treatment by patientRefuses treatmentNancy Wilson Plan of Treatment DateCare ActivityDetailAuthorPatient EducationLow Back Pain (DC)[facility] Work Phone: [facility] Immunizations Immunization DateImmunizationNotesCare ProviderFacilityNEGATED: Highlighted row has not occurred!35-61-0772YEWS-CoV-2 mRNA (tozinameran 5y-11y) vaccineNancy Wilson [phone]-XedlkFisher-[facility] DatePayer CategoryPayerPolicy [id number] Health [id number] 2..1.355030.3.579.[id number] 2..1.167896.3.57[id number] 2..1.683945.3.57[id number] 2..1.045697.3.579.2.69126-81-4997Wdnjuyj45402504 2..1.560122.3.579.2.73478-14-8737Mohqhmh90963503 2..1.172356.3.579.[id number] 2..1.497622.3.57[id number] 2.0.1.031573.3.579.2.77251-77-2055Zosautv74069623 2.840.1.589821.3.579.2.59470-99-2942Tjszazd60151608 2..1.916616.3.579.2.52560-41-9338Egid-srt09-07-1069Yjxrdtb302101359820 Private Health [id number] 2..1.273843.19UnknownUnknown 6t19p5r7-3hjs-74vw-d945-2b9cfm9n7i72 2..1.413131.19UnknownDEFMEADOWS PSYCHIATRIC CENTER HEALTH [id number] Social History DateTypeDetailFacilityUnknown if ever smokedNocitizens memorial healthcare [employer] Other Sex Assigned At [facility] TobaccoCurrent vaping or e-cigarette use Smokeless Tobacco Use:. VapingWilson HealthTobacco smoking statusNo Smoking Status [facility] Hospitaltart: 05-17-2024 End: 43-87-3359Lvynkpo smoking status NHISNever smoked tobacco (finding) [facility]ightart: 87-41-9895Ygg Assigned At [facility] HospitalTobacco smoking statusEx-smoker (finding) [facility] BellevueStart: 71-06-4679Wcy Male (finding)[facility] Glenbeightart: 87-47-0864Aqqkszt smoking status NHISUnknown if ever smokedGreene Memorial Hospital Functional Status YrgkVmybquipcnHugetlIsssuooc30-60-1740Jomyuqhwio StatusN/AFisher St. Agnes HospitalDxddzh86-67-1850Euphuddbon StatusN/AExec[facility] Diomedes Clinical Notes 04-24-2022 to 03-22-2025 Note Date & PkkgFkkbBgzlbjia40-30-1592 Evaluation note* Diagnosis Onset Date Resolution Status Admit Date High blood pressure noneactiveJune 2024 11:56amContact dermatitisnoneactiveJune 2024 11:56am [facility] Work Phone: [phone] Hospital Discharge instructions Patient Education 10/05/2024 14:14:15 [...] Up Care 09/30/2024 15:39:46 With:Avery SELLERS Address: [address] [place], [place] [address]- Business (1) When: Unknown Comments:Call for followup appointment [facility] [phone] NotePatient Education Custom Cystoscopy ??? Voiding after [...] if you have a fever over 100 degrees.[facility] 09-30-2024 Hospital Discharge instructions Patient Education 09/30/2024 [...] Follow these instructions at home: Medicines Take pjai-ktv-deyhkjl and prescription medicines only as told by [...] or the blood stops without treatment. Take zona-bco-ldceqiv and prescription medicines only as told by your health care provider. Drink enough fluid to keep your urine pale yellow. This information is not intended to replace advice given to you by your health care provider. Make sure you discuss any questions you have with your health care provider. Document Revised: 06/06/2021 Document Reviewed: 06/06/2021 VISUAL NACERT Patient Education 2023 [employer]. Follow Up Care 09/22/2024 13:37:34 With:JOHNNY VENTURA, GILDA Whiteside, URL Address: [address] [place] [address]. [place] [address] When: Unknown [facility] 12-12-2024 NotePatient Education Urology Hematuria, Adult [...] these instructions at home: Medicines ??? Take jnor-ajr-aybxrwd and prescription medicines only as told by [...] the blood stops without treatment. ??? Take zvme-cqt-zmfylbl and prescription medicines only as told by your health care provider. ??? Drink enough fluid to keep your urine pale yellow. This information is not intended to replace advice given to you by your health care provider. Make sure you discuss any questions you have with your health care provider. Document Revised: 06/06/2021 Document Reviewed: 06/06/2021 VISUAL NACERT Patient Education ? 2023 [employer].[facility] 06-06-2023 Evaluation + Plan note Diagnostic Tests Pending * Chlam/GC/Trich,GRISELDA 06/06/23 [facility]05-10-2023 Evaluation + Plan note Diagnostic Tests Pending * RPR with Conf Rfx 02/26/23 * Chlam/GC/Trich,GRISELDA 02/26/23 [facility]07-06-2022 Evaluation note* Encounter Date Diagnosis Assessment Notes [...] Apr,therContact dermatitis home care material was printed [employer] Other Evaluation + Plan note Future Appointments Appointment Date:10/04/2024 01:00:00 PM Scheduled Provider: Location:[facility] Appointment Type:Urology CALL PAT Appointment Date:10/05/2024 02:15:00 PM Scheduled Provider: Location:[facility] Appointment Type:Urology FT Appointment Date:10/07/2024 10:40:00 AM Scheduled Provider:Nancy Blevins Location:[facility] Appointment Type: ER/Hospital Follow Up Diagnostic Tests Pending * Urine Cytology ([facility]) 09/30/24 [facility] evaluation + Plan note Future Appointments Appointment Date:10/04/2024 01:00:00 PM Scheduled Provider: Location:[facility] Appointment Type:Urology CALL PAT FT Appointment Date:10/05/2024 02:15:00 PM Scheduled Provider: Location:[facility] Appointment Type:Urology FT Appointment Date:10/07/2024 10:40:00 AM Scheduled Provider:Nancy Blevins Location:[facility] Appointment Type: ER/Hospital Follow Up [facility] evaluation + Plan note Future Appointments Appointment Date:10/07/2024 10:40:00 AM Scheduled Provider:Nancy Blevins Location:[facility] Appointment Type: ER/Hospital Follow Up [facility] evaluation noteNort [employer] Other Evaluation note* Diagnosis Onset Date Resolution Status Low back strain acute [facility] Work Phone: Evaluation note* Diagnosis Onset Date Resolution Status Low back strain acuteLow back strainacute [facility] Work Phone: Evalueqkhu noteNo assessment information available [facility] Work Phone: History general Narrative - ReportedNocitizens memorial healthcare [employer] Other Hisxihf general Narrative - Reported* Type Description Date Medical History hypertension Surgical Historyknee aqfquib9336Gpcjihkzirpbnhz Historysee above [place] [employer] Other Hospital course Narrative No data available for this section [facility] Dis[facility] instructions No data available for this section [facility] HealthProgress note No data available for this section [facility] HealthReason for referral (narrative)No reason for referral information availableLouis Stokes [facility] Work Phone: Summary Purpose Family History Relationship [...] section and content) DATE CREATED AUTHOR 03/09/2020 [facility] DATE CREATED AUTHOR AUTHOR'S ORGANIZ ATION 04/13/2020 [facility] DATE CREATED AUTHOR AUTHOR'S ORGANIZ ATION 10/10/2024 [facility] DATE CREATED AUTHOR AUTHOR'S ORGANIZ ATION 11/23/2024 [facility] REASON FOR VISIT (unrecogniz ed section [...] BE BASED ON THE PRIMARY CLINICAL RECORDS. [employer] provides no warranty or guarantee of the accuracy or completeness of information in this document.
--- NOTE | 2025-09-06 09:46 | PM.HP ---
HPI H&P: HPI History of Present Illness Chief complaint: BALANCE IS OFF DIZZINESS, CENTRAL VERTIGO Narrative: Mr. Patel is a 35-year-old gentleman with a known diagnosis of hypertension. Does not take medication for it. Patient came in with 48 hours history of spinning sensation. Transient double vision for less than 15 minutes. Occipital headaches. No slurred speech. No confusion or disorientation. No focal weakness or numbness. No prior history of stroke. Opioid HPI Opioid Management Most Recent Pain and Opioid Data: Last Pain Scale 8 08/04/23, 22:20 Last Pain Assessment Today, 09:10 Last ORT Total Score 5 09/05/25, 16:02 Last ORT Risk Category Moderate Risk 09/05/25, 16:02 Ur Phencyclidine Scrn, (NEGATIVE) Negative 09/05/25, 21:31 Review of Systems ROS Status of ROS 10 or more systems reviewed and unremarkable except as noted in history and below PFSH PFSH Medical History (Updated 09/05/25 @ 14:56 by Laurie Rausch RN) Knee arthropathy ?M17.10 - Unilateral primary osteoarthritis, unspecified knee (ICD-10) Hypertension ?I10 - Essential (primary) hypertension (ICD-10) Surgical History (Updated 09/05/25 @ 17:35 by Aida Frey RN) History of arthroscopic knee surgery ?Z98.890 - Other specified postprocedural states (ICD-10) Family History (Updated 09/05/25 @ 15:38 by Aida Frey RN) Father Family history of diabetes mellitus Family history of myocardial infarction Mother Family history of hypertension Grandfather Family history of myocardial infarction Family history of stroke Uncle Family history of cancer Social History (Updated 09/05/25 @ 15:40 by Aida Frey RN) Within the past year, how often did you have a drink containing alcohol: monthly or less Smoking status: Current every day smoker Do you use any of these nicotine containing products: smokeless tobacco Non-prescribed substance use: cannabis (any form) Highest level of school completed/degree received: high school graduate Little interest or pleasure in doing things: not at all Feeling down, depressed, or hopeless: not at all Meds Home Medications and Allergies Home Medications ?Medication ?Instructions ?Recorded ?Confirmed ?Type magnesium 200 mg tablet 200 mg PO DAILY 09/21/24 09/05/25 History cephalexin 500 mg capsule 500 mg PO Q6H 09/05/25 09/05/25 History Allergies Allergy/AdvReac Type Severity Reaction Status Date / Time No Known Drug Allergies Allergy Verified 09/21/24 18:41 Exam Narrative Exam Narrative: [pt is awake and alert. oriented to place, time and person, morbidly obese HEENT: [place] conjunctiva and NL buccal mucosa Neck: Supple, no tenderness Endocrine: No Thyromegaly. Vascular: No JVD or carotid bruit. Lymphatic: No cervical lymphadenopathy. Chest: CTA no DTP. Heart RRR, no extra sound or murmur. Abd: Soft, no tenderness, no rebound and no rigidity. Increase abd girth therefore clinically I could not exclude the possibility of intra abd mass or organomegaly. LE: No cyanosis or clubbing, no varices or edema. Neuro: A A O. Nl speech, comprehension and attention. Nl and symetrical motor and tone examination through out. Patient does have horizontal nystagmus. Normal speech, normal focus, normal complex hydration, symmetrical facial musculature. No dysarthria, no ataxia, normal fine movement. []] Constitutional Vital Signs, click to edit/add: Last Vital Signs Temp 97.6 F 09/06/25 08:24 Pulse 94 H 09/06/25 08:24 Resp 18 09/06/25 08:24 BP 163/123 H 09/06/25 08:24 Pulse Ox 95 09/06/25 08:24 O2 Del Method Room Air 09/06/25 08:24 Results Labs Labs: Short CBC 09/05/25 09/06/25 Range/Units 12:55 05:25 WBC 4.7 5.5 (4.0-11.0) 10^3/uL Hgb 16.2 15.9 (14.0-18.0) g/dL Hct 46.0 45.3 (42.0-54.0) % Plt Count 219 227 (150-450) 10^3/uL BMP 09/05/25 09/06/25 12:55 05:25 Sodium 137 138 Potassium 3.9 3.9 Chloride 102 103 Carbon Dioxide 29.8 28.3 BUN 10.0 12.0 Creatinine 0.72 0.72 Glucose 191 H 219 H Calcium 8.5 9.0 Liver Function 09/05/25 09/06/25 Range/Units 12:55 05:25 Total Bilirubin 0.5 0.6 (0.2-1.0) mg/dL Direct Bilirubin 0.1 (0.0-0.2) mg/dL AST 24 24 (15-37) U/L ALT 77 H 76 H (16-63) U/L Alkaline Phosphatase 139 H 131 H (46-116) U/L Albumin 3.7 3.4 (3.4-5.0) g/dL Urine 09/05/25 Range/Units 21:31 Urine Color Yellow (YELLOW) Urine Clarity Clear (CLEAR) Urine pH 6.0 (5.0-9.0) Ur Specific [place] 1.020 (1.005-1.025) Urine Protein 30 A (NEG/TRACE) mg/dL Urine Glucose (UA) >=1000 A (NEGATIVE) mg/dL Assessment and Plan Assessment and Plan (1) Hypertensive emergency: (2) Stroke-like symptom: Plan Hypertensive urgency Suspect hypertensive encephalopathy manifested by spinning sensation and transient double vision. Probable TIA. Patient has multiple risk factors for cerebrovascular disease. In addition, patient stated that he smokes marijuana heavily. I suspect that he could have had marijuana toxicity and/or toxic encephalopathy. CT head is negative for acute intracranial process CTA of the head and neck is negative for major vessel occlusion or dissection or thrombosis I started patient on aspirin and statin. I requested MRI of the brain. I requested echocardiogram rule out embolization. Telemetry monitoring rule out cardiac dysrhythmia Started patient on amlodipine 2.5 mg daily and lisinopril 10 mg daily for hypertension. Continue to titrate BP meds in the outpatient setting to achieve optimal control Diabetes, newly diagnosed Fasting blood sugar is 219. A1c is 8.1. Start patient on metformin and Amaryl. I requested diabetes education consult for diabetes ads. Counseling about obesity and the need to lose weight Obesity Diet, exercise and lifestyle modification. This will need to continue in the outpatient setting to reduce his cardiovascular risk Slight elevation of the liver transaminase. This could be caused by fatty infiltration of the liver due to his obesity and undiagnosed diabetes Otherwise broad differential diagnosis including viral, autoimmune, neoplastic and/or infiltrative liver disease. This will need to be monitored and investigated further. Could be completed in the outpatient setting. Marijuana use. Counseling and education to quit marijuana less prescribed for medical reason. Certainly avoid excessive use.
[2025-09-06] MEDS: GLIMEPIRIDE 2 MG TABLET PO (10:31)
[2025-09-06] MEDS: LISINOPRIL 10 MG TABLET PO (10:32)
[2025-09-06] MEDS: ENOXAPARIN SODIUM 40 MG/0.4 ML SYRINGE SUBQ ×2 (10:32→21:25)
[2025-09-06] MEDS: DIAZEPAM 5 MG TABLET PO (10:34)
--- NOTE | 2025-09-06 10:58 | XR_ITS ---
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 AP and lateral views were obtained. No radiopaque orbital foreign bodies are identified. The imaged paranasal sinuses and mastoid air cells are clear. XR/XR foreign body eye MAURICE IMPRESSION: NO RADIOPAQUE ORBITAL FOREIGN BODIES. Impression dictated by: Donna Houston M.D. 09/06/2025 11:22 AM Dictation Location: [place] [address] Electronically authenticated by: [id number] Y Date: 09/06/2025 11:22
--- NOTE | 2025-09-06 11:16 | CM.NOTE ---
CM in to speak with pt regarding diabetes elevated A1c. Pt states he has not been to PCP for several years. Pt does state he feels as his sugar is elevated at times. Pt states his dad was diabetic and has since . Pt states he has been trying to be more active and aware of his diet since his dad recently . Pt given education material and faxed information to [facility] for diabetic education. CM also spoke with intensive care anaesthetist to see pt for diet management. Pt also verbalizes he has been concerned about sleep apnea. Pt states he awakens several times throughout the night. CM encouraged pt to speak with PCP in regards to elevated A1C and outpatient sleep study. Pt verbalizes understanding. Pt will have PCP appointment scheduled prior to discharge. Update given to Dr. Landry regarding [facility] diabetic education and pt's concern for need to have sleep study.
--- NOTE | 2025-09-06 11:43 | SWNOTE1 ---
SW reviewed PT/OT notes and no services recommended at discharge. SW to follow as needed.
[2025-09-06] MEDS: INSULIN ASPART 300 UNIT/3 ML PEN SUBQ ×3 (12:52→21:25)
--- NOTE | 2025-09-06 17:03 | CA_ITS ---
Patient Name: JAMAL NICOLE MR#: [id number] : 1990 Exam Date: 09/06/2025 Ordering Doctor: HAJA GARIBAY ECHOCARDIOGRAM REPORT PROCEDURE: CA ECHO DOPPLER COMPLETE INDICATIONS: TIA, hypertension COMPARISON: None. DESCRIPTION: COMPLETE ECHOCARDIOGRAM Real-time transthoracic echocardiography with 2D, M-mode, spectral and color flow Doppler performed. QUALITY: Technical quality was adequate. LEFT VENTRICLE: Normal chamber size. Mild concentric left ventricular hypertrophy. LV EF: Global ventricular systolic function is normal; visually estimated ejection fraction is 55 to 60%. No significant wall motion abnormalities. DIASTOLIC: Grade 1 diastolic dysfunction. ATRIAL SEPTUM: Inadequately seen. LEFT ATRIUM: Normal chamber size. RIGHT ATRIUM: Normal chamber size. RIGHT VENTRICLE: Normal chamber size. Normal right ventricular systolic function. TRICUSPID VALVE: Normal mobility and thickness. No stenosis with no regurgitation. Unable to assess right-sided pressures due to lack of significant tricuspid regurgitation. MITRAL VALVE: Normal mobility and thickness. No evidence of mitral valve stenosis. There is no mitral annular calcification. No mitral regurgitation. AORTIC VALVE: Normal trileaflet appearance. No visible sclerosis. Normal leaflet mobility. No evidence of aortic valve stenosis. No aortic regurgitation. AORTIC ROOT: Normal diameter and appearance. PULMONIC VALVE: Normal thickness and mobility. No stenosis. No regurgitation. PERICARDIUM: Anterior free space; trivial effusion versus fat pad. IVC: Not well visualized. CONCLUSION: 1. Global left ventricular systolic function is normal; visually estimated ejection fraction is 55 to 60% 2. Normal right ventricular size and systolic function 3. Mild left ventricular hypertrophy 4. Grade 1 diastolic dysfunction 5. No significant valvular abnormalities Adult Echocardiography Procedure Report Left Ventricle LVEDD (3.7 - 5.6 cm): 4.44 cm LVESD (2.2 - 4.0 cm): 3.30 cm LVIVS thickness (0.6 - 1.2 cm): 1.18 cm LVPW thickness (0.5 - 1.0 cm): 1.32 cm e': 0.07 m/s E - e': 8.63 LVOT Max Gradient: 1.40 mm[Hg] LVOT Area (cm2): 0.59 m/s Peak Velocity (LVOT): 0.59 m/s Mean Velocity (LVOT): 0.41 m/s LVOT Diameter 2.50 cm Left Ventricular Ejection Fraction: 53.65 % Left Atrium LA Volume Index (2D A2C): 21.49 ml/m2 Left Atrium Systolic Dimension: 4.24 cm Mitral Valve MV E to A Ratio: 1.03 Mitral Valve A-Wave Peak Velocity: 0.58 m/s Mitral Valve E-Wave Peak Velocity: 0.60 m/s Right Ventricle Aorta AO Root Diam: 3.63 cm Aortic Valve AoV Area ([place]): 3.06 cm2, 3.06 cm2 AoV Area (VTI): 3.27 cm2, 3.27 cm2 Peak Velocity(Antegrade Flow): 0.95 m/s Peak Gradient(Antegrade Flow): 3.60 mm[Hg] Mean Velocity(Antegrade Flow): 0.65 m/s Mean Gradient(Antegrade Flow): 1.93 mm[Hg] Velocity Time Integral: 15.81 cm Tricuspid Valve Pulmonic Valve Mean Gradient: 1.37 mm[Hg], 2.24 mm[Hg] Mean Velocity: 0.54 m/s, 0.68 m/s Peak Velocity: 0.99 m/s Peak Gradient: 3.00 mm[Hg], 4.92 mm[Hg] Right Atrium Right Atrium Systolic Pressure: 31.68 ml, 31.68 ml Dictated by: Timothy Ahmadi M.D. on 09/06/2025 at 14:50 Approved by: Timothy Ahmadi M.D. on 09/06/2025 at 14:59
[2025-09-06] MEDS: METFORMIN HCL 500 MG TABLET PO (17:09)
[2025-09-06] MEDS: ATORVASTATIN CALCIUM 40 MG TABLET PO (21:25)
[2025-09-07] VITALS: BP 157/80
[2025-09-07 04:00] VITALS: BP 126/82; PULSE 74; TEMP 36.9; O2SAT 94
[2025-09-07 08:00] VITALS: BP 148/90; PULSE 87; TEMP 36.6; O2SAT 96
[2025-09-07] MEDS: METFORMIN HCL 500 MG TABLET PO (09:03)
[2025-09-07] MEDS: GLIMEPIRIDE 2 MG TABLET PO (09:03)
[2025-09-07] MEDS: AMLODIPINE BESYLATE 5 MG TABLET 2.5 MG PO (09:03)
[2025-09-07] MEDS: LISINOPRIL 20 MG TABLET PO (09:04)
[2025-09-07] MEDS: ASPIRIN 81 MG TABLET.DR PO (09:04)
--- NOTE | 2025-09-07 09:15 | CM.NOTE ---
Rounds made with Dr. Landry, pt will discharge to home. Discussed discharge medications, new diagnosis of diabetes. Pt verbalizes importance of diet and exercise. Pt is also aware [facility] will call him to schedule education appointment. CM back in to see pt, pt given script for glucometer, lancets, strips, and alcohol swabs. Pt also provided with work slip. Pt given written information and education on diabetes.
--- NOTE | 2025-09-07 09:35 | PM.DS1 ---
DS: Providers Provider Date of admission: 09/05/25 15:48 Primary care physician: NANCY WILSON Consults: 09/05/25 13:11 Consult to Telestroke Routine Reason for consultation: stroke like symptoms 09/05/25 16:56 Occupational Therapy Eval and Treat Routine Reason for consultation: TIA Physical Therapy Eval and Treat Routine Reason for consultation: TIA 09/05/25 17:06 Consult to TeleNeurology Routine Reason for consultation: TIA 09/06/25 09:43 Consult to Oil Heat Technician Routine Reason for consultation: Diabetes teaching DS: Diagnosis Discharge Diagnosis (1) Hypertensive emergency: (2) Stroke-like symptom: Plan As listed above, below and others that are not listed DS: Summary Hospital Course Hospital Course: Mr. Patel is a 35-year-old gentleman who came in with headaches, spinning sensation and transient double vision. He was found to have the following: Hypertensive urgency Hypertensive and toxic encephalopathy Suspect hypertensive encephalopathy manifested by spinning sensation and transient double vision. Probable TIA. Patient has multiple risk factors for cerebrovascular disease. In addition, patient stated that he smokes marijuana heavily. I suspect that he could have had marijuana toxicity and/or toxic encephalopathy. CT head is negative for acute intracranial process CTA of the head and neck is negative for major vessel occlusion or dissection or thrombosis I started patient on aspirin and statin. I requested MRI of the brain. MRI does not show any acute intracranial process I requested echocardiogram rule out embolization. Echocardiogram does not show any cardiomyopathy or significant valvular disease other than grade 1 diastolic dysfunction. Telemetry monitoring rule out cardiac dysrhythmia. Telemetry monitoring does not show any cardiac dysrhythmia Started patient on amlodipine 2.5 mg daily and lisinopril 10 mg daily for hypertension. Lisinopril was increased to 20 mg daily for better blood pressure control Patient will be discharged home on aspirin 81 mg daily as well as statin to reduce his risk having a cardiovascular disease. Continue to titrate BP meds in the outpatient setting to achieve optimal control. Hyperlipidemia Given his multiple cardiovascular risk I started patient on Lipitor. Patient has slight elevation of the transaminase. I requested hepatitis panel which came back negative. Patient may have steatohepatitis given his obesity and hyperlipidemia and diabetes Is transaminase elevation is less than double fold. The benefit of statin outweighs risk. I would recommend frequent monitoring of his liver enzymes while he is on a statin. Diabetes, newly diagnosed Fasting blood sugar is 219. A1c is 8.1. Start patient on metformin and Amaryl. Patient will likely not be compliant with insulin. He mentioned that he may not take his diabetes medications either I requested diabetes education consult for diabetes ads. Counseling about obesity and the need to lose weight Patient may be perfect candidate for GLP-1 but reluctant to consider taking it due to potential side effect that he is reading online. Patient was instructed to do the following Check your blood sugar 3 times a day before meals. Document these numbers on a blood glucose log and bring them with you to your follow-up appointment with your primary care doctor. Communicate with your primary care doctor or military personnel specialist if your blood sugar is under 100 or above 300 on 2 consecutive checks. Communicate with your primary care doctor or military personnel specialist if you have any questions about your diabetes medications. Signs of a low blood sugar include sweating, racing heart, dizziness and/or weakness. Check your blood sugar if you have any of the symptoms. Obesity Diet, exercise and lifestyle modification. This will need to continue in the outpatient setting to reduce his cardiovascular risk Patient will be perfect for GLP-1 for diabetes and weight loss. Patient is reluctant to take it because of potential side effect that he is reading online. Slight elevation of the liver transaminase. This could be caused by fatty infiltration of the liver due to his obesity and undiagnosed diabetes Otherwise broad differential diagnosis including viral, autoimmune, neoplastic and/or infiltrative liver disease. Viral hepatitis panel is negative Elevation of the transaminases is less than double fold. Benefit in his situation of statin outweighs the risk however I recommend frequent monitoring of his LFTs to be done in the outpatient setting by PCP This will need to be monitored and investigated further. Could be completed in the outpatient setting. Marijuana use. Counseling and education to quit marijuana less prescribed for medical reason. Certainly avoid excessive use. Patient has multiple complex medical issues as listed above and others that are not listed. All appear to be stable. I do not have any clear or strong clinical justification to extend inpatient hospitalization. Patient however will require close and frequent monitoring as well as additional work-up, investigation and therapeutic intervention that could take place from this point on post discharge. That is to prevent relapse, decompensation, rehospitalization and other medical implications.. Discharge medications as listed are not final or set in stone. Primary care doctor and other out patient providers will need to titrate and adjust medications as soon as the first post discharge visit based on clinical progression, vitals signs, volume status and other related organs function. I instructed patient to ask her primary care doctor to obtain [facility] record entirely to address abnormalities seen on labs and imaging that I have and have not addressed during this hospitalization, follow-up on pending blood work, imaging and pathology is if available and to follow-up on needed medical care in the outpatient setting. Time Spent with Patient Time attestation: Total time spent providing and/or coordinating discharge services: Time spent: greater than 30 minutes Exam Narrative Exam Narrative: [pt is awake and alert. oriented to place, time and person HEENT: [place] conjunctiva and NL buccal mucosa Neck: Supple, no tenderness Endocrine: No Thyromegaly. Vascular: No JVD or carotid bruit. Lymphatic: No cervical lymphadenopathy. Chest: CTA no DTP. Heart RRR, no extra sound or murmur. Abd: Soft, no tenderness, no rebound and no rigidity. Increase abd girth therefore clinically I could not exclude the possibility of intra abd mass or organomegaly. LE: No cyanosis or clubbing, no varices or edema. Neuro: A A O. Nl speech, comprehension and attention. Nl and symetrical motor and tone examination through out. []] Constitutional Vital Signs, click to edit/add: Last Vital Signs Temp 97.9 F 09/07/25 08:00 Pulse 87 09/07/25 08:00 Resp 20 09/07/25 08:00 BP 148/90 H 09/07/25 08:00 Pulse Ox 96 09/07/25 08:00 O2 Del Method Room Air 09/07/25 08:00 DS: Data Data Completed and Pending Labs on day of discharge: Labs from last 24 hours 09/07/25 09/06/25 09/06/25 08:07 21:24 16:39 Hepatitis A IgM Ab Hep Bs Antigen Hep B Core IgM Ab Hepatitis C Antibody Hepatitis C Interp POC Glucose 195 H 207 H 233 H 09/06/25 09/05/25 12:47 19:39 Hepatitis A IgM Ab Negative Hep Bs Antigen Negative Hep B Core IgM Ab Negative Hepatitis C Antibody Non reactive Hepatitis C Interp Comment POC Glucose 225 H Discharge Plan Discharge Disposition: Home, Self-Care Discharge Medications: New atorvastatin 40 mg Tablet 40 mg PO QHS Qty: 30 1RF aspirin 81 mg Tablet,Delayed Release (Dr/Ec) 81 mg PO QD Qty: 60 2RF Insta-Glucose (with dextrin) 24 gram/31 gram Gel 31 g PO Q15M PRN (Reason: Hypoglycemia) Qty: 93 2RF Rx Instructions: Take if your blood sugar drops below 100 metformin 500 mg Tablet 500 mg PO BIDWM Qty: 60 2RF lisinopril 20 mg Tablet 20 mg PO DAILY Qty: 60 1RF glimepiride 2 mg Tablet 2 mg PO QD Qty: 30 2RF amlodipine 2.5 mg tablet 2.5 mg PO QD Qty: 30 2RF Continued magnesium 200 mg tablet 200 mg PO DAILY Patient Comments: uncertain of correct dose. cephalexin 500 mg capsule 500 mg PO Q6H Patient Comments: 09/01/25-09/07/25 Print Language: [place] Patient Instructions: Lisinopril (By mouth), Aspirin (By mouth), Amlodipine (By mouth), Glimepiride (By mouth), Metformin (By mouth), Atorvastatin (By mouth), Hypertensive Crisis (DC), Hypertension and Diabetes (DC) Activity Restrictions/Additional Instructions: I may not have addressed or treated all of your medical illnesses or the abnormal blood work or imaging studies during this hospitalization. Please ask your primary care provider to obtain [facility] records entirely to follow up on all of the abnormal physical, laboratory, and imaging findings that I have not addressed. Please return back to the emergency room or seek medical attention if your symptoms worsen or return. Discharging you from [facility] does not mean that your medical care ends here and now. You may still need additional monitoring, work up, investigation, and treatment plan to be handled from this point on by out patient providers including your primary care provider and specialists. Check your blood sugar 3 times a day before meals. Document these numbers on a blood glucose log and bring them with you to your follow-up appointment with your primary care doctor. Communicate with your primary care doctor or military personnel specialist if your blood sugar is under 100 or above 300 on 2 consecutive checks. Communicate with your primary care doctor or military personnel specialist if you have any questions about your diabetes medications. Signs of a low blood sugar include sweating, racing heart, dizziness and/or weakness. Check your blood sugar if you have any of the symptoms. Discharge medications as listed are not final or set in stone. Primary care doctor and other out patient providers will need to titrate and adjust medications as soon as the first post discharge visit based on clinical progression, vitals signs, volume status and other related organs function. I would recommend that your primary care doctor monitor your blood pressure, blood sugar and elevated liver enzymes closely over the next several months. For any medication question, please contact your retail pharmacist or your primary care provider. Thank you. Cnc Field Service Engineer/Cardiovascular Technician Instructions: Referral sent to [facility]- they will call patient for appointment Forms: Portal Instructions Follow Up Appointments: Nancy Wilson NP FridaySeptember 12 at 9a [address] [place] [phone]
--- NOTE | 2025-09-07 19:15 | NUTR.NU ---
Pt w/new dx DM2. Appears overwhelmed w/info provided by Nursing. Pt referred to [facility] for diabetic education.
--- NOTE | 2025-09-08 13:30 | CM.DCFOLLOWU ---
Person spoke with:Emanuel How are you feeling? Better How is your pain? Better Did you understand your discharge instructions? Yes Do you have any questions about your discharge instructions? No Were you given any prescriptions at discharge? Yes Were you able to get your prescriptions filled? Yes Do you understand how to take your medications as ordered? Yes Do you have any questions about your follow up appointment and do you plan to keep your follow up appointment? No questions and he plans on keeping his appts. Is there anything else that you would like to discuss? No Questions/Comments/Concerns/Other:
== END 2025-09-07 10:08 | disposition home or self-care (01) ==
LOC: ER 15:34 → MS 16:49
PROVIDERS: Admitting Provider Internal Medicine; Emergency Provider Emergency Medicine; PCP Nurse Practitioner; Visit Provider Internal Medicine
DX: I16.1 Hypertensive emergency (principal); I67.4 Hypertensive encephalopathy; E66.01 Morbid (severe) obesity due to excess calories; Z68.42 Body mass index [BMI] 45.0-49.9, adult; G92.9 Unspecified toxic encephalopathy; F17.290 Nicotine dependence, other tobacco product, uncomplicated; E11.9 Type 2 diabetes mellitus without complications; R74.01 Elevation of levels of liver transaminase levels; R42 Dizziness and giddiness; H53.2 Diplopia; I16.0 Hypertensive urgency; I10 Essential (primary) hypertension; E78.5 Hyperlipidemia, unspecified
CPT/HCPCS: 36415; 70030; 70450; 70496; 70498; 70553; 80048; 80053; 80061; 80074; 80076; 80307; 81001; 82948; 83036; 84484; 85025; 93005; 93306; 96372; 97161; 97165; 99285; A9575; G0378; J1650; Q9967